=== PATIENT | male | born 1940 | race Two or more races ===

== ENCOUNTER 2023-12-01 02:30 | Inpatient (IN) | payer OTHER ==
[~2023-12-01] VITALS: Ht 185.4 cm; Wt 84.0 kg
[2023-12-01] VITALS (11 sets, daily range): BP systolic 136–159; BP diastolic 70–87; PULSE 67–89; RESP 12–20; TEMP 98.2–99.1; O2SAT 90–98
[2023-12-01] MEDS ORDERED: HYDROcodone-ACET 5/325MG TAB PO PRN (04:45)
[2023-12-01] MEDS ORDERED: DOCUSATE SOD 100 MG CAP PO PRN (04:45)
[2023-12-01] MEDS ORDERED: ALBUTEROL SULF 2.5 MG/0.5ML(0.5%) NEB SOLN NEB PRN (04:45)
[2023-12-01] MEDS ORDERED: ONDANSETRON HCL 4 MG/2 ML VIAL IV PRN (04:45)
[2023-12-01] MEDS ORDERED: MORPHINE SULFATE INJ 2 MG/ml SYRG IV PRN ×2 (04:45)
[2023-12-01] MEDS ORDERED: IPRATROPIUM BROM 0.5 MG/2.5ML INH SOL NEB PRN (04:45)
[2023-12-01] MEDS ORDERED: ACETAMINOPHEN 325 MG TAB PO PRN (04:45)
[2023-12-01] MEDS ORDERED: DEXTROSE (50%) 50ML SYRG IV PRN (04:45)
[2023-12-01] MEDS ORDERED: NITROGLYCERIN 0.4 MG SL TAB SL PRN (04:45)
[2023-12-01] MEDS ORDERED: AMLO1TAB23 PO (05:16)
[2023-12-01] MEDS ORDERED: METO25TA5 PO (05:16)
[2023-12-01] MEDS ORDERED: PRAV20TA3 PO (05:16)
[2023-12-01 05:53] LABS: Basophils # (auto) 0.1 10 ^3/uL (0-0.2); Basophils % (auto) 0.7 % (0.0-2.0); Eosinophils # (auto) 0.3 10 ^3/uL (0-0.8); Eosinophils % (auto) 3.5 % (0.0-7.0); Hematocrit 36.3 % (41.0-53.0); Hemoglobin 12.5 g/dL (13.5-17.5); Lymphocytes # (auto) 1.2 10 ^3/uL (0.4-5.4); Lymphocytes % (auto) 14.7 % (10.0-50.0); Mean Corpuscular Hemoglobin 33.5 pg (28.0-32.0); Mean Corpuscular Hgb Conc. 34.5 g/dL (32.0-36.0); Mean Corpuscular Volume 97.1 fL (80.0-100.0); Monocytes # (auto) 0.4 10 ^3/uL (0-1.3); Monocytes % (auto) 5.3 % (0.0-12.0); Neutrophils # (auto) 6.2 10 ^3/uL (1.6-8.6); Neutrophils % (auto) 75.8 % (37.0-80.0); Red Blood Cells 3.74 10^6/uL (4.5-5.90); Red Cell Distribution Width 13.6 % (11.8-14.3); White Blood Cell 8.1 10^3/uL (4.4-10.8)
[2023-12-01 05:56] LABS: INR 1.07 (0.9-1.15); Prothrombin Time 11.2 sec (9.3-11.8)
[2023-12-01 05:57] LABS: Anion Gap 10 (5-15); Carbon Dioxide 20 mmol/L (20-30); Chloride 109 mmol/L (98-107); Potassium 3.6 mmol/L (3.5-5.1); Sodium 139 mmol/L (136-145)
[2023-12-01 05:58] LABS: Calcium 8.4 mg/dL (8.7-10.4)
[2023-12-01 06:03] LABS: BUN/Creatinine Ratio 9.2 (10.0-20.0); Blood Urea Nitrogen 8 mg/dL (9-23); Glucose 151 mg/dL (74-106)
[2023-12-01] MEDS ORDERED: METOPROLOL TARTRATE 25 MG TAB PO SCH (10:00)
[2023-12-01] MEDS: PANTOPRAZOLE 40 MG/10 ML VIAL INJ IV SCH (10:37)
[2023-12-01] MEDS: ENOXAPARIN SOD 40 MG/0.4 ML SYRINGE SC SCH (10:38)
[2023-12-01] MEDS: PRAVASTATIN SODIUM 20 MG TAB PO SCH (10:39)
[2023-12-01] MEDS: amLODIPine BESYLATE 5 MG TAB PO SCH (10:40)
[2023-12-01] MEDS ORDERED: METF-370 PO (10:42)
[2023-12-01] MEDS ORDERED: INSUINJ37 SC (10:42)
[2023-12-01] MEDS: InsuLIN REG 1unit/0.01ml Soln (100units/ml) SC SCH ×3 (11:30→22:00)
[2023-12-01] MEDS: ACCU-CHEK COMFORT CURVE STRIP VI SCH ×3 (11:36→22:00)
[2023-12-01] MEDS ORDERED: POTASSIUM CHL 20 Meq TABLET PO ONE (12:45)
[2023-12-01] MEDS: MAGNESIUM SULFATE 1GM/100ML 100 ML IV SCH ×2 (13:05→15:11)
[2023-12-01] MEDS: TAMSULOSIN HYDROCHLORIDE 0.4 MG CAP PO SCH (17:36)
[2023-12-01] MEDS: INSULIN LANTUS (GLARGINE) 1 /0.01ml (100units/ml) SC SCH (22:00)
[2023-12-02] VITALS (9 sets, daily range): BP systolic 132–145; BP diastolic 79–87; PULSE 92–116; RESP 16–22; O2SAT 93–98
[2023-12-02 05:17] LABS: Basophils # (auto) 0 10 ^3/uL (0-0.2); Basophils % (auto) 0.4 % (0.0-2.0); Eosinophils # (auto) 0.2 10 ^3/uL (0-0.8); Eosinophils % (auto) 3.1 % (0.0-7.0); Hematocrit 38.1 % (41.0-53.0); Lymphocytes # (auto) 0.7 10 ^3/uL (0.4-5.4); Lymphocytes % (auto) 9.2 % (10.0-50.0); Mean Corpuscular Hemoglobin 33.5 pg (28.0-32.0); Mean Corpuscular Hgb Conc. 34.3 g/dL (32.0-36.0); Mean Corpuscular Volume 97.8 fL (80.0-100.0); Monocytes # (auto) 0.5 10 ^3/uL (0-1.3); Monocytes % (auto) 5.8 % (0.0-12.0); Neutrophils # (auto) 6.6 10 ^3/uL (1.6-8.6); Neutrophils % (auto) 81.5 % (37.0-80.0); Nucleated Red Blood Cells % 0.1 %; Red Blood Cells 3.89 10^6/uL (4.5-5.90); White Blood Cell 8.1 10^3/uL (4.4-10.8)
[2023-12-02 05:25] LABS: Anion Gap 12 (5-15); Carbon Dioxide 19 mmol/L (20-30); Chloride 107 mmol/L (98-107); Potassium 3.6 mmol/L (3.5-5.1); Sodium 138 mmol/L (136-145)
[2023-12-02 05:26] LABS: Calcium 8.2 mg/dL (8.7-10.4)
[2023-12-02 05:31] LABS: BUN/Creatinine Ratio 9.2 (10.0-20.0); Blood Urea Nitrogen 8 mg/dL (9-23); Glucose 163 mg/dL (74-106)
[2023-12-02] MEDS: InsuLIN REG 1unit/0.01ml Soln (100units/ml) SC SCH ×4 (06:32→22:03)
[2023-12-02] MEDS: ACCU-CHEK COMFORT CURVE STRIP VI SCH ×4 (06:32→22:05)
[2023-12-02] MEDS: ENOXAPARIN SOD 40 MG/0.4 ML SYRINGE SC SCH (10:00)
[2023-12-02] MEDS: PRAVASTATIN SODIUM 20 MG TAB PO SCH (11:59)
[2023-12-02] MEDS: amLODIPine BESYLATE 5 MG TAB PO SCH (11:59)
[2023-12-02] MEDS: PANTOPRAZOLE 40 MG/10 ML VIAL INJ IV SCH (11:59)
[2023-12-02] MEDS ORDERED: ceFAZolin 2 GM/D5W100ml 100 ML IV ONE (14:19)
[2023-12-02] MEDS ORDERED: AMIODARONE 450mg/250ml AE 250 ML IV SCH (16:30)
[2023-12-02] MEDS ORDERED: LEVALBUTEROL HCL 1.25 MG/3 ML NEB NEB PRN (17:15)
[2023-12-02] MEDS: LACTATED RINGER'S 1,000 ML IV SCH (17:15)
[2023-12-02] MEDS ORDERED: ONDANSETRON HCL 4 MG/2 ML VIAL IV PRN (17:15)
[2023-12-02] MEDS ORDERED: ACCU-CHEK COMFORT CURVE STRIP VI ONE (17:15)
[2023-12-02] MEDS ORDERED: NALOXONE HCL 0.4 MG/ML VIAL IV PRN (17:15)
[2023-12-02] MEDS ORDERED: DexAMETHasone SOD PHOS 10MG/1ML VIAL INJ IV PRN (17:15)
[2023-12-02] MEDS: TAMSULOSIN HYDROCHLORIDE 0.4 MG CAP PO SCH (18:00)
[2023-12-02] MEDS: ceFAZolin 1GM/50ML 50 ML IV SCH (19:54)
[2023-12-02] MEDS: INSULIN LANTUS (GLARGINE) 1 /0.01ml (100units/ml) SC SCH (22:05)
[2023-12-02] MEDS: AMIODARONE 450mg/250ml AE 250 ML IV SCH (22:22)
[2023-12-03] VITALS (23 sets, daily range): BP systolic 115–156; BP diastolic 53–96; PULSE 73–101; RESP 16–19; TEMP 97.8–98.4; O2SAT 96–99
[2023-12-03] MEDS: LACTATED RINGER'S 1,000 ML IV SCH ×3 (03:15→23:15)
[2023-12-03] MEDS: ceFAZolin 1GM/50ML 50 ML IV SCH ×2 (03:48→11:06)
[2023-12-03] MEDS: AMIODARONE 450mg/250ml AE 250 ML IV SCH (03:57)
[2023-12-03] MEDS: ACCU-CHEK COMFORT CURVE STRIP VI SCH ×4 (06:34→22:19)
[2023-12-03] MEDS: InsuLIN REG 1unit/0.01ml Soln (100units/ml) SC SCH ×4 (06:35→22:20)
[2023-12-03 07:27] LABS: Basophils # (auto) 0 10 ^3/uL (0-0.2); Basophils % (auto) 0.1 % (0.0-2.0); Eosinophils # (auto) 0 10 ^3/uL (0-0.8); Hematocrit 31.5 % (41.0-53.0); Monocytes # (auto) 0.3 10 ^3/uL (0-1.3); Neutrophils % (auto) 92.9 % (37.0-80.0); White Blood Cell 9.7 10^3/uL (4.4-10.8)
[2023-12-03 07:30] LABS: Lymphocytes # (auto) 0.4 10 ^3/uL (0.4-5.4); Lymphocytes % (auto) 3.6 % (10.0-50.0); Mean Corpuscular Hgb Conc. 34.8 g/dL (32.0-36.0); Mean Corpuscular Volume 97.6 fL (80.0-100.0); Monocytes % (auto) 3.4 % (0.0-12.0); Red Blood Cells 3.23 10^6/uL (4.5-5.90); Red Cell Distribution Width 13.5 % (11.8-14.3)
[2023-12-03 07:41] LABS: Anion Gap 9 (5-15); Calcium 8.4 mg/dL (8.5-10.1); Carbon Dioxide 20 mmol/L (20-30); Chloride 105 mmol/L (98-107); Potassium 4.1 mmol/L (3.5-5.1); Sodium 134 mmol/L (136-145)
[2023-12-03 07:47] LABS: BUN/Creatinine Ratio 11.3 (10.0-20.0); Blood Urea Nitrogen 12 mg/dL (9-23)
[2023-12-03 07:48] LABS: Glucose 332 mg/dL (74-106)
[2023-12-03] MEDS: ENOXAPARIN SOD 40 MG/0.4 ML SYRINGE SC SCH (10:55)
[2023-12-03] MEDS: amLODIPine BESYLATE 5 MG TAB PO SCH (10:56)
[2023-12-03] MEDS: PRAVASTATIN SODIUM 20 MG TAB PO SCH (10:57)
[2023-12-03] MEDS ORDERED: ceFAZolin 1GM/50ML 50 ML IV ONE (11:00)
[2023-12-03] MEDS: TAMSULOSIN HYDROCHLORIDE 0.4 MG CAP PO SCH (17:06)
[2023-12-03 17:27] LABS: COVID19 ANTIGEN SOFIA FIA NEGATIVE (NEGATIVE)
[2023-12-03] MEDS: INSULIN LANTUS (GLARGINE) 1 /0.01ml (100units/ml) SC SCH (22:21)
[2023-12-03] MEDS: KETOROLAC TROMETH 30 MG/ML 1ML VIAL IV PRN (22:33)
[2023-12-04 05:00] VITALS: BP 136/82; PULSE 84; RESP 17; TEMP 98.3; O2SAT 98
[2023-12-04 06:52] LABS: Basophils # (auto) 0 10 ^3/uL (0-0.2); Eosinophils # (auto) 0 10 ^3/uL (0-0.8); Hemoglobin 9.9 g/dL (13.5-17.5); Monocytes # (auto) 0.4 10 ^3/uL (0-1.3)
[2023-12-04 06:55] LABS: Basophils % (auto) 0.1 % (0.0-2.0); Eosinophils % (auto) 0.5 % (0.0-7.0); Hematocrit 27.9 % (41.0-53.0); Lymphocytes # (auto) 0.5 10 ^3/uL (0.4-5.4); Lymphocytes % (auto) 6.8 % (10.0-50.0); Mean Corpuscular Hemoglobin 34.5 pg (28.0-32.0); Mean Corpuscular Hgb Conc. 35.5 g/dL (32.0-36.0); Mean Corpuscular Volume 97.1 fL (80.0-100.0); Neutrophils # (auto) 6.9 10 ^3/uL (1.6-8.6); Neutrophils % (auto) 87.6 % (37.0-80.0); Red Blood Cells 2.87 10^6/uL (4.5-5.90); Red Cell Distribution Width 13.9 % (11.8-14.3); White Blood Cell 7.9 10^3/uL (4.4-10.8)
[2023-12-04] MEDS: ACCU-CHEK COMFORT CURVE STRIP VI SCH ×3 (07:00→17:47)
[2023-12-04 07:05] LABS: Anion Gap 8 (5-15); Carbon Dioxide 22 mmol/L (20-30); Chloride 106 mmol/L (98-107); Potassium 3.5 mmol/L (3.5-5.1); Sodium 136 mmol/L (136-145)
[2023-12-04 07:06] LABS: Calcium 8.2 mg/dL (8.7-10.4)
[2023-12-04 07:11] LABS: BUN/Creatinine Ratio 17.3 (10.0-20.0); Blood Urea Nitrogen 14 mg/dL (9-23); Glucose 235 mg/dL (74-106)
[2023-12-04] MEDS: InsuLIN REG 1unit/0.01ml Soln (100units/ml) SC SCH ×3 (07:46→17:47)
[2023-12-04 08:00] VITALS: PULSE 70
[2023-12-04 09:00] VITALS: BP 132/61; PULSE 74; RESP 18; TEMP 98.2; O2SAT 96
[2023-12-04] MEDS: PRAVASTATIN SODIUM 20 MG TAB PO SCH (10:17)
[2023-12-04] MEDS: amLODIPine BESYLATE 5 MG TAB PO SCH (10:18)
[2023-12-04] MEDS: ENOXAPARIN SOD 40 MG/0.4 ML SYRINGE SC SCH (10:18)
[2023-12-04] MEDS: KETOROLAC TROMETH 30 MG/ML 1ML VIAL IV PRN ×2 (10:26→17:31)
[2023-12-04 13:00] VITALS: BP 139/68; PULSE 67; RESP 18; TEMP 98.9; O2SAT 97
[2023-12-04 16:39] VITALS: BP 140/66; PULSE 72; RESP 17; TEMP 98; O2SAT 98
[2023-12-04] MEDS: TAMSULOSIN HYDROCHLORIDE 0.4 MG CAP PO SCH (17:46)
== END 2023-12-04 19:15 | DRG 481 ==
LOC: TELE-WESTW 04:22 → UNDOADMIN 04:22 → TELE-WESTW 04:58
PROVIDERS: ADMIT Nurse Practitioner Family; ATTEND Hospitalist
PROC: 0QS704Z Reposition Left Upper Femur with Internal Fixation Device, Open Approach (ICD-10-PCS; principal; 2023-12-02 15:39)
DX: S72.142A Displaced intertrochanteric fracture of left femur, initial encounter for closed fracture (principal); I47.10 Supraventricular tachycardia, unspecified; I48.20 Chronic atrial fibrillation, unspecified; I11.0 Hypertensive heart disease with heart failure; E11.9 Type 2 diabetes mellitus without complications; I50.9 Heart failure, unspecified; N40.0 Benign prostatic hyperplasia without lower urinary tract symptoms; Z20.822 Contact with and (suspected) exposure to COVID-19; E78.5 Hyperlipidemia, unspecified; J44.9 Chronic obstructive pulmonary disease, unspecified; F03.A0 Unspecified dementia, mild, without behavioral disturbance, psychotic disturbance, mood disturbance, and anxiety; I48.0 Paroxysmal atrial fibrillation; I45.10 Unspecified right bundle-branch block; W18.39XA Other fall on same level, initial encounter; I25.2 Old myocardial infarction; Z95.2 Presence of prosthetic heart valve; Z82.0 Family history of epilepsy and other diseases of the nervous system; Z80.3 Family history of malignant neoplasm of breast; Z88.2 Allergy status to sulfonamides; Y93.89 Activity, other specified; Y92.89 Other specified places as the place of occurrence of the external cause; Y99.8 Other external cause status
CPT/HCPCS: 36415; 71045; 72192; 73502; 76000; 80048; 82962; 83735; 85025; 85610; 87426; 93306; 97110; 97116; 97163; 97530; C9113; G0378; J1815; J1885

== ENCOUNTER 2024-01-06 17:38 | Emergency (ER) | payer OTHER ==
[~2024-01-06] VITALS: Ht 185.4 cm; Wt 76.1 kg
[2024-01-06 17:38] VITALS: BP 145/73; RESP 15; O2SAT 98
[~2024-01-06 17:38] MED LIST: AMLO1TAB23 PO; INSUINJ37 SC; METF-370 PO; METO25TA5 PO; PRAV20TA3 PO
[2024-01-06 18:05] VITALS: PULSE 77
[2024-01-06 18:57] LABS: Basophils # (auto) 0.1 10 ^3/uL (0-0.2); Basophils % (auto) 0.9 % (0.0-2.0); Eosinophils # (auto) 0.3 10 ^3/uL (0-0.8); Eosinophils % (auto) 5.3 % (0.0-7.0); Hematocrit 39.6 % (41.0-53.0); Hemoglobin 13.2 g/dL (13.5-17.5); Lymphocytes # (auto) 1.3 10 ^3/uL (0.4-5.4); Lymphocytes % (auto) 21.1 % (10.0-50.0); Mean Corpuscular Hemoglobin 33.8 pg (28.0-32.0); Mean Corpuscular Hgb Conc. 33.4 g/dL (32.0-36.0); Monocytes # (auto) 0.4 10 ^3/uL (0-1.3); Monocytes % (auto) 6.3 % (0.0-12.0); Neutrophils # (auto) 4.2 10 ^3/uL (1.6-8.6); Neutrophils % (auto) 66.4 % (37.0-80.0); Nucleated Red Blood Cells % 0.1 %; Red Blood Cells 3.92 10^6/uL (4.5-5.90); Red Cell Distribution Width 15.8 % (11.8-14.3); White Blood Cell 6.4 10^3/uL (4.4-10.8)
[2024-01-06 19:03] LABS: Alanine Aminotransferase 10 U/L (7-40); Albumin 4.4 g/dL (3.2-4.8); Alkaline Phosphatase 132 U/L (46-116); Anion Gap 7 (5-15); Aspartate Aminotransferase 16 U/L (13-40); BUN/Creatinine Ratio 12.6 (10.0-20.0); Bilirubin, Total 0.5 mg/dL (0.2-1.0); Blood Urea Nitrogen 13 mg/dL (9-23); Calcium 9.8 mg/dL (8.5-10.1); Carbon Dioxide 25 mmol/L (20-30); Chloride 109 mmol/L (98-107); Glucose 120 mg/dL (74-106); Potassium 4.2 mmol/L (3.5-5.1); Sodium 141 mmol/L (136-145); Total Protein 7.9 g/dL (5.7-8.2)
== END 2024-01-06 19:48 | disposition left against medical advice (07) ==
LOC: ER 17:38
DX: R00.1 Bradycardia, unspecified (principal); Z53.21 Procedure and treatment not carried out due to patient leaving prior to being seen by health care provider
CPT/HCPCS: 36415; 80053; 84484; 85025; 93005

== ENCOUNTER 2025-04-22 22:36 | Inpatient (IN) | payer OTHER ==
[~2025-04-22] VITALS: Ht 188 cm; Wt 76.1 kg
--- NOTE | 2025-04-22 23:00 | ED.PDOC ---
HPI Comments 84-year-old Male who came to ER via EMS for chest pains. Per EMS, patient picked up at home, so extensive cardiac history including hypertension, diabetes, AFib, CHF, COPD, mi, dementia, status post valve replacement. This morning, patient has been complaining of chest pains, and he self-medicated with 4 nitroglycerin which provided relief for the pain, At about 7pm, he started experiencing upper back pains, so he took his aspirin prior to calling paramedics for help. At this time he states pain has resolved, denies any nausea, vomiting or shortness of breath Chief Complaint: Chest Pain Time Seen by MD: 22:59 Primary Care Provider: NONE Reviewed Notes: Specialty Development Consultant Notes Allergies: Coded Allergies: Sulfa Antibiotics (Verified Allergy, Unknown, 12/01/23) Home Meds Reported Medications Insulin Glargine (Lantus Solostar) 100 Unit/Ml Inj, 0-50 UNIT SC DAILY 12/01/23 Metformin Hydrochloride (Metformin Hcl) 500 Mg Tab, 1 TAB PO BID 12/01/23 Pravastatin Sodium (PRAVACHOL TABLET) 20 Mg Tb, 1 TAB PO DAILY, #30 TAB 5 Refills 12/01/23 Amlodipine Besylate (Amlodipine Besylate) 10 Mg Tab, 1 TAB PO DAILY, #30 TAB 5 Refills 12/01/23 Metoprolol Tartrate (Metoprolol Tartrate) 25 Mg Tab, 25 MG PO DAILY, TAB 12/01/23 Information Source: Patient, Emergency Med Personnel Mode of Arrival: EMS Severity: Moderate Timing: Hours Duration: Intermittent Prehospital treatment: ASA, NTG, Oxygen Location: Substernal Radiation: Back Quality: Pressure Onset: With Light Exertion Cardiac Risk Factors: HTN, Diabetes History of: Similar pain in past, [place] Associated Signs and Symptoms: Back Pain Past Medical History PAST MEDICAL HISTORY: AFIB, CHF, COPD, Dementia, DM, HTN, [place] Surgical History (Other): Left hip surgery, valve replacement Family History Family History: Reviewed,noncontributory to illness Social History Smoker: Non-Smoker Alcohol: Denies ETOH Use Drugs: Denies Drug Use Lives In: Home Constitutional: denies: chills, diaphoresis, fatigue, fever, malaise, sweats, weakness, others EENTM: denies: blurred vision, double vision, ear bleeding, ear discharge, ear drainage, ear pain, ear ringing, eye pain, eye redness, hearing loss, mouth pain, mouth swelling, nasal discharge, nose bleeding, nose congestion, nose pain, photophobia, tearing, throat pain, throat swelling, voice changes, others Respiratory: denies: cough, hemoptysis, orthopnea, SOB at rest, shortness of breath, SOB with excertion, stridor, wheezing, others Cardiovascular: reports: chest pain; denies: dizzy spells, diaphoresis, Dyspnea on exertion, edema, irregular heart beat, left arm pain, lightheadedness, palpitations, PND, syncope, others Gastrointestinal: denies: abdomen distended, abdominal pain, blood streaked bowels, constipated, diarrhea, dysphagia, difficulty swallowing, hematemesis, melena, nausea, poor appetite, poor fluid intake, rectal bleeding, rectal pain, vomiting, others Genitourinary: denies: burning, dysuria, flank pain, frequency, hematuria, incontinence, penile discharge, penile sore, pain, testicle pain, testicle swelling, urgency, others Neurological: denies: dizziness, fainting, headache, left sided numbness, left sided weakness, numbness, paresthesia, pre-existing deficit, right sided numbness, right sided weakness, seizure, speech problems, tingling, tremors, weakness, others Musculoskeletal: reports: back pain; denies: gout, joint pain, joint swelling, muscle pain, muscle stiffness, neck pain, others Integumetry: denies: bruises, change in color, change in hair/nails, dryness, laceration, lesions, lumps, rash, wounds, others Allergic/Immunocompromised: denies: Difficulty Healing, Frequent Infections, Hives, Itching, others Hematologic/Lymphatic: denies: anemia, blood clots, easy bleeding, easy bruising, swollen glands, others Endocrine: denies: excessive hunger, excessive sweating, excessive thirst, excessive urination, flushing, intolerance to cold, intolerance to heat, unexplained weight gain, unexplained weight loss, others Psychiatric: denies: anxiety, bipolar disorder, depression, hopeless, panic disorder, schizophrenia, sleepless, suicidal, others Physical Exam General Appearance: No Apparent Distress, Normal HEENT: Normal ENT Inspection, Pharynx Normal, TMs Normal Neck: Full Range of Motion, Non-Tender, Normal, Normal Inspection Respiratory: Chest Non-Tender, Lungs Clear, No Accessory Muscle Use, No Respiratory Distress, Normal Breath Sounds Cardiovascular: No Edema, No JVD, No Murmur, No Gallop, Normal Peripheral Pulses, Regular Rate/Rhythm Breast Exam: Deferred Gastrointestinal: No Organomegaly, Non Tender, No Pulsatile Mass, Normal Bowel Sounds, Soft Genitalia: Deferred Pelvic: Deferred Rectal: Deferred Extremities: No calf tenderness, Normal capillary refill, Normal inspection, Normal range of motion, Non-tender, No pedal edema Musculoskeletal : Apperance: Normal Neurologic: Alert, tunnel worker II-XII nml as Tested, No Motor Deficits, Normal Affect, Normal Mood, No Sensory Deficits Cerebellar Function: Normal Reflexes: Normal Skin: Dry, Normal Color, Warm Lymphatic: No Adenopathy Was a procedure done? Was a procedure done?: No CP Differential Dx Differential Diagnosis: Angina, Anxiety / Panic Attack Differential Diagnosis: Angina, Chest Wall Pain, Costochondritis, Esophageal reflux/spasm, Gastritis, Myocardial Infarction X-Ray, Labs, Meds, VS Vital Signs Date Time Temp Pulse Resp B/P (MAP) Pulse Ox O2 Delivery O2 Flow Rate FiO2 04/23/25 02:09 68 16 139/58 (85) 96 04/23/25 02:06 68 16 96 Room Air* 0 21 04/23/25 01:41 70 04/23/25 01:00 75 15 113/62 (79) 92 04/23/25 00:00 77 04/22/25 23:38 85 04/22/25 23:10 87 16 94 Room Air* 0 21 04/22/25 23:07 97.8 87 16 144/75 (98) 94 97.8 04/22/25 22:38 90 04/22/25 22:36 98.2 89 16 160/82 (108) 94 98.2 Lab Test 04/23/25 01:46 04/22/25 23:30 04/22/25 22:38 Range/Units Troponin I High Sensitivity 182 *H 89 *H 43 </=54 ng/L White Blood Count 4.9 4.4-10.8 10^3/uL Red Blood Count 3.21 L 4.5-5.90 10^6/uL Hemoglobin 9.3 L 13.5-17.5 g/dL Hematocrit 28.2 L 41.0-53.0 % Mean Corpuscular Volume 87.8 80.0-100.0 fL Mean Corpuscular Hemoglobin 29.0 28.0-32.0 pg Mean Corpuscular Hemoglobin Concent 33.0 32.0-36.0 g/dL Red Cell Distribution Width 15.5 H 11.8-14.3 % Platelet Count 176 140-450 10^3/uL Mean Platelet Volume 8.8 6.9-10.8 fL Neutrophils (%) (Auto) 71.8 37.0-80.0 % Lymphocytes (%) (Auto) 14.2 10.0-50.0 % Monocytes (%) (Auto) 7.2 0.0-12.0 % Eosinophils (%) (Auto) 6.2 0.0-7.0 % Basophils (%) (Auto) 0.6 0.0-2.0 % Neutrophils # (Auto) 3.5 1.6-8.6 10 ^3/uL Lymphocytes # (Auto) 0.7 0.4-5.4 10 ^3/uL Monocytes # (Auto) 0.4 0-1.3 10 ^3/uL Eosinophils # (Auto) 0.3 0-0.8 10 ^3/uL Basophils # (Auto) 0 0-0.2 10 ^3/uL Nucleated Red Blood Cells 0.0 % Prothrombin Time 10.8 9.3-11.8 sec Prothrombin Time INR 1.02 0.9-1.15 Activated Partial Thromboplast Time 26.6 24.5-34.5 SEC Sodium Level 142 136-145 mmol/L Potassium Level 2.8 L 3.5-5.1 mmol/L Chloride Level 109 H 98-107 mmol/L Carbon Dioxide Level 23 20-31 mmol/L Anion Gap 10 5-15 Blood Urea Nitrogen 10 9-23 mg/dL Creatinine 1.08 0.700-1.30 mg/dL Glomerular Filtration Rate Calc 67 >90 mL/min BUN/Creatinine Ratio 9.3 L 10.0-20.0 Serum Glucose 212 H 74-106 mg/dL Calcium Level 8.5 L 8.7-10.4 mg/dL Magnesium Level 2.0 1.6-2.6 mg/dL Total Bilirubin 0.6 0.2-1.0 mg/dL Aspartate Amino Transferase (AST) < 8 L 13-40 U/L Alanine Aminotransferase (ALT) < 9 7-40 U/L Alkaline Phosphatase 103 46-116 U/L B-Type Natriuretic Peptide 483.26 0-100 pg/mL Total Protein 7.4 5.7-8.2 g/dL Albumin 4.0 3.2-4.8 g/dL Current Medications Medications (Trade) Dose Ordered Sig/Zabrina Route Start Time Stop Time Status Last Admin Potassium Chloride (Klor-Con Tablet) 40 meq ONCE ONCE PO 04/23/25 00:00 04/23/25 00:01 DC 04/23/25 00:22 Time of 1ST Reevaluation: 22:53 Reevaluation 1ST: Unchanged Patient Education/Counseling: Diagnosis, Treatment Family Education/Counseling: No Family Present Departure 1 Departure Time of Disposition: 02:00 Impression: Primary Impression: Acute coronary syndrome Disposition: ADMITTED INPATIENT Condition: Guarded Discharged With: Self Critical Care Note Critical Care Time?: Yes (35 min-critical care time only) Critical care comment: Chest pains Stability Stability form required: No Heart Score Heart Score: Heart Score Response (Comments) Value History Moderate Suspicious 1 EKG Repolarization Disturb 1 Age >65 2 Risk Factors >3 or Hx ASHD 2 Troponin Normal limit 0 Total 6 I personally scribed for SHEILA GUTIERREZ MD ([email or web address]) on 04/22/25 at 23:00. Electronically submitted by Brown Rosales ([facility]). SHEILA GUTIERREZ MD April 22, 2025 23:00
[2025-04-22 23:05] LABS: Basophils # (auto) 0 10 ^3/uL (0-0.2); Basophils % (auto) 0.6 % (0.0-2.0); Eosinophils # (auto) 0.3 10 ^3/uL (0-0.8); Eosinophils % (auto) 6.2 % (0.0-7.0); Hematocrit 28.2 % (41.0-53.0); Hemoglobin 9.3 g/dL (13.5-17.5); Lymphocytes # (auto) 0.7 10 ^3/uL (0.4-5.4); Lymphocytes % (auto) 14.2 % (10.0-50.0); Mean Corpuscular Volume 87.8 fL (80.0-100.0); Monocytes # (auto) 0.4 10 ^3/uL (0-1.3); Monocytes % (auto) 7.2 % (0.0-12.0); Neutrophils # (auto) 3.5 10 ^3/uL (1.6-8.6); Neutrophils % (auto) 71.8 % (37.0-80.0); Platelet Count (auto) 176 10^3/uL (140-450); Red Blood Cells 3.21 10^6/uL (4.5-5.90); Red Cell Distribution Width 15.5 % (11.8-14.3); White Blood Cell 4.9 10^3/uL (4.4-10.8)
[2025-04-22 23:10] VITALS: PULSE 87; RESP 16; O2SAT 94
[2025-04-22 23:13] LABS: INR 1.02 (0.9-1.15); Partial Thromboplastin Time 26.6 SEC (24.5-34.5); Prothrombin Time 10.8 sec (9.3-11.8)
[2025-04-22 23:15] LABS: Alkaline Phosphatase 103 U/L (46-116); Anion Gap 10 (5-15); BUN/Creatinine Ratio 9.3 (10.0-20.0); Blood Urea Nitrogen 10 mg/dL (9-23); Carbon Dioxide 23 mmol/L (20-31); Sodium 142 mmol/L (136-145); Total Protein 7.4 g/dL (5.7-8.2)
[2025-04-22 23:16] LABS: Bilirubin, Total 0.6 mg/dL (0.2-1.0)
[2025-04-22 23:18] LABS: Alanine Aminotransferase < 9 U/L (7-40); Aspartate Aminotransferase < 8 U/L (13-40); Calcium 8.5 mg/dL (8.7-10.4); Chloride 109 mmol/L (98-107); Glucose 212 mg/dL (74-106); Potassium 2.8 mmol/L (3.5-5.1)
--- NOTE | 2025-04-22 23:54 | DVH ---
CHEST RADIOGRAPH Indication: chest pain Technique: Single frontal view of the chest was obtained COMPARISON: XY CHEST PORTABLE on DOS: 12/01/23 FINDINGS: Lines and Tubes: None Lungs: No evidence of pulmonary infiltrates or edema. Mild chronic appearing reticular opacities not ed at the lung bases. Pleura: No effusion. No pneumothorax. Cardiomediastinal contours: Mild cardiomegaly. IMPRESSION: No acute disease.
[2025-04-23] VITALS (9 sets, daily range): BP systolic 126–217; BP diastolic 57–111; PULSE 51–88; RESP 16–18; TEMP 96.7–98.5; O2SAT 95–99
[2025-04-23] MEDS: POTASSIUM CHL 20 Meq TABLET PO ONE ×2 (00:22→06:13)
[2025-04-23] MEDS ORDERED: ASPirin 81 mg TAB PO ONE (00:30)
[2025-04-23] MEDS ORDERED: DOCUSATE SOD 100 MG CAP PO PRN (03:00)
[2025-04-23] MEDS ORDERED: MORPHINE SULFATE INJ 2 MG/ml SYRG IV PRN (03:00)
[2025-04-23] MEDS ORDERED: DEXTROSE (50%) 50ML SYRG IV PRN (03:00)
--- NOTE | 2025-04-23 03:23 | ECG ---
[facility] Test Date: 2025-04-22 Test Time: 23:38:08 Pat Name: CONNOR ALBERTO Department: ED Room: 0220T Gender: M Auto Wrecker: JANKI : 1940 Requested By: SHEILA GUTIERREZ Order Number: [id number] Reading MD: Doni Puentes Measurements Intervals [place] Rate: 85 P: -33 IA: 208 QRS: -71 QRSD: 167 T: 86 QT: 443 QTc: 527 Interpretive Statements Sinus rhythm RBBB and LAFB Left ventricular hypertrophy Baseline wander in lead(s) I,II,aVR Electronically Signed On 04-26-2025 12:00:28 PDT by Doni Puentes Please click the below link to view image of tracing.
--- NOTE | 2025-04-23 03:23 | ECG ---
[facility] Test Date: 2025-04-22 Test Time: 22:38:52 Pat Name: CONNOR ALBERTO Department: ED Room: 0220T Gender: M Hospitalist Nocturnist Physician: JANKI : 1940 Requested By: SHEILA GUTIERREZ Order Number: [id number] Reading MD: Doni Puentes Measurements Intervals [place] Rate: 90 P: 18 CT: 202 QRS: -75 QRSD: 171 T: 93 QT: 439 QTc: 538 Interpretive Statements Sinus rhythm Right bundle branch block LVH with IVCD and secondary repol abnrm Prolonged QT interval Electronically Signed On 04-26-2025 12:00:19 PDT by Doni Puentes Please click the below link to view image of tracing.
--- NOTE | 2025-04-23 03:24 | ECG ---
[facility] Test Date: 2025-04-23 Test Time: 01:41:06 Pat Name: CONNOR ALBERTO Department: ED Room: 0220T Gender: M Adolescent Psychiatrist: adalberto : 1940 Requested By: HSEILA GUTIERREZ Order Number: [id number] Reading MD: Doni Puentes Measurements Intervals [place] Rate: 70 P: -37 AL: 236 QRS: -67 QRSD: 170 T: 80 QT: 463 QTc: 500 Interpretive Statements Sinus rhythm Prolonged AL interval RBBB and LAFB Left ventricular hypertrophy Baseline wander in lead(s) V2,V4 Electronically Signed On 04-26-2025 12:01:10 PDT by Doni Puentes Please click the below link to view image of tracing.
[2025-04-23 03:55] LABS: Anion Gap 10 (5-15); Carbon Dioxide 22 mmol/L (20-31); Sodium 142 mmol/L (136-145)
[2025-04-23] MEDS: InsuLIN REG 1unit/0.01ml Soln (100units/ml) SC SCH (04:00)
[2025-04-23] MEDS: ACCU-CHEK COMFORT CURVE STRIP VI SCH (04:00)
[2025-04-23 04:01] LABS: Blood Urea Nitrogen 10 mg/dL (9-23)
[2025-04-23 04:05] LABS: Basophils # (auto) 0 10 ^3/uL (0-0.2); Basophils % (auto) 0.5 % (0.0-2.0); Eosinophils # (auto) 0.3 10 ^3/uL (0-0.8); Hematocrit 26.9 % (41.0-53.0); Hemoglobin 8.9 g/dL (13.5-17.5); Lymphocytes # (auto) 1.1 10 ^3/uL (0.4-5.4); Lymphocytes % (auto) 25.2 % (10.0-50.0); Mean Corpuscular Hemoglobin 29.3 pg (28.0-32.0); Mean Corpuscular Volume 88.8 fL (80.0-100.0); Monocytes # (auto) 0.5 10 ^3/uL (0-1.3); Monocytes % (auto) 10.4 % (0.0-12.0); Neutrophils # (auto) 2.5 10 ^3/uL (1.6-8.6); Neutrophils % (auto) 56.9 % (37.0-80.0); Nucleated Red Blood Cells % 0.1 %; Platelet Count (auto) 161 10^3/uL (140-450); Red Blood Cells 3.03 10^6/uL (4.5-5.90); Red Cell Distribution Width 15.4 % (11.8-14.3); White Blood Cell 4.3 10^3/uL (4.4-10.8)
[2025-04-23 04:15] LABS: Calcium 8.4 mg/dL (8.7-10.4); Chloride 110 mmol/L (98-107); Glucose 119 mg/dL (74-106); Potassium 3.1 mmol/L (3.5-5.1)
--- NOTE | 2025-04-23 05:17 | DVHHP2 ---
MACRINA DONALD CARE PROVIDER 04/23/25 0517: History of Present Illness Reason for Visit: Chest pain History of Present Illness 84-year-old male with past medical history of CHF, AFib, COPD, DM, dementia, hard of hearing presents with complaints of chest pain x1 day. Information in this HPI is limited due to the patient being a poor historian and having difficulty with hearing. Patient reported treating with sublingual nitroglycerin. Which improved chest pain. During the emergency department evaluation troponin 43/89/182 at this time patient denies fevers, chills, shortness of breath, palpitations, nausea, vomiting. Cardiovascular: AFIB, CHF, HTN Smoke: No ALCOHOL: none Lives: with Family Review of Systems Constitutional: No: Fever, Chills, Sweats, Weakness, Malaise, Other Eyes: No: Pain, Vision change, Conjunctivae inflammation, Eyelid inflammation, Other, Redness ENT: No: Ear pain, Ear discharge, Nose pain, Nose discharge, Nose congestion, Mouth pain, Mouth swelling, Throat pain, Throat swelling, Other Respiratory: No: Cough, Dry, Shortness of breath, SOB with excertion, Wheezing, Hemoptysis, Pleuritic Pain, Sputum, Wheezing, Other Cardiovascular: Chest Pain; No: Palpitations, Orthopnea, Paroxysmal Noc. Dyspnea, Edema, Lt Headedness, Other Gastrointestinal: No: Nausea, Vomiting, Abdominal Pain, Diarrhea, Constipation, Melena, Hematochezia, Other Genitourinary: No Dysuria, No Frequency, No Incontinence, No Hematuria, No Retention, No Other Musculoskeletal: No: other, neck pain, shoulder pain, arm pain, back pain, hand pain, leg pain, foot pain Skin: No: Rash, Lesions, Jaundice, Bruising, Other Neurological: No: Weakness, Numbness, Incoordination, Change in speech, Confusion, Seizures, Other Allergies: Coded Allergies: Sulfa Antibiotics (Verified Allergy, Unknown, 12/01/23) Medications Current Medications Medications Dose Ordered Sig/Zabrina Route Start Time Stop Time Status Last Admin Dose Admin Docusate Sodium 100 mg BIDPRN PRN PO 04/23/25 03:00 Acetaminophen 650 mg Q6HP PRN PO 04/23/25 03:00 Ondansetron HCl 4 mg Q4HP PRN IV 04/23/25 03:00 Morphine Sulfate 2 mg Q4HPRN PRN IV 04/23/25 03:00 Enoxaparin Sodium 40 mg DAILY SC 04/23/25 10:00 Nitroglycerin 0.4 mg Q5MINP PRN SL 04/23/25 03:00 Morphine Sulfate 2 mg Q30M PRN IV 04/23/25 03:00 Diagnostic Test (Pha) 1 strip IQ4HR 04/23/25 04:00 04/23/25 04:00 1 STRIP Insulin Human Regular IQ4HR SC 04/23/25 04:00 Dextrose 50 ml UD PRN IV 04/23/25 03:00 Aspirin 81 mg DAILY PO 04/23/25 10:00 Metoprolol Tartrate 25 mg DAILY PO 04/23/25 10:00 Exam Vital Signs Vital Signs Date Time Temp Pulse Resp B/P (MAP) Pulse Ox O2 Delivery O2 Flow Rate FiO2 04/23/25 04:00 76 04/23/25 04:00 97.3 18 154/58 (90) 96 97.3 04/23/25 02:06 Room Air* 0 21 General Appearance: Alert, Oriented X3, Cooperative, No acute distress HEENT: Atraumatic, PERRLA, Other (Hard of hearing) Respiratory: Clear to auscultation, Normal air movement Cardiovascular: Regular rate, Normal S1, Normal S2 Abdominal: Normal bowel sounds, Soft, No tenderness Extremities: No cyanosis, No edema Skin: No rashes, No breakdown Psych/Mental Status: Mental status NL, Mood NL Labs/Xrays Labs Test 04/23/25 04:34 04/23/25 03:26 04/23/25 01:46 04/22/25 22:38 Range/Units POC Glucose 83 70-106 mg/dl White Blood Count 4.3 L 4.4-10.8 10^3/uL Red Blood Count 3.03 L 4.5-5.90 10^6/uL Hemoglobin 8.9 L 13.5-17.5 g/dL Hematocrit 26.9 L 41.0-53.0 % Mean Corpuscular Volume 88.8 80.0-100.0 fL Mean Corpuscular Hemoglobin 29.3 28.0-32.0 pg Mean Corpuscular Hemoglobin Concent 33.0 32.0-36.0 g/dL Red Cell Distribution Width 15.4 H 11.8-14.3 % Platelet Count 161 140-450 10^3/uL Mean Platelet Volume 8.8 6.9-10.8 fL Neutrophils (%) (Auto) 56.9 37.0-80.0 % Lymphocytes (%) (Auto) 25.2 10.0-50.0 % Monocytes (%) (Auto) 10.4 0.0-12.0 % Eosinophils (%) (Auto) 7.0 0.0-7.0 % Basophils (%) (Auto) 0.5 0.0-2.0 % Neutrophils # (Auto) 2.5 1.6-8.6 10 ^3/uL Lymphocytes # (Auto) 1.1 0.4-5.4 10 ^3/uL Monocytes # (Auto) 0.5 0-1.3 10 ^3/uL Eosinophils # (Auto) 0.3 0-0.8 10 ^3/uL Basophils # (Auto) 0 0-0.2 10 ^3/uL Nucleated Red Blood Cells 0.1 % Sodium Level 142 136-145 mmol/L Potassium Level 3.1 L 3.5-5.1 mmol/L Chloride Level 110 H 98-107 mmol/L Carbon Dioxide Level 22 20-31 mmol/L Anion Gap 10 5-15 Blood Urea Nitrogen 10 9-23 mg/dL Creatinine 1.00 0.700-1.30 mg/dL Glomerular Filtration Rate Calc 73 >90 mL/min BUN/Creatinine Ratio 10.0 10.0-20.0 Serum Glucose 119 H 74-106 mg/dL Calcium Level 8.4 L 8.7-10.4 mg/dL Troponin I High Sensitivity 182 *H </=54 ng/L Prothrombin Time 10.8 9.3-11.8 sec Prothrombin Time INR 1.02 0.9-1.15 Activated Partial Thromboplast Time 26.6 24.5-34.5 SEC Magnesium Level 2.0 1.6-2.6 mg/dL Total Bilirubin 0.6 0.2-1.0 mg/dL Aspartate Amino Transferase (AST) < 8 L 13-40 U/L Alanine Aminotransferase (ALT) < 9 7-40 U/L Alkaline Phosphatase 103 46-116 U/L B-Type Natriuretic Peptide 483.26 0-100 pg/mL Total Protein 7.4 5.7-8.2 g/dL Albumin 4.0 3.2-4.8 g/dL Assessment/Plan Assessment/Plan Chest pain Elevated troponin Hypokalemia DM Hx AFIB Hx CHF HX COPD Plan Admit to telemetry Cardiology consult. Echocardiogram. ACS protocol: ASA, beta sabrina, statin. Continue home medication's after medication reconciliation that we completed. Serial troponin.. Bronchodilators. As needed supplemental oxygen to maintain O2 saturation greater than 93% Monitor BMP. Correct electrolytes as needed GI ppx protonix / dvt ppx lovenox Plan discussed with: Patient My Orders Orders - MACRINA DONALD NP Procedure Category Date Status Time Admit ADMIT 04/23/25 Transmitted 02:48 Code Status CODE 04/23/25 Transmitted 02:48 Vital Signs LUIGI 04/23/25 In Process 02:48 Review Orders With LUIGI 04/23/25 In Process Adm. 02:48 Encourage Activity As LUIGI 04/23/25 In Process Tolerate 02:48 Oxygen By Face Mask RT 04/23/25 Transmitted 02:48 Docusate Sodium PHA 04/23/25 In Process Capsule (Colace 03:00 Acetaminophen Tablet PHA 04/23/25 In Process (Tylenol Tablet) 03:00 Notify Of Changes LUIGI 04/23/25 In Process From Base 02:48 Advance Directive LUIGI 04/23/25 In Process 02:48 Echo 2d Mode Cardiac US 04/23/25 Logged DOP 02:48 Basic Metabolic Panel LAB 04/24/25 Verified 05:00 Basic Metabolic Panel LAB 04/25/25 Verified 05:00 Basic Metabolic Panel LAB 04/26/25 Verified 05:00 Basic Metabolic Panel LAB 04/27/25 Verified 05:00 Complete Blood Count LAB 04/24/25 Verified 05:00 Complete Blood Count LAB 04/25/25 Verified 05:00 Complete Blood Count LAB 04/26/25 Verified 05:00 Complete Blood Count LAB 04/27/25 Verified 05:00 Patient Condition ORDERS 04/23/25 Transmitted 02:48 Allergies LUIGI 04/23/25 In Process 02:48 Ondansetron Hcl PHA 04/23/25 In Process (Zofran) 03:00 Morphine Sulfate PHA 04/23/25 In Process Injection 03:00 Enoxaparin Sodium PHA 04/23/25 In Process (Lovenox) 10:00 Sequential LUIGI 04/23/25 In Process Compression Device Nitroglycerin PHA 04/23/25 In Process Sublingual (Ntrostat 03:00 Morphine Sulfate PHA 04/23/25 In Process Injection 03:00 Stat Ekg For Chest LUIGI 04/23/25 In Process Pain 02:48 Notify Md Of Changes [facility] 04/23/25 In Process From Base 02:48 Conductor Yard For [facility] 04/23/25 In Process 24 Hours 02:48 Emergency Dysrhythmia LUIGI 04/23/25 In Process Protocol 02:48 Rhythm Strips Once LUIGI 04/23/25 In Process Every Shift 02:48 Oxygen By Nasal RT 04/23/25 Transmitted Cannula 02:48 Glucose Blood PHA 04/23/25 In Process (Accu-Chek Comfort 04:00 Insulin R (Human) PHA 04/23/25 In Process (Insulin R) 04:00 Dextrose 50% Syringe PHA 04/23/25 In Process 03:00 Aspirin Enteric PHA 04/23/25 In Process Coated Tablet 10:00 Metoprolol Tartrate PHA 04/23/25 In Process Tablet (Lopressor Ta 10:00 * Cardiology Consult CONS 04/23/25 Transmitted 02:48 Troponin-I Hs LAB 04/23/25 Logged 06:00 Troponin-I Hs LAB 04/23/25 Logged 14:00 Troponin-I Hs LAB 04/23/25 Logged 22:00 Consistent DIET 04/23/25 Transmitted Carb(Ccho)Diabetes Breakfast Potassium Er Tablet PHA 04/23/25 Transmitted (Klor-Con Tablet) 05:15 Date of Service: April 23, 2025 Billing Provider: SANDRA MCFARLANE MD Common Visit Codes: NOT BILLABLE SANDRA MCFARLANE MD 04/23/25 1521: Review of Systems Allergies: Coded Allergies: Sulfa Antibiotics (Verified Allergy, Unknown, 12/01/23) Additional Comments Additional Comments Additional Comments The patient was seen and evaluated by me. I agree with the assessment and plan of my nurse practitioner. We will wait for Cardiology evaluation. MACRINA DONALD NP April 23, 2025 05:17 SANDRA MCFARLANE MD April 23, 2025 15:21
[2025-04-23] MEDS: ASPirin-EC 81 mg tab PO SCH (08:53)
[2025-04-23] MEDS: ENOXAPARIN SOD 40 MG/0.4 ML SYRINGE SC SCH (08:53)
[2025-04-23] MEDS: METOPROLOL TARTRATE 25 MG TAB PO SCH (08:54)
[2025-04-23] MEDS ORDERED: FLUT250M2 INH (11:48)
[2025-04-23] MEDS ORDERED: FER325T PO (11:48)
[2025-04-23] MEDS ORDERED: CARV3.1240 PO (11:48)
[2025-04-23] MEDS ORDERED: MELA3TAB27 PO (11:48)
[2025-04-23] MEDS ORDERED: TAMS0.4C39 PO (11:48)
[2025-04-23] MEDS ORDERED: FLU01T PO (11:48)
[2025-04-23] MEDS ORDERED: OMEP20TA PO (11:48)
[2025-04-23] MEDS ORDERED: CLOP75TA70 PO (11:48)
[2025-04-23] MEDS ORDERED: ASPI81CH59 PO (11:48)
[2025-04-23] MEDS ORDERED: MULT-688 PO (11:48)
[2025-04-23] MEDS ORDERED: SACU1TAB PO (11:48)
[2025-04-23] MEDS: hydrALAZINE HCL 20 MG/ML VL IV PRN (20:44)
[2025-04-23] MEDS: NITROGLYCERIN 0.4 MG SL TAB SL PRN (22:03)
[2025-04-23] MEDS: ONDANSETRON HCL 4 MG/2 ML VIAL IV PRN (22:24)
[2025-04-23] MEDS: LABETALOL HCL 20 MG/4 ML VL IV ONE (22:33)
[2025-04-24] VITALS (8 sets, daily range): BP systolic 129–187; BP diastolic 72–99; PULSE 72–98; RESP 14–18; TEMP 97.5–98; O2SAT 94–99
[2025-04-24] MEDS: ACETAMINOPHEN 325 MG TAB PO PRN (00:31)
--- NOTE | 2025-04-24 01:54 | DVHSR ---
APPROVED REPORT EXAM: Two-dimensional and M-mode echocardiogram with Doppler and color Doppler. Blood Pressure: 140/57 mmHg INDICATION Chest Pain Surgery/Intervention Valve Replacement: Type: TAVR RISK FACTORS Height: 6'2", Weight: 166 DIMENSIONS LVDd4.6 (3.8-5.7cm)LA (2D)3.8 (1.9-4.0cm)Aortic Root (2.0-3.7cm) LVDs3.4 (2.5-4.0cm)LA (MM) (1.9-4.0cm)Aortic Cusp Exc (1.5-2.0cm) EF (%) 52.0 (55-70%)Rt. Atrium3.8 (1.9-4.0cm)Asc. Aorta cm IVSd1.5 (0.7-1.1cm)RV (D) (1.8-2.4cm) PWd4.9 (0.7-1.1cm) Mitral Valve MitralMitral Stenosis E wave0.76m/sMV Mean GR.mmHg A wave1.23m/sMV Peak GR.mmHg E/A ratio0.62D MVAcm2 DECEL [id number] 1/2 Timems Aortic Valve Aortic ValveAortic Stenosis V11.78m/Fadmuo Mean GR.8mmHg V21.80m/Fadumo Peak GR.14mmHg LVOT Diameter2.1 (1.8-2.4cm)Doppler AVA3.42cm2 AI P 1/2 Hvnc848.27ms Pulmonic Valve V20.76m/s Other Information Quality : Technically LimitedRhythm : Technically limited study due to body habitus and moving. 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
[2025-04-24 06:24] LABS: Basophils # (auto) 0 10 ^3/uL (0-0.2); Basophils % (auto) 0.4 % (0.0-2.0); Eosinophils # (auto) 0.2 10 ^3/uL (0-0.8); Eosinophils % (auto) 3.4 % (0.0-7.0); Hematocrit 29.4 % (41.0-53.0); Hemoglobin 9.5 g/dL (13.5-17.5); Lymphocytes # (auto) 0.8 10 ^3/uL (0.4-5.4); Lymphocytes % (auto) 15.5 % (10.0-50.0); Mean Corpuscular Hemoglobin 28.6 pg (28.0-32.0); Mean Corpuscular Hgb Conc. 32.3 g/dL (32.0-36.0); Mean Corpuscular Volume 88.7 fL (80.0-100.0); Monocytes # (auto) 0.5 10 ^3/uL (0-1.3); Monocytes % (auto) 9.2 % (0.0-12.0); Neutrophils # (auto) 3.8 10 ^3/uL (1.6-8.6); Neutrophils % (auto) 71.5 % (37.0-80.0); Platelet Count (auto) 172 10^3/uL (140-450); Red Blood Cells 3.32 10^6/uL (4.5-5.90); Red Cell Distribution Width 15.7 % (11.8-14.3); White Blood Cell 5.3 10^3/uL (4.4-10.8)
[2025-04-24 07:33] LABS: Sodium 141 mmol/L (136-145)
[2025-04-24 07:34] LABS: Anion Gap 14 (5-15); Calcium 8.9 mg/dL (8.7-10.4)
[2025-04-24 07:43] LABS: Blood Urea Nitrogen 9 mg/dL (9-23); Carbon Dioxide 16 mmol/L (20-31); Chloride 111 mmol/L (98-107); Glucose 153 mg/dL (74-106); Potassium 3.3 mmol/L (3.5-5.1)
--- NOTE | 2025-04-24 16:42 | DVHPN2 ---
Subjective I am assuming the care of the patient was from today onwards. Patient troponins are trending down cardiology consult is pending. Reviewed: Care Plan Changes from previous H/P or p: No Changes Eyes: No Pain, No Vision change, No Conjunctivae inflammation, No Eyelid inflammation, No Other, No Redness ENT: No Ear pain, No Ear discharge, No Nose pain, No Nose discharge, No Nose congestion, No Mouth pain, No Mouth swelling, No Throat pain, No Throat swelling, No Other Cardiovascular: Chest Pain; No Palpitations, No Orthopnea, No Paroxysmal Noc. Dyspnea, No Edema, No Lt Headedness, No Other Respiratory: No Cough, No Dry, No Shortness of breath, No SOB with excertion, No Wheezing, No Hemoptysis, No Pleuritic Pain, No Sputum, No Other Gastrointestinal: No Nausea, No Vomiting, No Abdominal Pain, No Diarrhea, No Constipation, No Melena, No Hematochezia, No Other Genitourinary: No Dysuria, No Frequency, No Incontinence, No Hematuria, No Retention, No Other Musculoskeletal: No other, No neck pain, No shoulder pain, No arm pain, No back pain, No hand pain, No leg pain, No foot pain Skin: No Rash, No Lesions, No Jaundice, No Bruising, No Other Objective Vitals Vital Signs Date Time Temp Pulse Resp B/P (MAP) Pulse Ox O2 Delivery O2 Flow Rate FiO2 04/24/25 13:00 97.5 78 14 148/77 (100) 98 97.5 04/24/25 08:00 Room Air* 0 21 Intake/Output Intake and Output 04/24/25 07:00 Intake Total 940 ml Balance 940 ml Intake Oral 940 ml # Voids 9 Exam HEENT pupils are reactive Neck is supple CV is S1-S2 regular rate and rhythm Respiratory diminished breath sound bases GI posterior bowel sound Extremity no 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 Medications Current Medications Medications Dose Ordered Sig/Zabrina Route Start Time Stop Time Status Last Admin Dose Admin Docusate Sodium 100 mg BIDPRN PRN PO 04/23/25 03:00 Acetaminophen 650 mg Q6HP PRN PO 04/23/25 03:00 04/24/25 00:31 650 MG Ondansetron HCl 4 mg Q4HP PRN IV 04/23/25 03:00 04/23/25 22:24 4 MG Morphine Sulfate 2 mg Q4HPRN PRN IV 04/23/25 03:00 Enoxaparin Sodium 40 mg DAILY SC 04/23/25 10:00 04/24/25 09:53 40 MG Nitroglycerin 0.4 mg Q5MINP PRN SL 04/23/25 03:00 04/23/25 22:12 0.4 MG Morphine Sulfate 2 mg Q30M PRN IV 04/23/25 03:00 Diagnostic Test (Pha) 1 strip IQ4HR 04/23/25 04:00 04/24/25 12:05 1 STRIP Insulin Human Regular IQ4HR SC 04/23/25 04:00 04/24/25 12:07 2 UNITS Dextrose 50 ml UD PRN IV 04/23/25 03:00 Aspirin 81 mg DAILY PO 04/23/25 10:00 04/24/25 09:53 81 MG Metoprolol Tartrate 25 mg DAILY PO 04/23/25 10:00 04/24/25 09:52 25 MG Hydralazine HCl 10 mg Q4HPRN PRN IV 04/23/25 20:45 04/24/25 01:11 10 MG Laboratory Results Laboratory Tests 04/24/25 06:06 Chemistry Test 04/24/25 06:06 Calcium Level 8.9 mg/dL (8.7-10.4) Assessment/Plan Assessment/Plan 64-year-old male presented to the hospital with a has been found to have 1. Chest pain with a NSTEMI 2. Diabetes mellitus type 2 3. Congestive heart failure not in exacerbation 4. Hypertension 5. COPD not in exacerbation 6. Hard of hearing -2D echo cardiology consulting continue has been statin beta-sabrina. Plan discussed with: Patient, Other My Orders Orders - SANDRA MCFARLANE MD Procedure Category Date Status Time * Cardiology Consult CONS 04/24/25 Transmitted 15:03 Date of Service: April 24, 2025 Billing Provider: SANDRA MCFARLANE MD Common Visit Codes: NOT BILLABLE SANDRA MCFARLANE MD April 24, 2025 16:42
[2025-04-25] VITALS (8 sets, daily range): BP systolic 125–189; BP diastolic 65–84; PULSE 76–102; RESP 16–20; TEMP 97.3–98.2; O2SAT 92–98
[2025-04-25] MEDS: MORPHINE SULFATE INJ 2 MG/ml SYRG IV PRN (07:36)
[2025-04-25 07:51] LABS: Basophils # (auto) 0 10 ^3/uL (0-0.2); Basophils % (auto) 0.4 % (0.0-2.0); Eosinophils # (auto) 0.2 10 ^3/uL (0-0.8); Eosinophils % (auto) 2.7 % (0.0-7.0); Hematocrit 30.5 % (41.0-53.0); Hemoglobin 9.7 g/dL (13.5-17.5); Lymphocytes # (auto) 0.8 10 ^3/uL (0.4-5.4); Mean Corpuscular Hemoglobin 28.8 pg (28.0-32.0); Mean Corpuscular Hgb Conc. 31.7 g/dL (32.0-36.0); Mean Corpuscular Volume 90.7 fL (80.0-100.0); Monocytes # (auto) 0.6 10 ^3/uL (0-1.3); Monocytes % (auto) 8.6 % (0.0-12.0); Neutrophils # (auto) 5.3 10 ^3/uL (1.6-8.6); Neutrophils % (auto) 77.3 % (37.0-80.0); Nucleated Red Blood Cells % 0.1 %; Platelet Count (auto) 182 10^3/uL (140-450); Red Blood Cells 3.36 10^6/uL (4.5-5.90); Red Cell Distribution Width 15.9 % (11.8-14.3); White Blood Cell 6.8 10^3/uL (4.4-10.8)
[2025-04-25 08:01] LABS: Anion Gap 11 (5-15); Carbon Dioxide 22 mmol/L (20-31); Potassium 3.5 mmol/L (3.5-5.1)
[2025-04-25 08:02] LABS: Calcium 9.5 mg/dL (8.7-10.4)
[2025-04-25 08:06] LABS: Chloride 112 mmol/L (98-107); Sodium 145 mmol/L (136-145)
[2025-04-25 08:07] LABS: BUN/Creatinine Ratio 14.9 (10.0-20.0); Blood Urea Nitrogen 14 mg/dL (9-23)
[2025-04-25 08:08] LABS: Glucose 137 mg/dL (74-106)
--- NOTE | 2025-04-25 13:24 | DVHINCON2 ---
Date Seen: April 25, 2025 Referring Physician MD Sharron Reason for Consultation Chest pain, elevated trops History of Present Illness This is an 84-year-old man who presented to the emergency room via EMS with a chief complaint of chest pain since 04/22/2025. The patient has a history of de mentia and is a poor historian. Information obtained from at bedside who reports intermittent substernal chest pain radiating to his left upper back prompting her to call 911. Upon EMS arrival he underwent a 12 lead electrocardiogram revealing a normal sinus rhythm and a BGL of 220 mg/dL. He underwent subsequent 12 lead electrocardiograms in the emergency room x 3 revealing a sinus rhythm with an associated right bundle branch block and suggestive of left ventricular hypertrophy. Troponin levels peaked at 223 ng/L. Follows up in the outpatient setting with Dr. Puentes who suggested a cardiac catheterization as outpatient. Of note, as inpatient the patient has complaint of chest pain and medicated with NTG SL with relief of symptoms. Significant medical history includes paroxysmal atrial fibrillation off DOAC given hx of anemia, status post TAVR at [facility] on 2021, hypertension, dyslipidemia, insulin-dependent diabetes mellitus, benign prostatic hyperplasia, anemia, and dementia. Past Medical History Past medical history reviewed. No other significant than mentioned above. Past Surgical History TAVR, 2021 Family History: Alzheimer's disease FATHER FH: breast cancer MOTHER Family History Family history reviewed. Social History Denies the use of illicit drugs, alcohol, or tobacco use. Allergies: Coded Allergies: Sulfa Antibiotics (Verified Allergy, Unknown, 12/01/23) Home Meds Reported Medications Melatonin (KP MELATONIN) 3 Mg Tab, 10 MG PO, TAB 04/23/25 Tamsulosin Hcl (Tamsulosin Hcl) 0.4 Mg Cap, 1 CAP PO DAILY, #30 CAP 5 Refills 04/23/25 Omeprazole (Gnp Omeprazole) 20 Mg Tab, 1 TAB PO DAILY, #30 TAB 3 Refills 04/23/25 Multiple Vitamins W/ Minerals (PRESERVISION AREDS 2) Areds 2 Cap, 1 2 PO, CAP 04/23/25 Sacubitril-Valsartan (Entresto 24-26 mg) 1 Tab Tab, 1 TAB PO, TAB 04/23/25 Fluticasone-Salmeterol (Advair Diskus 250/50) 1 Puff Ih, 1 PUFF INH BID, #1 INHALER 5 Refills 04/23/25 Fludrocortisone Acetate (Florinef) 0.1 Mg Tb, 1 TAB PO DAILY, #30 TAB 5 Refills 04/23/25 Ferrous Sulfate (FERROUS SULFATE) 325 Mg Tb, 1 TAB PO DAILY, #30 TAB 3 Refills 04/23/25 Clopidogrel Bisulfate (CLOPIDOGREL) 75 Mg Tab, 1 TAB PO DAILY, #30 TAB 5 Refills 04/23/25 Carvedilol (Carvedilol) 3.125 Mg Tab, 1 TAB PO BID, #60 TAB 3 Refills 04/23/25 Aspirin (Aspirin Low Dose) 81 Mg Chw, 81 MG PO, TAB.CHEW 04/23/25 Insulin Glargine (Lantus Solostar) 100 Unit/Ml Inj, 0-50 UNIT SC DAILY 12/01/23 Metformin Hydrochloride (Metformin Hcl) 500 Mg Tab, 1 TAB PO BID 12/01/23 Pravastatin Sodium (PRAVACHOL TABLET) 20 Mg Tb, 1 TAB PO DAILY, #30 TAB 5 Refills 12/01/23 Amlodipine Besylate (Amlodipine Besylate) 10 Mg Tab, 1 TAB PO DAILY, #30 TAB 5 Refills 12/01/23 Metoprolol Tartrate (Metoprolol Tartrate) 25 Mg Tab, 25 MG PO DAILY, TAB 12/01/23 Home Meds Home medications reviewed. Review of Systems Constitutional: No symptom reported Ears, Nose, & Throat: No symptom reported Eyes: No symptom reported Neurological: No symptoms reported Pulmonary/Respiratory: No symptom reported Cardiovascular: Chest pain Gastrointestinal: No symptom reported Genitourinary: No symptom reported Musculoskeletal: No symptom reported Skin: No symptom reported Psychiatric: No symptom reported Endocrine: No symptom reported Hemotologic/Lymphatic: No symptom reported Vital Signs Vital Signs Date Time Temp Pulse Resp B/P (MAP) Pulse Ox O2 Delivery O2 Flow Rate FiO2 04/25/25 09:01 92 189/83 04/25/25 08:06 20 04/25/25 08:00 97 Room Air* 0 21 04/25/25 05:00 98.1 98.1 Physical Exam General Appearance: Cooperative. Elder. Well nourished. In no acute distress Head Exam: Normal inspection Neck Exam: Normal inspection. Non-tender. Normal alignment Pulmonary/Respiratory: Chest non-tender. Clear bilateral breath sounds Cardiovascular/Chest: Regular rate and rhythm. S1, S2. Sinus rhythm with RBBB and LVH. No murmurs. No JVD. Peripheral Pulses: 2+ Radial (R). 2+ Radial (L). 2+ Pedal (R). 2+ Pedal (L) Abdominal Exam: Normal bowel sounds. Soft. Nontender. No hepatospenomegaly. No masses Ankle Exam: Negative ankle edema Lower extremities: Negative lower extremity edema Neuro/Mental Status: A&O x2. Alert but poor historian Thoughts/Psych: Unable to assess at this time Appearance: In no acute distress Skin Exam: Normal inspection. Normal color. Warm. Dry Labs/Diagnostic Data Labs Test 04/25/25 08:48 04/25/25 06:49 04/23/25 22:03 04/22/25 22:38 Range/Units POC Glucose 137 H 70-106 mg/dl White Blood Count 6.8 # 4.4-10.8 10^3/uL Red Blood Count 3.36 L 4.5-5.90 10^6/uL Hemoglobin 9.7 L 13.5-17.5 g/dL Hematocrit 30.5 L 41.0-53.0 % Mean Corpuscular Volume 90.7 80.0-100.0 fL Mean Corpuscular Hemoglobin 28.8 28.0-32.0 pg Mean Corpuscular Hemoglobin Concent 31.7 L 32.0-36.0 g/dL Red Cell Distribution Width 15.9 H 11.8-14.3 % Platelet Count 182 140-450 10^3/uL Mean Platelet Volume 9.1 6.9-10.8 fL Neutrophils (%) (Auto) 77.3 37.0-80.0 % Lymphocytes (%) (Auto) 11.0 10.0-50.0 % Monocytes (%) (Auto) 8.6 0.0-12.0 % Eosinophils (%) (Auto) 2.7 0.0-7.0 % Basophils (%) (Auto) 0.4 0.0-2.0 % Neutrophils # (Auto) 5.3 1.6-8.6 10 ^3/uL Lymphocytes # (Auto) 0.8 0.4-5.4 10 ^3/uL Monocytes # (Auto) 0.6 0-1.3 10 ^3/uL Eosinophils # (Auto) 0.2 0-0.8 10 ^3/uL Basophils # (Auto) 0 0-0.2 10 ^3/uL Nucleated Red Blood Cells 0.1 % Sodium Level 145 136-145 mmol/L Potassium Level 3.5 3.5-5.1 mmol/L Chloride Level 112 H 98-107 mmol/L Carbon Dioxide Level 22 20-31 mmol/L Anion Gap 11 5-15 Blood Urea Nitrogen 14 9-23 mg/dL Creatinine 0.94 0.700-1.30 mg/dL Glomerular Filtration Rate Calc 79 >90 mL/min BUN/Creatinine Ratio 14.9 10.0-20.0 Serum Glucose 137 H 74-106 mg/dL Calcium Level 9.5 8.7-10.4 mg/dL Troponin I High Sensitivity 48 </=54 ng/L Prothrombin Time 10.8 9.3-11.8 sec Prothrombin Time INR 1.02 0.9-1.15 Activated Partial Thromboplast Time 26.6 24.5-34.5 SEC Magnesium Level 2.0 1.6-2.6 mg/dL Total Bilirubin 0.6 0.2-1.0 mg/dL Aspartate Amino Transferase (AST) < 8 L 13-40 U/L Alanine Aminotransferase (ALT) < 9 7-40 U/L Alkaline Phosphatase 103 46-116 U/L B-Type Natriuretic Peptide 483.26 0-100 pg/mL Total Protein 7.4 5.7-8.2 g/dL Albumin 4.0 3.2-4.8 g/dL Assessment Non ST-elevation myocardial infarction Acute coronary syndrome rule out coronary artery disease Severe aortic valve stenosis status post TAVR (2021) Paroxysmal atrial fibrillation, now NSR (off NOAC) Aortic valve regurgitation, moderate degree Hypertension Dyslipidemia [id number] diabetes mellitus Dementia Plan/Recommendation (Dr. Dasilva) Scheduled for a cardiac catheterization and coronary angiogram with Dr. Puentes on 04/28/2025. Risks and benefits of the procedure were discussed with the at bedside who agreed to proceed with intervention. All questions answered. Thoracic echocardiogram revealing LVEF of 65% with moderate degree of aortic regurgitation. In the meantime, continue single antiplatelet therapy, lipid lowering agent, and initiate therapeutic Lovenox. Monitor H&H closely. Continue chest pain protocol. Monitor ECG changes and notify. Rest of plan per clinical course. Thank you for allowing us to participate in this patient's care. Please call if you have any questions or concerns. This medical document was created using an electronic medical record system with voice recognition software and computerized dictation system. Although this document has been carefully reviewed, there might still be some phonetic and typographical errors. Occasional wrong-word or ``sound-alike substitutions may have occurred due to the inherent limitations of voice recognition software. These areas are purely typographical due to imperfections of the software programs and do not reflect any compromise in the patient's medical care. Please read the chart carefully and recognize, using context, where these substitutions have occurred. Plan discussed with: Patient, Spouse, Other NYHA Physical activity limitations: NA Date of Service: April 25, 2025 Billing Provider: PRAVEEN BALL Cardiology Common Codes: [id number] INP/OBS CARE (High) PRAVEEN BALL April 25, 2025 13:24
--- NOTE | 2025-04-25 17:17 | DVHPN2 ---
Subjective Patient was seen by Cardiology currently scheduled for left heart catheterization. Reviewed: Care Plan Changes from previous H/P or p: No Changes Eyes: No Pain, No Vision change, No Conjunctivae inflammation, No Eyelid inflammation, No Other, No Redness ENT: No Ear pain, No Ear discharge, No Nose pain, No Nose discharge, No Nose congestion, No Mouth pain, No Mouth swelling, No Throat pain, No Throat swelling, No Other Cardiovascular: Chest Pain; No Palpitations, No Orthopnea, No Paroxysmal Noc. Dyspnea, No Edema, No Lt Headedness, No Other Respiratory: No Cough, No Dry, No Shortness of breath, No SOB with excertion, No Wheezing, No Hemoptysis, No Pleuritic Pain, No Sputum, No Other Gastrointestinal: No Nausea, No Vomiting, No Abdominal Pain, No Diarrhea, No Constipation, No Melena, No Hematochezia, No Other Genitourinary: No Dysuria, No Frequency, No Incontinence, No Hematuria, No Retention, No Other Musculoskeletal: No other, No neck pain, No shoulder pain, No arm pain, No back pain, No hand pain, No leg pain, No foot pain Skin: No Rash, No Lesions, No Jaundice, No Bruising, No Other Objective Vitals Vital Signs Date Time Temp Pulse Resp B/P (MAP) Pulse Ox O2 Delivery O2 Flow Rate FiO2 04/25/25 13:35 169/84 04/25/25 10:01 83 04/25/25 08:06 20 04/25/25 08:00 97 Room Air* 0 21 04/25/25 05:00 98.1 98.1 Intake/Output Intake and Output 04/25/25 07:00 Intake Total 1340 ml Balance 1340 ml Intake Oral 1340 ml # Voids 7 # Bowel Movements 1 Exam HEENT pupils are reactive Neck is supple CV is S1-S2 regular rate and rhythm Respiratory diminished breath sound bases GI posterior bowel sound Extremity no edema 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 Medications Current Medications Medications Dose Ordered Sig/Zabrina Route Start Time Stop Time Status Last Admin Dose Admin Docusate Sodium 100 mg BIDPRN PRN PO 04/23/25 03:00 Acetaminophen 650 mg Q6HP PRN PO 04/23/25 03:00 04/24/25 00:31 650 MG Ondansetron HCl 4 mg Q4HP PRN IV 04/23/25 03:00 04/23/25 22:24 4 MG Morphine Sulfate 2 mg Q4HPRN PRN IV 04/23/25 03:00 04/25/25 07:36 2 MG Nitroglycerin 0.4 mg Q5MINP PRN SL 04/23/25 03:00 04/25/25 07:41 0.4 MG Morphine Sulfate 2 mg Q30M PRN IV 04/23/25 03:00 Diagnostic Test (Pha) 1 strip IQ4HR 04/23/25 04:00 04/25/25 15:59 1 STRIP Insulin Human Regular IQ4HR SC 04/23/25 04:00 04/25/25 16:02 2 UNITS Dextrose 50 ml UD PRN IV 04/23/25 03:00 Aspirin 81 mg DAILY PO 04/23/25 10:00 04/25/25 09:01 81 MG Metoprolol Tartrate 25 mg DAILY PO 04/23/25 10:00 04/25/25 09:01 25 MG Hydralazine HCl 10 mg Q4HPRN PRN IV 04/23/25 20:45 04/25/25 13:35 10 MG Enoxaparin Sodium 80 mg Q12HR SC 04/25/25 22:00 Atorvastatin Calcium 40 mg HS PO 04/25/25 22:00 Amlodipine Besylate 10 mg DAILY PO 04/26/25 10:00 Fludrocortisone Acetate 0.1 mg DAILY PO 04/26/25 10:00 Clopidogrel Bisulfate 75 mg DAILY PO 04/26/25 10:00 Sacubitril/ Valsartan 1 tab BID PO 04/25/25 22:00 Laboratory Results Laboratory Tests 04/25/25 06:49 Chemistry Test 04/25/25 06:49 Calcium Level 9.5 mg/dL (8.7-10.4) Assessment/Plan Assessment/Plan 64-year-old male presented to the hospital with a has been found to have 1. Chest pain with a NSTEMI 2. Diabetes mellitus type 2 3. Congestive heart failure not in exacerbation 4. Hypertension 5. COPD not in exacerbation 6. Hard of hearing -2D echo cardiology consulting continue has been statin beta-sabrina. -left heart catheterization per Cardiology. Plan discussed with: Patient, Spouse My Orders Orders - SANDRA MCFARLANE MD Procedure Category Date Status Time Amlodipine Tablet PHA 04/26/25 In Process (Norvasc Tablet) 10:00 Fludrocortisone PHA 04/26/25 In Process Tablet (Florinef 10:00 Clopidogrel Bisulfate PHA 04/26/25 In Process (Plavix) 10:00 Sacubitril-Valsartan PHA 04/25/25 In Process (Entresto 24-26 Mg 22:00 Pt Request For Service PT 04/25/25 Logged 15:39 Date of Service: April 25, 2025 Billing Provider: SANDRA MCFARLANE MD Common Visit Codes: NOT BILLABLE SANDRA MCFARLANE MD April 25, 2025 17:17
[2025-04-25] MEDS: ATORVASTATIN 20 MG TAB PO SCH (20:29)
[2025-04-25] MEDS: SACUBITRIL-VALSARTAN 24mg/26mg TAB PO SCH (20:29)
[2025-04-25] MEDS: ENOXAPARIN SOD 80 MG/0.8ML SYRINGE SC SCH (20:29)
[2025-04-26 01:00] VITALS: BP 173/82; PULSE 98; RESP 16; TEMP 98; O2SAT 96
[2025-04-26 05:00] VITALS: BP 123/54; PULSE 113; RESP 18; TEMP 98.1; O2SAT 98
[2025-04-26 08:00] VITALS: PULSE 101; PULSE 107; RESP 17; O2SAT 98
[2025-04-26] MEDS: FLUDROCORTISONE ACETATE 0.1 MG TAB PO SCH (10:12)
[2025-04-26] MEDS: CLOPIDOGREL BISULFATE 75 MG TAB PO SCH (10:13)
[2025-04-26] MEDS: amLODIPine BESYLATE 5 MG TAB PO SCH (10:18)
[2025-04-26 10:27] LABS: Basophils # (auto) 0 10 ^3/uL (0-0.2); Basophils % (auto) 0.2 % (0.0-2.0); Eosinophils # (auto) 0.1 10 ^3/uL (0-0.8); Eosinophils % (auto) 1.2 % (0.0-7.0); Hematocrit 30.5 % (41.0-53.0); Hemoglobin 9.9 g/dL (13.5-17.5); Lymphocytes # (auto) 0.6 10 ^3/uL (0.4-5.4); Lymphocytes % (auto) 10.2 % (10.0-50.0); Mean Corpuscular Hemoglobin 28.7 pg (28.0-32.0); Mean Corpuscular Hgb Conc. 32.5 g/dL (32.0-36.0); Mean Corpuscular Volume 88.3 fL (80.0-100.0); Monocytes # (auto) 0.7 10 ^3/uL (0-1.3); Neutrophils # (auto) 4.2 10 ^3/uL (1.6-8.6); Neutrophils % (auto) 76.4 % (37.0-80.0); Nucleated Red Blood Cells % 0.1 %; Platelet Count (auto) 191 10^3/uL (140-450); Red Blood Cells 3.45 10^6/uL (4.5-5.90); Red Cell Distribution Width 16.5 % (11.8-14.3); White Blood Cell 5.4 10^3/uL (4.4-10.8)
--- NOTE | 2025-04-26 10:28 | DVHPN2 ---
Consult Progress Note Date Seen: April 26, 2025 Subjective Other Systems: Notified of chest pain last night Objective vital signs Vital Sign Date Time Temp Pulse Resp B/P (MAP) Pulse Ox O2 Delivery O2 Flow Rate FiO2 04/26/25 08:00 101 17 98 Room Air* 0 21 04/26/25 05:00 98.1 123/54 (77) 98.1 Total Intake and Output 04/25/25 04/25/25 04/26/25 15:00 23:00 07:00 Intake Total 450 ml 200 ml Balance 450 ml 200 ml medications Current Medications Medications Dose Ordered Sig/Zabrina Route Start Time Stop Time Status Last Admin Dose Admin Docusate Sodium 100 mg BIDPRN PRN PO 04/23/25 03:00 Acetaminophen 650 mg Q6HP PRN PO 04/23/25 03:00 04/24/25 00:31 650 MG Ondansetron HCl 4 mg Q4HP PRN IV 04/23/25 03:00 04/25/25 23:30 4 MG Morphine Sulfate 2 mg Q4HPRN PRN IV 04/23/25 03:00 04/25/25 23:29 2 MG Nitroglycerin 0.4 mg Q5MINP PRN SL 04/23/25 03:00 04/25/25 07:41 0.4 MG Morphine Sulfate 2 mg Q30M PRN IV 04/23/25 03:00 Diagnostic Test (Pha) 1 strip IQ4HR 04/23/25 04:00 04/26/25 08:21 1 STRIP Insulin Human Regular IQ4HR SC 04/23/25 04:00 04/26/25 08:27 2 UNITS Dextrose 50 ml UD PRN IV 04/23/25 03:00 Aspirin 81 mg DAILY PO 04/23/25 10:00 04/26/25 10:14 81 MG Metoprolol Tartrate 25 mg DAILY PO 04/23/25 10:00 04/25/25 09:01 25 MG Hydralazine HCl 10 mg Q4HPRN PRN IV 04/23/25 20:45 04/26/25 01:23 10 MG Enoxaparin Sodium 80 mg Q12HR SC 04/25/25 22:00 04/26/25 10:12 80 MG Atorvastatin Calcium 40 mg HS PO 04/25/25 22:00 5/25/25 20:29 40 MG Amlodipine Besylate 10 mg DAILY PO 04/26/25 10:00 Fludrocortisone Acetate 0.1 mg DAILY PO 04/26/25 10:00 04/26/25 10:12 0.1 MG Clopidogrel Bisulfate 75 mg DAILY PO 04/26/25 10:00 04/26/25 10:13 75 MG Sacubitril/ Valsartan 1 tab BID PO 04/25/25 22:00 04/26/25 10:12 1 TAB Examination: LUNGS:Normal, CVS:Normal (NSR), NEURO:Abnormal (Dementia, non- verbal) laboratory and microbiology Test 04/26/25 10:00 Range/Units Serum Glucose Pending Problem List/Assessment/Plan Problem List/Assessment/Plan Non ST-elevation myocardial infarction Acute coronary syndrome rule out coronary artery disease Severe aortic valve stenosis status post TAVR (2021) Paroxysmal atrial fibrillation, now NSR (off NOAC) Aortic valve regurgitation, moderate degree Hypertension Dyslipidemia [id number] diabetes mellitus Dementia Plan/Recommendation (Dr. Dasilva) Scheduled for a cardiac catheterization and coronary angiogram with Dr. Puentes on 04/28/2025. Transthoracic echocardiogram revealing LVEF of 65% with moderate degree of aortic regurgitation. In the meantime, continue single antiplatelet therapy, lipid lowering agent, and therapeutic Lovenox. Monitor H&H closely. Continue chest pain protocol. Monitor ECG changes and notify. Rest of plan per clinical course. Thank you for allowing us to participate in this patient's care. Please call if you have any questions or concerns. This medical document was created using an electronic medical record system with voice recognition software and computerized dictation system. Although this document has been carefully reviewed, there might still be some phonetic and typographical errors. Occasional wrong-word or ``sound-alike substitutions may have occurred due to the inherent limitations of voice recognition software. These areas are purely typographical due to imperfections of the software programs and do not reflect any compromise in the patient's medical care. Please read the chart carefully and recognize, using context, where these substitutions have occurred. Plan discussed with: Patient, Other Dietary Evaluation Review Recommendations by RD: Protein Supplementation Comments: 1) Initiate Glucerna qd. Encourage optimal PO intake 2) Collect HbA1C 3) Follow-up with cardiology and pulmonology 4) Continue to monitor I&O, labs, and skin integrity Expected Outcomes/Goals: 1) appetite and labs to improve 2) f/u in 3-5 days Date of Service: April 26, 2025 Billing Provider: PRAVEEN BALL Cardiology Common Codes: [id number] HOSP CARE(High PRAVEEN BALL April 26, 2025 10:28
[2025-04-26 10:47] LABS: Alanine Aminotransferase 11 U/L (7-40); Albumin 4.2 g/dL (3.2-4.8); Alkaline Phosphatase 114 U/L (46-116); Anion Gap 10 (5-15); Aspartate Aminotransferase 17 U/L (13-40); BUN/Creatinine Ratio 14.3 (10.0-20.0); Bilirubin, Total 0.9 mg/dL (0.2-1.0); Blood Urea Nitrogen 14 mg/dL (9-23); Calcium 9.2 mg/dL (8.7-10.4); Carbon Dioxide 22 mmol/L (20-31); Sodium 144 mmol/L (136-145); Total Protein 7.8 g/dL (5.7-8.2)
[2025-04-26 10:52] LABS: Chloride 112 mmol/L (98-107); Glucose 165 mg/dL (74-106)
[2025-04-26 11:29] LABS: Triglycerides 140 mg/dL (< 150)
[2025-04-26 11:30] LABS: LDL Cholesterol 70 mg/dL (< 100)
[2025-04-26 11:31] LABS: Cholesterol 111 mg/dL (< 200)
[2025-04-26 11:33] LABS: HDL Cholesterol 26 mg/dL (40-59)
--- NOTE | 2025-04-26 15:46 | DVHPN2 ---
Subjective Patient was seen by Cardiology currently scheduled for left heart catheterization. Reviewed: Care Plan Changes from previous H/P or p: No Changes Eyes: No Pain, No Vision change, No Conjunctivae inflammation, No Eyelid inflammation, No Other, No Redness ENT: No Ear pain, No Ear discharge, No Nose pain, No Nose discharge, No Nose congestion, No Mouth pain, No Mouth swelling, No Throat pain, No Throat swelling, No Other Cardiovascular: Chest Pain; No Palpitations, No Orthopnea, No Paroxysmal Noc. Dyspnea, No Edema, No Lt Headedness, No Other Respiratory: No Cough, No Dry, No Shortness of breath, No SOB with excertion, No Wheezing, No Hemoptysis, No Pleuritic Pain, No Sputum, No Other Gastrointestinal: No Nausea, No Vomiting, No Abdominal Pain, No Diarrhea, No Constipation, No Melena, No Hematochezia, No Other Genitourinary: No Dysuria, No Frequency, No Incontinence, No Hematuria, No Retention, No Other Musculoskeletal: No other, No neck pain, No shoulder pain, No arm pain, No back pain, No hand pain, No leg pain, No foot pain Skin: No Rash, No Lesions, No Jaundice, No Bruising, No Other Objective Vitals Vital Signs Date Time Temp Pulse Resp B/P (MAP) Pulse Ox O2 Delivery O2 Flow Rate FiO2 04/26/25 11:24 92 126/48 04/26/25 08:00 17 98 Room Air* 0 21 04/26/25 05:00 98.1 98.1 Intake/Output Intake and Output 04/26/25 07:00 Intake Total 650 ml Balance 650 ml Intake Oral 650 ml # Voids 8 Exam HEENT pupils are reactive Neck is supple CV is S1-S2 regular rate and rhythm Respiratory diminished breath sound bases GI posterior bowel sound Extremity no edema 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 Medications Current Medications Medications Dose Ordered Sig/Zabrina Route Start Time Stop Time Status Last Admin Dose Admin Docusate Sodium 100 mg BIDPRN PRN PO 04/23/25 03:00 Acetaminophen 650 mg Q6HP PRN PO 04/23/25 03:00 04/24/25 00:31 650 MG Ondansetron HCl 4 mg Q4HP PRN IV 04/23/25 03:00 04/25/25 23:30 4 MG Morphine Sulfate 2 mg Q4HPRN PRN IV 04/23/25 03:00 04/25/25 23:29 2 MG Nitroglycerin 0.4 mg Q5MINP PRN SL 04/23/25 03:00 04/25/25 07:41 0.4 MG Morphine Sulfate 2 mg Q30M PRN IV 04/23/25 03:00 Diagnostic Test (Pha) 1 strip IQ4HR 04/23/25 04:00 04/26/25 08:21 1 STRIP Insulin Human Regular IQ4HR SC 04/23/25 04:00 04/26/25 08:27 2 UNITS Dextrose 50 ml UD PRN IV 04/23/25 03:00 Aspirin 81 mg DAILY PO 04/23/25 10:00 04/26/25 10:14 81 MG Metoprolol Tartrate 25 mg DAILY PO 04/23/25 10:00 04/26/25 10:24 25 MG Hydralazine HCl 10 mg Q4HPRN PRN IV 04/23/25 20:45 04/26/25 01:23 10 MG Enoxaparin Sodium 80 mg Q12HR SC 04/25/25 22:00 04/26/25 10:12 80 MG Atorvastatin Calcium 40 mg HS PO 04/25/25 22:00 04/25/25 20:29 40 MG Amlodipine Besylate 10 mg DAILY PO 04/26/25 10:00 04/26/25 10:18 10 MG Clopidogrel Bisulfate 75 mg DAILY PO 04/26/25 10:00 04/26/25 10:13 75 MG Sacubitril/ Valsartan 1 tab BID PO 04/25/25 22:00 04/26/25 10:12 1 TAB Laboratory Results Laboratory Tests 04/26/25 10:00 Chemistry Test 04/26/25 10:00 Albumin 4.2 g/dL (3.2-4.8) Calcium Level 9.2 mg/dL (8.7-10.4) Total Protein 7.8 g/dL (5.7-8.2) Lipid panel Test 04/26/25 10:00 Cholesterol Level 111 mg/dL (< 200) HDL Cholesterol 26 mg/dL (40-59) L Triglycerides Level 140 mg/dL (< 150) LFT Test 04/26/25 10:00 Alanine Aminotransferase (ALT) 11 U/L (7-40) Alkaline Phosphatase 114 U/L (46-116) Aspartate Amino Transferase (AST) 17 U/L (13-40) Total Bilirubin 0.9 mg/dL (0.2-1.0) HgA1c, TSH Test 04/26/25 10:00 Hemoglobin A1c 6.4 % A1C (<5.7) H Thyroid Stimulating Hormone (TSH) 1.17 uIU/mL (0.55-4.78) Assessment/Plan Assessment/Plan 64-year-old male presented to the hospital with a has been found to have 1. Chest pain with a NSTEMI 2. Diabetes mellitus type 2 3. Congestive heart failure not in exacerbation 4. Hypertension 5. COPD not in exacerbation 6. Hard of hearing -2D echo cardiology consulting continue has been statin beta-sabrina. -left heart catheterization per Cardiology. Plan discussed with: Spouse My Orders Orders - SANDRA MCFARLANE MD Procedure Category Date Status Time Notify Provider NOTICE 04/26/25 Transmitted Malnutrition 06:37 Nutritional NOURISH 04/26/25 Transmitted Supplements 06:37 Dietary NOTICE 04/26/25 Transmitted Recommendations 06:37 Date of Service: April 26, 2025 Billing Provider: SANDRA MCFARLANE MD Common Visit Codes: NOT BILLABLE SANDRA MCFARLANE MD April 26, 2025 15:46
[2025-04-26 20:00] VITALS: PULSE 82
[2025-04-27 08:00] VITALS: PULSE 89; O2SAT 96
[2025-04-27 09:00] VITALS: BP 119/56; PULSE 83; RESP 17; TEMP 98.1; O2SAT 96
[2025-04-27 10:21] LABS: Basophils # (auto) 0 10 ^3/uL (0-0.2); Basophils % (auto) 0.6 % (0.0-2.0); Eosinophils # (auto) 0.2 10 ^3/uL (0-0.8); Eosinophils % (auto) 4.7 % (0.0-7.0); Hematocrit 28.7 % (41.0-53.0); Hemoglobin 9.2 g/dL (13.5-17.5); Lymphocytes # (auto) 0.9 10 ^3/uL (0.4-5.4); Lymphocytes % (auto) 16.2 % (10.0-50.0); Mean Corpuscular Hemoglobin 28.4 pg (28.0-32.0); Mean Corpuscular Hgb Conc. 32.1 g/dL (32.0-36.0); Mean Corpuscular Volume 88.5 fL (80.0-100.0); Monocytes # (auto) 0.7 10 ^3/uL (0-1.3); Monocytes % (auto) 12.3 % (0.0-12.0); Neutrophils # (auto) 3.5 10 ^3/uL (1.6-8.6); Neutrophils % (auto) 66.2 % (37.0-80.0); Nucleated Red Blood Cells % 0.2 %; Platelet Count (auto) 175 10^3/uL (140-450); Red Blood Cells 3.24 10^6/uL (4.5-5.90); Red Cell Distribution Width 16.2 % (11.8-14.3); White Blood Cell 5.3 10^3/uL (4.4-10.8)
[2025-04-27 10:32] LABS: Alanine Aminotransferase 10 U/L (7-40); Albumin 3.9 g/dL (3.2-4.8); Alkaline Phosphatase 105 U/L (46-116); Anion Gap 9 (5-15); BUN/Creatinine Ratio 16.7 (10.0-20.0); Blood Urea Nitrogen 15 mg/dL (9-23); Calcium 8.8 mg/dL (8.7-10.4); Carbon Dioxide 23 mmol/L (20-31); Sodium 145 mmol/L (136-145); Total Protein 7.2 g/dL (5.7-8.2)
[2025-04-27 10:33] LABS: Bilirubin, Total 0.7 mg/dL (0.2-1.0)
[2025-04-27 10:34] LABS: Aspartate Aminotransferase 12 U/L (13-40); Chloride 113 mmol/L (98-107); Glucose 138 mg/dL (74-106)
--- NOTE | 2025-04-27 10:58 | DVHPN2 ---
Consult Progress Note Date Seen: April 27, 2025 Subjective Review of Systems: CVS:Normal, RESPIRATORY:Normal, NEURO:Normal Objective vital signs Vital Sign Date Time Temp Pulse Resp B/P (MAP) Pulse Ox O2 Delivery O2 Flow Rate FiO2 04/26/25 20:00 Room Air* 0 21 04/26/25 20:00 82 04/26/25 11:24 126/48 04/26/25 08:00 17 98 04/26/25 05:00 98.1 98.1 Total Intake and Output 04/26/25 04/26/25 04/27/25 15:00 23:00 07:00 Intake Total 200 ml Balance 200 ml medications Current Medications Medications Dose Ordered Sig/Zabrina Route Start Time Stop Time Status Last Admin Dose Admin Docusate Sodium 100 mg BIDPRN PRN PO 04/23/25 03:00 Acetaminophen 650 mg Q6HP PRN PO 04/23/25 03:00 04/24/25 00:31 650 MG Ondansetron HCl 4 mg Q4HP PRN IV 04/23/25 03:00 04/25/25 23:30 4 MG Morphine Sulfate 2 mg Q4HPRN PRN IV 04/23/25 03:00 04/25/25 23:29 2 MG Nitroglycerin 0.4 mg Q5MINP PRN SL 04/23/25 03:00 04/25/25 07:41 0.4 MG Morphine Sulfate 2 mg Q30M PRN IV 04/23/25 03:00 Diagnostic Test (Pha) 1 strip IQ4HR 04/23/25 04:00 04/27/25 08:00 1 STRIP Insulin Human Regular IQ4HR SC 04/23/25 04:00 04/27/25 04:32 2 UNITS Dextrose 50 ml UD PRN IV 04/23/25 03:00 Aspirin 81 mg DAILY PO 04/23/25 10:00 04/26/25 10:14 81 MG Metoprolol Tartrate 25 mg DAILY PO 04/23/25 10:00 04/26/25 10:24 25 MG Hydralazine HCl 10 mg Q4HPRN PRN IV 04/23/25 20:45 04/26/25 01:23 10 MG Enoxaparin Sodium 80 mg Q12HR SC 04/25/25 22:00 04/26/25 20:31 80 MG Atorvastatin Calcium 40 mg HS PO 04/25/25 22:00 04/26/25 20:30 40 MG Amlodipine Besylate 10 mg DAILY PO 04/26/25 10:00 04/26/25 10:18 10 MG Clopidogrel Bisulfate 75 mg DAILY PO 04/26/25 10:00 04/26/25 10:13 75 MG Sacubitril/ Valsartan 1 tab BID PO 04/25/25 22:00 04/26/25 20:30 1 TAB Examination: GENERAL:Normal, LUNGS:Normal, CVS:Normal, NEURO:Abnormal (Dementia) laboratory and microbiology Laboratory Tests 04/27/25 09:53 Test 04/27/25 09:53 Range/Units Serum Glucose 138 H 74-106 mg/dL Problem List/Assessment/Plan Problem List/Assessment/Plan Non ST-elevation myocardial infarction Acute coronary syndrome rule out coronary artery disease Severe aortic valve stenosis status post TAVR (2021) Paroxysmal atrial fibrillation, now NSR (off NOAC) Aortic valve regurgitation, moderate degree Persistent hypokalemia Hypertension Dyslipidemia Igp-qyzuofj-ddlvmbmff diabetes mellitus Dementia Plan/Recommendation (Dr. Puentes) Scheduled for a cardiac catheterization and coronary angiogram with Dr. Puentes on 04/28/2025. Transthoracic echocardiogram revealing LVEF of 65% with moderate degree of aortic regurgitation. In the meantime, continue single-antiplatelet therapy, lipid lowering agent, and therapeutic Lovenox (hold day of procedure). Monitor H&H closely. Replete electrolytes as necessary. Continue chest pain protocol. Monitor ECG changes and notify. Rest of plan per clinical course. Thank you for allowing us to participate in this patient's care. Please call if you have any questions or concerns. This medical document was created using an electronic medical record system with voice recognition software and computerized dictation system. Although this document has been carefully reviewed, there might still be some phonetic and typographical errors. Occasional wrong-word or ``sound-alike substitutions may have occurred due to the inherent limitations of voice recognition software. These areas are purely typographical due to imperfections of the software programs and do not reflect any compromise in the patient's medical care. Please read the chart carefully and recognize, using context, where these substitutions have occurred. Plan discussed with: Patient, Spouse, Other Dietary Evaluation Review Recommendations by RD: Protein Supplementation Comments: 1) Initiate Glucerna qd. Encourage optimal PO intake 2) Collect HbA1C 3) Follow-up with cardiology and pulmonology 4) Continue to monitor I&O, labs, and skin integrity Expected Outcomes/Goals: 1) appetite and labs to improve 2) f/u in 3-5 days Date of Service: April 27, 2025 Billing Provider: PRAVEEN BALL Cardiology Common Codes: [id number] [facility] C[facility](High PRAVEEN BALL April 27, 2025 10:58
[2025-04-27] MEDS: POTASSIUM CHL 20 Meq TABLET PO ONE (12:15)
[2025-04-27 13:00] VITALS: BP 157/63; PULSE 84; RESP 16; TEMP 98.1; O2SAT 96
--- NOTE | 2025-04-27 13:41 | ECG ---
[facility] Test Date: 2025-04-23 Test Time: 22:17:35 Pat Name: CONNOR ALBERTO Department: Respiratoy Room: 0212T Gender: M Office Mover: NAIN : 1940 Requested By: MACRINA DONALD Order Number: [id number] Reading MD: Doni Puentes Measurements Intervals [place] Rate: 104 P: -83 SC: 161 QRS: -77 QRSD: 151 T: 92 QT: 402 QTc: 529 Interpretive Statements Ectopic atrial tachycardia, unifocal Right bundle branch block LVH with IVCD and secondary repol abnrm Prolonged QT interval Electronically Signed On 05-02-2025 22:40:46 PDT by Doin Puentes Please click the below link to view image of tracing.
--- NOTE | 2025-04-27 15:06 | DVHPN2 ---
Subjective Patient was seen by Cardiology currently scheduled for left heart catheterization. Reviewed: Care Plan Changes from previous H/P or p: No Changes Eyes: No Pain, No Vision change, No Conjunctivae inflammation, No Eyelid inflammation, No Other, No Redness ENT: No Ear pain, No Ear discharge, No Nose pain, No Nose discharge, No Nose congestion, No Mouth pain, No Mouth swelling, No Throat pain, No Throat swelling, No Other Cardiovascular: Chest Pain; No Palpitations, No Orthopnea, No Paroxysmal Noc. Dyspnea, No Edema, No Lt Headedness, No Other Respiratory: No Cough, No Dry, No Shortness of breath, No SOB with excertion, No Wheezing, No Hemoptysis, No Pleuritic Pain, No Sputum, No Other Gastrointestinal: No Nausea, No Vomiting, No Abdominal Pain, No Diarrhea, No Constipation, No Melena, No Hematochezia, No Other Genitourinary: No Dysuria, No Frequency, No Incontinence, No Hematuria, No Retention, No Other Musculoskeletal: No other, No neck pain, No shoulder pain, No arm pain, No back pain, No hand pain, No leg pain, No foot pain Skin: No Rash, No Lesions, No Jaundice, No Bruising, No Other Objective Vitals Vital Signs Date Time Temp Pulse Resp B/P (MAP) Pulse Ox O2 Delivery O2 Flow Rate FiO2 04/27/25 11:50 119/56 04/27/25 11:50 83 04/27/25 08:00 96 Room Air* 0 21 04/26/25 08:00 17 04/26/25 05:00 98.1 98.1 Intake/Output Intake and Output 04/27/25 07:00 Intake Total 200 ml Balance 200 ml Intake Oral 200 ml # Voids 3 Exam HEENT pupils are reactive Neck is supple CV is S1-S2 regular rate and rhythm Respiratory diminished breath sound bases GI posterior bowel sound 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 Medications Current Medications Medications Dose Ordered Sig/Zabrina Route Start Time Stop Time Status Last Admin Dose Admin Docusate Sodium 100 mg BIDPRN PRN PO 04/23/25 03:00 Acetaminophen 650 mg Q6HP PRN PO 04/23/25 03:00 04/24/25 00:31 650 MG Ondansetron HCl 4 mg Q4HP PRN IV 04/23/25 03:00 04/25/25 23:30 4 MG Morphine Sulfate 2 mg Q4HPRN PRN IV 04/23/25 03:00 04/25/25 23:29 2 MG Nitroglycerin 0.4 mg Q5MINP PRN SL 04/23/25 03:00 04/25/25 07:41 0.4 MG Morphine Sulfate 2 mg Q30M PRN IV 04/23/25 03:00 Diagnostic Test (Pha) 1 strip IQ4HR 04/23/25 04:00 04/27/25 12:16 1 STRIP Insulin Human Regular IQ4HR SC 04/23/25 04:00 04/27/25 12:16 2 UNITS Dextrose 50 ml UD PRN IV 04/23/25 03:00 Aspirin 81 mg DAILY PO 04/23/25 10:00 04/27/25 11:49 81 MG Metoprolol Tartrate 25 mg DAILY PO 04/23/25 10:00 04/27/25 11:50 25 MG Hydralazine HCl 10 mg Q4HPRN PRN IV 04/23/25 20:45 04/26/25 01:23 10 MG Enoxaparin Sodium 80 mg Q12HR SC 04/25/25 22:00 04/27/25 11:50 80 MG Atorvastatin Calcium 40 mg HS PO 04/25/25 22:00 04/26/25 20:30 40 MG Amlodipine Besylate 10 mg DAILY PO 04/26/25 10:00 04/27/25 11:50 10 MG Clopidogrel Bisulfate 75 mg DAILY PO 04/26/25 10:00 04/27/25 11:49 75 MG Sacubitril/ Valsartan 1 tab BID PO 04/25/25 22:00 04/27/25 11:49 1 TAB Laboratory Results Laboratory Tests 04/27/25 09:53 Chemistry Test 04/27/25 09:53 Albumin 3.9 g/dL (3.2-4.8) Calcium Level 8.8 mg/dL (8.7-10.4) Total Protein 7.2 g/dL (5.7-8.2) LFT Test 04/27/25 09:53 Alanine Aminotransferase (ALT) 10 U/L (7-40) Alkaline Phosphatase 105 U/L (46-116) Aspartate Amino Transferase (AST) 12 U/L (13-40) L Total Bilirubin 0.7 mg/dL (0.2-1.0) Assessment/Plan Assessment/Plan 64-year-old male presented to the hospital with a has been found to have 1. Chest pain with a NSTEMI 2. Diabetes mellitus type 2 3. Congestive heart failure not in exacerbation 4. Hypertension 5. COPD not in exacerbation 6. Hard of hearing -2D echo cardiology consulting continue has been statin beta-sabrina. -left heart catheterization per Cardiology. Plan discussed with: Other Date of Service: April 27, 2025 Billing Provider: SANDRA MCFARLANE MD Common Visit Codes: NOT BILLABLE SANDRA MCFARLANE MD April 27, 2025 15:06
[2025-04-27 17:00] VITALS: BP 149/61; PULSE 74; RESP 16; TEMP 97.8; O2SAT 94
[2025-04-27 20:00] VITALS: PULSE 75; PULSE 82; RESP 16; O2SAT 98
[2025-04-27 21:00] VITALS: BP 146/64; PULSE 82; RESP 16; TEMP 97.9; O2SAT 98
[2025-04-28] VITALS (13 sets, daily range): BP systolic 129–166; BP diastolic 57–88; PULSE 74–100; RESP 16–20; TEMP 97–98.2; O2SAT 94–100
[2025-04-28 07:53] LABS: Alanine Aminotransferase 12 U/L (7-40); Albumin 3.7 g/dL (3.2-4.8); Anion Gap 9 (5-15); BUN/Creatinine Ratio 13.4 (10.0-20.0); Basophils # (auto) 0 10 ^3/uL (0-0.2); Basophils % (auto) 0.5 % (0.0-2.0); Blood Urea Nitrogen 11 mg/dL (9-23); Calcium 8.8 mg/dL (8.7-10.4); Carbon Dioxide 22 mmol/L (20-31); Eosinophils # (auto) 0.2 10 ^3/uL (0-0.8); Eosinophils % (auto) 4.6 % (0.0-7.0); Hematocrit 27.6 % (41.0-53.0); Hemoglobin 8.8 g/dL (13.5-17.5); Lymphocytes % (auto) 19.5 % (10.0-50.0); Mean Corpuscular Hemoglobin 28.3 pg (28.0-32.0); Mean Corpuscular Volume 88.6 fL (80.0-100.0); Monocytes # (auto) 0.6 10 ^3/uL (0-1.3); Monocytes % (auto) 11.9 % (0.0-12.0); Neutrophils # (auto) 3.3 10 ^3/uL (1.6-8.6); Neutrophils % (auto) 63.5 % (37.0-80.0); Nucleated Red Blood Cells % 0.1 %; Platelet Count (auto) 156 10^3/uL (140-450); Red Blood Cells 3.12 10^6/uL (4.5-5.90); Red Cell Distribution Width 16.5 % (11.8-14.3); Total Protein 6.8 g/dL (5.7-8.2); White Blood Cell 5.2 10^3/uL (4.4-10.8)
[2025-04-28 07:54] LABS: Alkaline Phosphatase 117 U/L (46-116); Aspartate Aminotransferase 13 U/L (13-40); Bilirubin, Total 0.7 mg/dL (0.2-1.0); Chloride 115 mmol/L (98-107); Glucose 133 mg/dL (74-106); Potassium 3.4 mmol/L (3.5-5.1); Sodium 146 mmol/L (136-145)
[2025-04-28 07:58] LABS: INR 1.03 (0.9-1.15); Partial Thromboplastin Time 32.2 SEC (24.5-34.5); Prothrombin Time 10.9 sec (9.3-11.8)
[2025-04-28] MEDS: ENOXAPARIN SOD 80 MG/0.8ML SYRINGE SC SCH (10:00)
[2025-04-28] MEDS: VERAPAMIL 2.5MG/ML INJ 2ML VIAL IV ONE (12:58)
[2025-04-28] MEDS: ANGIOMAX 250 MG VIAL IV ONE (12:58)
[2025-04-28] MEDS: HEPARIN SODIUM (PORCINE) 5000 UNITS/ML 1ML VIAL ONE (12:58)
[2025-04-28] MEDS: IODIXANOL 320MG/ML 100ML BTL IV ONE (12:58)
[2025-04-28] MEDS: MIDAZOLAM HCL 2MG/2ML 2ml VIAL (1mg/ml) ONE ×2 (12:58→14:28)
[2025-04-28] MEDS: fentaNYL CITRATE 100 MCG/2 ML VL ONE (12:58)
[2025-04-28] MEDS: LIDOCAINE 2%HCL (LOCAL ANESTH.) INJ 20ML MDV ONE (12:59)
[2025-04-28] MEDS: ATROPINE SULF 1 MG/10ml SYR ONE (13:46)
[2025-04-28] MEDS: hydrALAZINE HCL 20 MG/ML VL ONE (14:02)
[2025-04-28] MEDS: ASPirin 81 mg TAB ONE (14:42)
[2025-04-28] MEDS: CLOPIDOGREL BISULFATE 75 MG TAB ONE (14:42)
[2025-04-28] MEDS: SODIUM CHLORIDE 0.9% 1,000 ML IV ONE (14:45)
--- NOTE | 2025-04-28 14:50 | DVHPN2 ---
Consult Progress Note Date Seen: April 28, 2025 Subjective Review of Systems: CVS:Normal, RESPIRATORY:Normal, NEURO:Normal Objective vital signs Vital Sign Date Time Temp Pulse Resp B/P (MAP) Pulse Ox O2 Delivery O2 Flow Rate FiO2 04/28/25 09:00 97.7 76 18 134/68 (90) 100 97.7 04/28/25 08:00 Room Air* 0 21 Total Intake and Output 04/27/25 04/27/25 04/28/25 15:00 23:00 07:00 Intake Total 400 ml 800 ml Balance 400 ml 800 ml medications Current Medications Medications Dose Ordered Sig/Zabrina Route Start Time Stop Time Status Last Admin Dose Admin Docusate Sodium 100 mg BIDPRN PRN PO 04/23/25 03:00 Acetaminophen 650 mg Q6HP PRN PO 04/23/25 03:00 04/24/25 00:31 650 MG Ondansetron HCl 4 mg Q4HP PRN IV 04/23/25 03:00 04/25/25 23:30 4 MG Morphine Sulfate 2 mg Q4HPRN PRN IV 04/23/25 03:00 04/25/25 23:29 2 MG Nitroglycerin 0.4 mg Q5MINP PRN SL 04/23/25 03:00 04/25/25 07:41 0.4 MG Morphine Sulfate 2 mg Q30M PRN IV 04/23/25 03:00 Diagnostic Test (Pha) 1 strip IQ4HR 04/23/25 04:00 04/28/25 08:00 1 STRIP Insulin Human Regular IQ4HR SC 04/23/25 04:00 04/28/25 08:05 2 UNITS Dextrose 50 ml UD PRN IV 04/23/25 03:00 Aspirin 81 mg DAILY PO 04/23/25 10:00 04/27/25 11:49 81 MG Metoprolol Tartrate 25 mg DAILY PO 04/23/25 10:00 04/27/25 11:50 25 MG Hydralazine HCl 10 mg Q4HPRN PRN IV 04/23/25 20:45 04/26/25 01:23 10 MG Atorvastatin Calcium 40 mg HS PO 04/25/25 22:00 04/27/25 20:59 40 MG Amlodipine Besylate 10 mg DAILY PO 04/26/25 10:00 04/27/25 11:50 10 MG Clopidogrel Bisulfate 75 mg DAILY PO 04/26/25 10:00 04/27/25 11:49 75 MG Sacubitril/ Valsartan 1 tab BID PO 04/25/25 22:00 04/27/25 20:59 1 TAB Enoxaparin Sodium 70 mg Q12HR SC 04/28/25 10:00 Examination: LUNGS:Normal, CVS:Normal, NEURO:Abnormal (Dementia) laboratory and microbiology Laboratory Tests 04/28/25 05:54 Test 04/28/25 05:54 Range/Units Serum Glucose 133 H 74-106 mg/dL Problem List/Assessment/Plan Problem List/Assessment/Plan Non ST-elevation myocardial infarction Severe coronary artery disease s/p PCI and stenting of the RCA x 1DES (pending stage procedure) Severe aortic valve stenosis status post TAVR (2021) Paroxysmal atrial fibrillation, now NSR (off NOAC) Aortic valve regurgitation, moderate degree Persistent hypokalemia Hypertension Dyslipidemia Nqx-jmqrzyx-hxhthtwcb diabetes mellitus Dementia Plan/Recommendation (Dr. Puentes) Transthoracic echocardiogram revealing LVEF of 65% with moderate degree of aortic regurgitation. Cardiac catheterization and coronary angiogram completed with PCI and stenting of the RCA x 1 JERRELL. The patient will be brought back for a stage procedure of the LAD and LCx on 04/30/25. This was discussed with Jessie over the phone who agrees with POC and understands all the risks and benefits of the procedure. Initiate renal hydration given high-risk for DWIGHT (High Pre-Zak Score). In the meantime, continue single-antiplatelet therapy, lipid lowering agent, and therapeutic Lovenox (hold day of procedure on 04/30/25). Monitor H&H closely. Replete electrolytes as necessary. Continue chest pain protocol. Monitor ECG changes and notify. Rest of plan per clinical course. Thank you for allowing us to participate in this patient's care. Please call if you have any questions or concerns. This medical document was created using an electronic medical record system with voice recognition software and computerized dictation system. Although this document has been carefully reviewed, there might still be some phonetic and typographical errors. Occasional wrong-word or ``sound-alike substitutions may have occurred due to the inherent limitations of voice recognition software. These areas are purely typographical due to imperfections of the software programs and do not reflect any compromise in the patient's medical care. Please read the chart carefully and recognize, using context, where these substitutions have occurred. Plan discussed with: Spouse, Other Dietary Evaluation Review Recommendations by RD: Protein Supplementation Comments: 1) Initiate Glucerna qd. Encourage optimal PO intake 2) Collect HbA1C 3) Follow-up with cardiology and pulmonology 4) Continue to monitor I&O, labs, and skin integrity Expected Outcomes/Goals: 1) appetite and labs to improve 2) f/u in 3-5 days Date of Service: April 28, 2025 Billing Provider: PRAVEEN BALL Cardiology Common Codes: [id number] [facility]OS[facility] CARE(High PRAVEEN BALL April 28, 2025 14:50
--- NOTE | 2025-04-28 15:14 | DVHPN2 ---
Subjective Patient is going to go for left heart catheterization today.. Reviewed: Care Plan Changes from previous H/P or p: No Changes Eyes: No Pain, No Vision change, No Conjunctivae inflammation, No Eyelid inflammation, No Other, No Redness ENT: No Ear pain, No Ear discharge, No Nose pain, No Nose discharge, No Nose congestion, No Mouth pain, No Mouth swelling, No Throat pain, No Throat swelling, No Other Cardiovascular: Chest Pain; No Palpitations, No Orthopnea, No Paroxysmal Noc. Dyspnea, No Edema, No Lt Headedness, No Other Respiratory: No Cough, No Dry, No Shortness of breath, No SOB with excertion, No Wheezing, No Hemoptysis, No Pleuritic Pain, No Sputum, No Other Gastrointestinal: No Nausea, No Vomiting, No Abdominal Pain, No Diarrhea, No Constipation, No Melena, No Hematochezia, No Other Genitourinary: No Dysuria, No Frequency, No Incontinence, No Hematuria, No Retention, No Other Musculoskeletal: No other, No neck pain, No shoulder pain, No arm pain, No back pain, No hand pain, No leg pain, No foot pain Skin: No Rash, No Lesions, No Jaundice, No Bruising, No Other Objective Vitals Vital Signs Date Time Temp Pulse Resp B/P (MAP) Pulse Ox O2 Delivery O2 Flow Rate FiO2 04/28/25 09:00 97.7 76 18 134/68 (90) 100 97.7 04/28/25 08:00 Room Air* 0 21 Intake/Output Intake and Output 04/28/25 07:00 Intake Total 1200 ml Balance 1200 ml Intake Oral 1200 ml # Voids 7 # Bowel Movements 1 Exam HEENT pupils are reactive Neck is supple CV is S1-S2 regular rate and rhythm Respiratory diminished breath sound bases GI posterior bowel sound 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 Medications Current Medications Medications Dose Ordered Sig/Zabrina Route Start Time Stop Time Status Last Admin Dose Admin Docusate Sodium 100 mg BIDPRN PRN PO 04/23/25 03:00 Acetaminophen 650 mg Q6HP PRN PO 04/23/25 03:00 04/24/25 00:31 650 MG Ondansetron HCl 4 mg Q4HP PRN IV 04/23/25 03:00 04/25/25 23:30 4 MG Morphine Sulfate 2 mg Q4HPRN PRN IV 04/23/25 03:00 04/25/25 23:29 2 MG Nitroglycerin 0.4 mg Q5MINP PRN SL 04/23/25 03:00 04/25/25 07:41 0.4 MG Morphine Sulfate 2 mg Q30M PRN IV 04/23/25 03:00 Diagnostic Test (Pha) 1 strip IQ4HR 04/23/25 04:00 04/28/25 08:00 1 STRIP Insulin Human Regular IQ4HR SC 04/23/25 04:00 04/28/25 08:05 2 UNITS Dextrose 50 ml UD PRN IV 04/23/25 03:00 Aspirin 81 mg DAILY PO 04/23/25 10:00 04/27/25 11:49 81 MG Metoprolol Tartrate 25 mg DAILY PO 04/23/25 10:00 04/27/25 11:50 25 MG Hydralazine HCl 10 mg Q4HPRN PRN IV 04/23/25 20:45 04/26/25 01:23 10 MG Atorvastatin Calcium 40 mg HS PO 04/25/25 22:00 04/27/25 20:59 40 MG Amlodipine Besylate 10 mg DAILY PO 04/26/25 10:00 04/27/25 11:50 10 MG Clopidogrel Bisulfate 75 mg DAILY PO 04/26/25 10:00 04/27/25 11:49 75 MG Sacubitril/ Valsartan 1 tab BID PO 04/25/25 22:00 04/27/25 20:59 1 TAB Enoxaparin Sodium 70 mg Q12HR SC 04/28/25 10:00 Laboratory Results Laboratory Tests 04/28/25 05:54 Chemistry Test 04/28/25 05:54 Albumin 3.7 g/dL (3.2-4.8) Calcium Level 8.8 mg/dL (8.7-10.4) Total Protein 6.8 g/dL (5.7-8.2) Coagulation Test 04/28/25 05:54 Prothrombin Time 10.9 sec (9.3-11.8) Prothrombin Time INR 1.03 (0.9-1.15) Activated Partial Thromboplast Time 32.2 SEC (24.5-34.5) LFT Test 04/28/25 05:54 Alanine Aminotransferase (ALT) 12 U/L (7-40) Alkaline Phosphatase 117 U/L (46-116) H Aspartate Amino Transferase (AST) 13 U/L (13-40) Total Bilirubin 0.7 mg/dL (0.2-1.0) Assessment/Plan Assessment/Plan 64-year-old male presented to the hospital with a has been found to have 1. Chest pain with a NSTEMI empty 2. Diabetes mellitus type 2 3. Congestive heart failure not in exacerbation 4. Hypertension 5. COPD not in exacerbation 6. Hard of hearing -2D echo cardiology consulting continue has been statin beta-sabrina. -left heart catheterization per Cardiology 04/28 Plan discussed with: Patient Date of Service: April 28, 2025 Billing Provider: SANDRA MCFARLANE MD Common Visit Codes: NOT BILLABLE SANDRA MCFARLANE MD April 28, 2025 15:14
--- NOTE | 2025-04-28 15:28 | DVHOP2 ---
Operative Report - 2 Report Details Date: 04/28/25 Preop Diagnosis: CAD Postop Diagnosis: CAD Surgeon: Sundeep Puentes MD Anesthesiologist: Conscious sedation Anesthesia: Mac, Local Consent: The patient was informed of the risks and benefits of the procedure. These include but are not limited to complications of anesthesia, postoperative infection, incomplete relief of symptoms, recurrence of symptoms, damage to blood vessels, nerves and tendons, deep venous thrombosis, pulmonary embolism and possible need for repeat surgery in the future. Complications: No complications Findings: Severe CAD Indications for Surgery: Chest pain Name of Procedure Performed Left heart catheterization. Bilateral cine coronary angiography. Left ventriculography. Procedure Details Procedure Details: Prior local anesthesia with 2% lidocaine to the right wrist and full informed consent obtained the patient was prepped draped in usual fashion followed by placement of a six Kyr[place]z sheath into the right radial RV through which a Cain catheter was used for cannulation of both right and left coronary ostia. A pig tail catheter was for ventriculography. an AL1 guide was used for angioplasty of the RCA. No complications. Hemodynamics: Aortic blood pressure was 150/90. End-diastolic pressure was 16. There was no gradient across the aortic valve on pullback. Coronary anatomy. RCA is a large vessel and has a proximal 40 and 50% stenosis a mid 95% stenosis and a distal 60-70% stenosis at the origin of the posterolateral branch. The PDA is free of significant disease. Left main is large and normal. Distal left main of about 20% stenosis. The proximal LAD has a 99% stenosis. The circumflex marginal has a 99% stenosis at its proximal portion. The circumflex is otherwise free of significant disease. Ventriculography in the HAIR projection shows an EF of 40%. Angioplasty was performed of the RCA. A Specter wire was placed across the area of stenosis and Omni wire was then placed an FFR was performed. There was an FFR of 0.7 suggesting severe CAD. We then placed a two five balloon with no improvement in the lesion. We then placed a shockwave balloon a 3-0 by 12 at approximately four atmospheres. The balloon ruptured after a 2nd treatment initiated within the 1st gradient. The pulse of the balloon was dissection within the RCA. We then placed a 30 x 2 five balloon into the RCA at 16 atmospheres with excellent antegrade flow with the problems mentioned dissection. There was excellent flow across the RCA. Impression successful PTCA and stenting of the RCA. Successful FFR evaluation with Omni wire. Decreased left ventricular ejection fraction. Elevated left ventricular end-diastolic pressure wrist Recommendations: We will do a staged procedure two days of the LAD and circumflex under sedation with anesthesia. Condition Guarded Disposition Still a Patient Date of Service: April 28, 2025 Billing Provider: SUNDEEP PUENTES Sr., MD Cardiology Common Codes: PROCEDURE ONLY Cardiology Procedure Codes: 92483 -PTCA W/STENT PLACEMENT ( fractional flow reserve evaluation with Omni wire) SUNDEEP PUENTES Sr., MD April 28, 2025 15:28
[2025-04-28] MEDS: POTASSIUM CHL 20 Meq TABLET PO ONE (16:32)
[2025-04-29] VITALS (7 sets, daily range): BP systolic 125–160; BP diastolic 64–83; PULSE 66–92; RESP 17–18; TEMP 97.6–98; O2SAT 97–98
[2025-04-29 07:58] LABS: Basophils # (auto) 0 10 ^3/uL (0-0.2); Basophils % (auto) 0.6 % (0.0-2.0); Eosinophils # (auto) 0.2 10 ^3/uL (0-0.8); Eosinophils % (auto) 4.3 % (0.0-7.0); Hematocrit 31.9 % (41.0-53.0); Hemoglobin 10.1 g/dL (13.5-17.5); Lymphocytes # (auto) 0.9 10 ^3/uL (0.4-5.4); Lymphocytes % (auto) 16.7 % (10.0-50.0); Mean Corpuscular Hemoglobin 28.3 pg (28.0-32.0); Mean Corpuscular Hgb Conc. 31.8 g/dL (32.0-36.0); Mean Corpuscular Volume 88.8 fL (80.0-100.0); Monocytes # (auto) 0.5 10 ^3/uL (0-1.3); Monocytes % (auto) 8.4 % (0.0-12.0); Neutrophils # (auto) 3.9 10 ^3/uL (1.6-8.6); Nucleated Red Blood Cells % 0.1 %; Platelet Count (auto) 219 10^3/uL (140-450); Red Blood Cells 3.59 10^6/uL (4.5-5.90); Red Cell Distribution Width 16.1 % (11.8-14.3); White Blood Cell 5.6 10^3/uL (4.4-10.8)
[2025-04-29 08:16] LABS: Alanine Aminotransferase 26 U/L (7-40); Albumin 4.2 g/dL (3.2-4.8); Anion Gap 14 (5-15); BUN/Creatinine Ratio 9.9 (10.0-20.0); Bilirubin, Total 0.9 mg/dL (0.2-1.0); Calcium 9.4 mg/dL (8.7-10.4); Potassium 3.7 mmol/L (3.5-5.1); Sodium 144 mmol/L (136-145); Total Protein 8.1 g/dL (5.7-8.2)
[2025-04-29 08:28] LABS: Alkaline Phosphatase 167 U/L (46-116); Aspartate Aminotransferase 40 U/L (13-40); Blood Urea Nitrogen 8 mg/dL (9-23); Carbon Dioxide 18 mmol/L (20-31); Chloride 112 mmol/L (98-107); Glucose 135 mg/dL (74-106)
--- NOTE | 2025-04-29 13:27 | DVHPN2 ---
Consult Progress Note Subjective Other Systems: Patient denies any cardiac symptoms at time of assessment. Objective vital signs Vital Sign Date Time Temp Pulse Resp B/P (MAP) Pulse Ox O2 Delivery O2 Flow Rate FiO2 04/29/25 13:00 98.0 70 18 141/83 (102) 97 98.0 04/29/25 08:00 Room Air* 0 21 Total Intake and Output 04/28/25 04/28/25 04/29/25 15:00 23:00 07:00 Intake Total 200 ml Balance 200 ml medications Current Medications Medications Dose Ordered Sig/Zabrina Route Start Time Stop Time Status Last Admin Dose Admin Docusate Sodium 100 mg BIDPRN PRN PO 04/23/25 03:00 Acetaminophen 650 mg Q6HP PRN PO 04/23/25 03:00 04/24/25 00:31 650 MG Ondansetron HCl 4 mg Q4HP PRN IV 04/23/25 03:00 04/25/25 23:30 4 MG Morphine Sulfate 2 mg Q4HPRN PRN IV 04/23/25 03:00 04/25/25 23:29 2 MG Nitroglycerin 0.4 mg Q5MINP PRN SL 04/23/25 03:00 04/25/25 07:41 0.4 MG Morphine Sulfate 2 mg Q30M PRN IV 04/23/25 03:00 Diagnostic Test (Pha) 1 strip IQ4HR 04/23/25 04:00 04/29/25 12:22 1 STRIP Insulin Human Regular IQ4HR SC 04/23/25 04:00 04/29/25 12:42 3 UNITS Dextrose 50 ml UD PRN IV 04/23/25 03:00 Aspirin 81 mg DAILY PO 04/23/25 10:00 04/29/25 09:35 81 MG Metoprolol Tartrate 25 mg DAILY PO 04/23/25 10:00 04/29/25 09:35 25 MG Hydralazine HCl 10 mg Q4HPRN PRN IV 04/23/25 20:45 04/26/25 01:23 10 MG Atorvastatin Calcium 40 mg HS PO 04/25/25 22:00 04/28/25 21:36 40 MG Amlodipine Besylate 10 mg DAILY PO 04/26/25 10:00 04/29/25 09:36 10 MG Clopidogrel Bisulfate 75 mg DAILY PO 04/26/25 10:00 04/29/25 09:35 75 MG Sacubitril/ Valsartan 1 tab BID PO 04/25/25 22:00 04/29/25 09:35 1 TAB Enoxaparin Sodium 70 mg Q12HR SC 04/28/25 10:00 04/29/25 09:34 70 MG Examination: GENERAL:Normal, LUNGS:Normal, CVS:Normal, NEURO:Abnormal (Periods of confusion) laboratory and microbiology Laboratory Tests 04/29/25 07:21 Test 04/29/25 07:21 Range/Units Serum Glucose 135 H 74-106 mg/dL Problem List/Assessment/Plan Problem List/Assessment/Plan Non ST-elevation myocardial infarction Severe coronary artery disease s/p PCI and stenting of the RCA x 1DES (pending stage procedure) Severe aortic valve stenosis status post TAVR (2021) Paroxysmal atrial fibrillation, now NSR (off NOAC) Aortic valve regurgitation, moderate degree Persistent hypokalemia Hypertension Dyslipidemia Jtn-[id number] diabetes mellitus Dementia Plan/Recommendation (Dr. Puentes) Transthoracic echocardiogram revealing LVEF of 65% with moderate degree of aortic regurgitation. Cardiac catheterization and coronary angiogram completed with PCI and stenting of the RCA x 1 JERRELL. The patient will be brought back for a stage procedure of the LAD and LCx on 04/30/25. This was discussed with Jessie at bedside. She verbalized understanding of all the risks and benefits of the procedure. In the meantime, dual antiplatelet therapy, lipid lowering agent, and therapeutic Lovenox (hold day of procedure on 04/30/25). Monitor H&H closely. Replete electrolytes as necessary. Monitor ECG changes and notify. Rest of plan per clinical course. Thank you for allowing us to participate in this patient's care. Please call if you have any questions or concerns. This medical document was created using an electronic medical record system with voice recognition software and computerized dictation system. Although this document has been carefully reviewed, there might still be some phonetic and typographical errors. Occasional wrong-word or ``sound-alike substitutions may have occurred due to the inherent limitations of voice recognition software. These areas are purely typographical due to imperfections of the software programs and do not reflect any compromise in the patient's medical care. Please read the chart carefully and recognize, using context, where these substitutions have occurred. Plan discussed with: Patient, Spouse Dietary Evaluation Review Recommendations by RD: Protein Supplementation Comments: 1) Initiate Glucerna qd. Encourage optimal PO intake 2) Collect HbA1C 3) Follow-up with cardiology and pulmonology 4) Continue to monitor I&O, labs, and skin integrity Expected Outcomes/Goals: 1) appetite and labs to improve 2) f/u in 3-5 days Date of Service: April 29, 2025 Billing Provider: MADDIE SCHAFFER Common Visit Codes: [id number] INP/OBS CARE(HIGH) MADDIE SCHAFFER April 29, 2025 13:27
[2025-04-29] MEDS ORDERED: DEXTROSE (50%) 50ML SYRG IV PRN (14:00)
--- NOTE | 2025-04-29 14:46 | DVHPN2 ---
Subjective Patient underwent left heart catheterization yesterday in which found to have RCA as well as LAD and circumflex lesion. Patient is status post PCI to RCA. Reviewed: Care Plan Changes from previous H/P or p: No Changes Eyes: No Pain, No Vision change, No Conjunctivae inflammation, No Eyelid inflammation, No Other, No Redness ENT: No Ear pain, No Ear discharge, No Nose pain, No Nose discharge, No Nose congestion, No Mouth pain, No Mouth swelling, No Throat pain, No Throat swelling, No Other Cardiovascular: Chest Pain; No Palpitations, No Orthopnea, No Paroxysmal Noc. Dyspnea, No Edema, No Lt Headedness, No Other Respiratory: No Cough, No Dry, No Shortness of breath, No SOB with excertion, No Wheezing, No Hemoptysis, No Pleuritic Pain, No Sputum, No Other Gastrointestinal: No Nausea, No Vomiting, No Abdominal Pain, No Diarrhea, No Constipation, No Melena, No Hematochezia, No Other Genitourinary: No Dysuria, No Frequency, No Incontinence, No Hematuria, No Retention, No Other Musculoskeletal: No other, No neck pain, No shoulder pain, No arm pain, No back pain, No hand pain, No leg pain, No foot pain Skin: No Rash, No Lesions, No Jaundice, No Bruising, No Other Objective Vitals Vital Signs Date Time Temp Pulse Resp B/P (MAP) Pulse Ox O2 Delivery O2 Flow Rate FiO2 04/29/25 13:00 98.0 70 18 141/83 (102) 97 98.0 04/29/25 08:00 Room Air* 0 21 Intake/Output Intake and Output 04/29/25 07:00 Intake Total 200 ml Balance 200 ml Intake Oral 200 ml # Voids 7 Exam HEENT pupils are reactive Neck is supple CV is S1-S2 regular rate and rhythm Respiratory diminished breath sound bases GI posterior bowel sound Extremity no edema [employer] no motor deficit Medications Current Medications Medications Dose Ordered Sig/Zabrina Route Start Time Stop Time Status Last Admin Dose Admin Docusate Sodium 100 mg BIDPRN PRN PO 04/23/25 03:00 Acetaminophen 650 mg Q6HP PRN PO 04/23/25 03:00 04/24/25 00:31 650 MG Ondansetron HCl 4 mg Q4HP PRN IV 04/23/25 03:00 04/25/25 23:30 4 MG Morphine Sulfate 2 mg Q4HPRN PRN IV 04/23/25 03:00 04/25/25 23:29 2 MG Nitroglycerin 0.4 mg Q5MINP PRN SL 04/23/25 03:00 04/25/25 07:41 0.4 MG Morphine Sulfate 2 mg Q30M PRN IV 04/23/25 03:00 Diagnostic Test (Pha) 1 strip IQ4HR 04/23/25 04:00 04/29/25 12:22 1 STRIP Dextrose 50 ml UD PRN IV 04/23/25 03:00 Aspirin 81 mg DAILY PO 04/23/25 10:00 04/29/25 09:35 81 MG Metoprolol Tartrate 25 mg DAILY PO 04/23/25 10:00 04/29/25 09:35 25 MG Hydralazine HCl 10 mg Q4HPRN PRN IV 04/23/25 20:45 04/26/25 01:23 10 MG Atorvastatin Calcium 40 mg HS PO 04/25/25 22:00 04/28/25 21:36 40 MG Amlodipine Besylate 10 mg DAILY PO 04/26/25 10:00 04/29/25 09:36 10 MG Clopidogrel Bisulfate 75 mg DAILY PO 04/26/25 10:00 04/29/25 09:35 75 MG Sacubitril/ Valsartan 1 tab BID PO 04/25/25 22:00 04/29/25 09:35 1 TAB Enoxaparin Sodium 70 mg Q12HR SC 04/28/25 10:00 04/29/25 09:34 70 MG Diagnostic Test (Pha) 1 strip ACHS 04/29/25 17:00 UNV Insulin Human Regular ACHS SC 04/29/25 17:00 UNV Dextrose 50 ml UD PRN IV 04/29/25 14:00 UNV Pantoprazole Sodium 40 mg DAILY IV 04/30/25 10:00 UNV Laboratory Results Laboratory Tests 04/29/25 07:21 Chemistry Test 04/29/25 07:21 Albumin 4.2 g/dL (3.2-4.8) Calcium Level 9.4 mg/dL (8.7-10.4) Total Protein 8.1 g/dL (5.7-8.2) LFT Test 04/29/25 07:21 Alanine Aminotransferase (ALT) 26 U/L (7-40) Alkaline Phosphatase 167 U/L (46-116) H Aspartate Amino Transferase (AST) 40 U/L (13-40) Total Bilirubin 0.9 mg/dL (0.2-1.0) Assessment/Plan Assessment/Plan 64-year-old male presented to the hospital with a has been found to have 1. NSTEMI status post left heart catheterization with a PCI to RCA, staged PCI to LAD and circumflex later 2. Diabetes mellitus type 2 3. Congestive heart failure not in exacerbation 4. Hypertension 5. COPD not in exacerbation 6. Hard of hearing -continue dual antiplatelet therapy, statin, beta sabrina -follow up Cardiology recommendations Plan discussed with: Patient, Spouse My Orders Orders - SANDRA MCFARLANE MD Procedure Category Date Status Time Glucose Blood PHA 04/29/25 Logged (Accu-Chek Comfort 17:00 Insulin R (Human) PHA 04/29/25 Logged (Insulin R) 17:00 Dextrose 50% Syringe PHA 04/29/25 Logged 14:00 Pantoprazole PHA 04/30/25 Logged (Protonix) 10:00 Date of Service: April 29, 2025 Billing Provider: SANDRA MCFARLANE MD Common Visit Codes: NOT BILLABLE SANDRA MCFARLANE MD April 29, 2025 14:46
[2025-04-29] MEDS: PANTOPRAZOLE 40 MG/10 ML VIAL INJ IV ONE (15:27)
[2025-04-29] MEDS: ACCU-CHEK COMFORT CURVE STRIP VI SCH (17:16)
[2025-04-29] MEDS: InsuLIN REG 1unit/0.01ml Soln (100units/ml) SC SCH (17:20)
[2025-04-30] VITALS (10 sets, daily range): BP systolic 121–158; BP diastolic 45–74; PULSE 43–76; RESP 13–18; TEMP 97.7–98.4; O2SAT 93–100
[2025-04-30 06:49] LABS: Basophils # (auto) 0 10 ^3/uL (0-0.2); Basophils % (auto) 0.7 % (0.0-2.0); Eosinophils # (auto) 0.2 10 ^3/uL (0-0.8); Eosinophils % (auto) 4.6 % (0.0-7.0); Hematocrit 28.3 % (41.0-53.0); Hemoglobin 9.1 g/dL (13.5-17.5); Lymphocytes % (auto) 22.1 % (10.0-50.0); Mean Corpuscular Hemoglobin 28.5 pg (28.0-32.0); Mean Corpuscular Hgb Conc. 32.3 g/dL (32.0-36.0); Mean Corpuscular Volume 88.1 fL (80.0-100.0); Monocytes # (auto) 0.5 10 ^3/uL (0-1.3); Monocytes % (auto) 10.9 % (0.0-12.0); Neutrophils # (auto) 2.9 10 ^3/uL (1.6-8.6); Neutrophils % (auto) 61.7 % (37.0-80.0); Nucleated Red Blood Cells % 0.1 %; Platelet Count (auto) 182 10^3/uL (140-450); Red Blood Cells 3.21 10^6/uL (4.5-5.90); Red Cell Distribution Width 16.4 % (11.8-14.3); White Blood Cell 4.8 10^3/uL (4.4-10.8)
[2025-04-30 06:57] LABS: Alanine Aminotransferase 24 U/L (7-40); Albumin 3.6 g/dL (3.2-4.8); Anion Gap 8 (5-15); Aspartate Aminotransferase 23 U/L (13-40); BUN/Creatinine Ratio 10.1 (10.0-20.0); Bilirubin, Total 0.6 mg/dL (0.2-1.0); Carbon Dioxide 22 mmol/L (20-31); Potassium 3.8 mmol/L (3.5-5.1); Total Protein 6.9 g/dL (5.7-8.2)
[2025-04-30 07:01] LABS: Alkaline Phosphatase 140 U/L (46-116); Blood Urea Nitrogen 9 mg/dL (9-23); Chloride 117 mmol/L (98-107); Glucose 125 mg/dL (74-106); Sodium 147 mmol/L (136-145)
[2025-04-30] MEDS: PANTOPRAZOLE 40 MG/10 ML VIAL INJ IV SCH (09:49)
[2025-04-30] MEDS: IODIXANOL 320MG/ML 100ML BTL IV ONE ×2 (11:58→13:23)
[2025-04-30] MEDS ORDERED: fentaNYL CITRATE 100 MCG/2 ML VL ONE (12:17)
[2025-04-30] MEDS ORDERED: MIDAZOLAM HCL 2MG/2ML 2ml VIAL (1mg/ml) ONE (12:17)
[2025-04-30] MEDS ORDERED: PROPOFOL 10 MG/ML 20 ML IV ONE (12:18)
[2025-04-30] MEDS ORDERED: DexAMETHasone SOD PHOS 10MG/1ML VIAL INJ ONE (12:18)
[2025-04-30] MEDS: ANGIOMAX 250 MG VIAL IV ONE (12:47)
[2025-04-30] MEDS: SODIUM CHL 0.9% 50 ML ONE (12:48)
[2025-04-30] MEDS: LIDOCAINE 2%HCL (LOCAL ANESTH.) INJ 20ML MDV ONE (13:23)
--- NOTE | 2025-04-30 13:46 | DVHOP2 ---
Operative Report - 2 Report Details Date: 04/30/25 Preop Diagnosis: CAD Postop Diagnosis: CAD Surgeon: Sundeep Puentes MD Anesthesiologist: Cnidy Salas and Dr. Maxwell Anesthesia: General, Mac, Local Consent: The patient was informed of the risks and benefits of the procedure. These include but are not limited to complications of anesthesia, postoperative infection, incomplete relief of symptoms, recurrence of symptoms, damage to blood vessels, nerves and tendons, deep venous thrombosis, pulmonary embolism and possible need for repeat surgery in the future. Complications: No complications Findings: Severe stenosis of LAD and circumflex marginal. Indications for Surgery: CAD. Angina. Name of Procedure Performed Left heart catheterization. Bilateral cine coronary angiography. Left ventriculography.PTCA and stenting of the LAD and circumflex. Intravascular ultrasound of circumflex and left main coronary arteries Procedure Details Procedure Details: Prior local anesthesia with 2% lidocaine to the right groin Along with deep sedation by Anesthesiology and full informed consent obtained. The patient was prepped and draped usual fashion. We under fluoroscopic and ultrasound guidance we placed the sheath into the right femoral artery. We then placed a three five EBU guide into the left main and a Specter wire into the LAD. We then pre- dilated the LAD Which had a 99% proximal stenosis, with a two 5 x 8 balloon. We placed a 2.75 by 12 mm stent into the left anterior descending coronary artery and dilated and deployed at approximately 18 atmospheres. There was excellent antegrade flow without thrombus formation and a dissection. We then redirected the wire into the left main and circumflex marginal. the pr oximal marginal and a 95% stenosis. We pre-dilated with the same stent balloon. We then placed a 2.75 by 18 mm stent into the previously stenosed 90% stenosis of the proximal marginal. There was excellent antegrade flow without thrombus formation dissection. Intravascular ultrasound evaluation was performed of the circumflex and of the left main. There was no significant left main stenosis. There was significant stenosis of the marginals previously described and he measurement was taken to size the stent to the artery. Impression: Successful PTCA and stenting of the LAD and circumflex. Intravascular ultrasound evaluation of the circumflex and left main. Recommendations: Risk factor modification. Dual antiplatelet therapy. A Perclose devices used to seal the artery. Condition Good Disposition Still a Patient Date of Service: April 30, 2025 Billing Provider: SUNDEEP PUENTES Sr., MD Cardiology Common Codes: [id number] INP/OBS CARE (High) Cardiology Procedure Codes: 99921 -PTCA W/STENT PLACEMENT ( intravascular ultrasound of left main and circumflex coronary artery), [id number] ADD CORONARY BRANCH SUNDEEP PUENTES Sr., MD April 30, 2025 13:46
[2025-04-30] MEDS ORDERED: CLOP75TA70 PO (15:29)
[2025-04-30] MEDS ORDERED: CARV3.1240 PO (15:29)
[2025-04-30] MEDS ORDERED: PRAV20TA3 PO (15:29)
[2025-04-30] MEDS ORDERED: ASPI81CH59 PO (15:29)
[2025-04-30] MEDS ORDERED: SACU1TAB PO (15:29)
--- NOTE | 2025-04-30 15:30 | DVHPN2 ---
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 Puentes a beater engineer. I have talked with the beater engineer over the phone vital signs Vital Sign Date Time Temp Pulse Resp B/P (MAP) Pulse Ox O2 Delivery O2 Flow Rate FiO2 04/30/25 14:20 66 16 133/63 (86) 99 04/30/25 13:33 98.1 98.1 04/30/25 08:00 Room Air* 0 21 Total Intake and Output 04/29/25 04/29/25 04/30/25 15:00 23:00 07:00 Intake Total 250 ml 200 ml Balance 250 ml 200 ml medications Current Medications Medications Dose Ordered Sig/Zabrina Route Start Time Stop Time Status Last Admin Dose Admin Docusate Sodium 100 mg BIDPRN PRN PO 04/23/25 03:00 Acetaminophen 650 mg Q6HP PRN PO 04/23/25 03:00 04/24/25 00:31 650 MG Ondansetron HCl 4 mg Q4HP PRN IV 04/23/25 03:00 04/29/25 15:27 4 MG Morphine Sulfate 2 mg Q4HPRN PRN IV 04/23/25 03:00 04/25/25 23:29 2 MG Nitroglycerin 0.4 mg Q5MINP PRN SL 04/23/25 03:00 04/25/25 07:41 0.4 MG Morphine Sulfate 2 mg Q30M PRN IV 04/23/25 03:00 Dextrose 50 ml UD PRN IV 04/23/25 03:00 Aspirin 81 mg DAILY PO 04/23/25 10:00 04/30/25 09:49 81 MG Metoprolol Tartrate 25 mg DAILY PO 04/23/25 10:00 04/30/25 09:51 25 MG Hydralazine HCl 10 mg Q4HPRN PRN IV 04/23/25 20:45 04/26/25 01:23 10 MG Atorvastatin Calcium 40 mg HS PO 04/25/25 22:00 04/29/25 22:07 40 MG Amlodipine Besylate 10 mg DAILY PO 04/26/25 10:00 04/30/25 09:50 10 MG Clopidogrel Bisulfate 75 mg DAILY PO 04/26/25 10:00 04/30/25 09:50 75 MG Sacubitril/ Valsartan 1 tab BID PO 04/25/25 22:00 04/30/25 09:49 1 TAB Enoxaparin Sodium 70 mg Q12HR SC 04/28/25 10:00 04/29/25 22:09 70 MG Diagnostic Test (Pha) 1 strip ACHS 04/29/25 17:00 04/30/25 11:42 1 STRIP Insulin Human Regular ACHS SC 04/29/25 17:00 04/29/25 22:09 4 UNITS Dextrose 50 ml UD PRN IV 04/29/25 14:00 Pantoprazole Sodium 40 mg DAILY IV 04/30/25 10:00 04/30/25 09:49 40 MG 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 Monitor him overnight. If he remains stable consider discharge home tomorrow. Problems(with codes): (1) Acute coronary syndrome Dietary Evaluation Review Recommendations by RD: Protein Supplementation Comments: 1) Initiate Glucerna qd. Encourage optimal PO intake 2) Collect HbA1C 3) Follow-up with cardiology and pulmonology 4) Continue to monitor I&O, labs, and skin integrity Expected Outcomes/Goals: 1) appetite and labs to improve 2) f/u in 3-5 days Plan discussed with: CHUNG Dobbins MD April 30, 2025 15:30
[2025-05-01 01:00] VITALS: BP 118/48; PULSE 72; RESP 16; TEMP 97.9; O2SAT 98
[2025-05-01 05:00] VITALS: BP 149/67; PULSE 74; RESP 16; TEMP 98; O2SAT 97
[2025-05-01 07:43] LABS: Basophils # (auto) 0 10 ^3/uL (0-0.2); Basophils % (auto) 0.9 % (0.0-2.0); Eosinophils # (auto) 0.3 10 ^3/uL (0-0.8); Eosinophils % (auto) 5.6 % (0.0-7.0); Hematocrit 28.4 % (41.0-53.0); Hemoglobin 9.2 g/dL (13.5-17.5); Lymphocytes % (auto) 19.1 % (10.0-50.0); Mean Corpuscular Hemoglobin 28.9 pg (28.0-32.0); Mean Corpuscular Hgb Conc. 32.4 g/dL (32.0-36.0); Mean Corpuscular Volume 89.2 fL (80.0-100.0); Monocytes # (auto) 0.5 10 ^3/uL (0-1.3); Monocytes % (auto) 9.1 % (0.0-12.0); Neutrophils # (auto) 3.4 10 ^3/uL (1.6-8.6); Neutrophils % (auto) 65.3 % (37.0-80.0); Nucleated Red Blood Cells % 0.2 %; Platelet Count (auto) 178 10^3/uL (140-450); Red Blood Cells 3.18 10^6/uL (4.5-5.90); Red Cell Distribution Width 16.4 % (11.8-14.3); White Blood Cell 5.2 10^3/uL (4.4-10.8)
[2025-05-01 07:52] LABS: Alanine Aminotransferase 22 U/L (7-40); Anion Gap 12 (5-15); Aspartate Aminotransferase 21 U/L (13-40); BUN/Creatinine Ratio 7.4 (10.0-20.0); Calcium 8.9 mg/dL (8.7-10.4); Sodium 143 mmol/L (136-145); Total Protein 6.8 g/dL (5.7-8.2)
[2025-05-01 07:53] LABS: Albumin 3.5 g/dL (3.2-4.8); Alkaline Phosphatase 135 U/L (46-116); Bilirubin, Total 0.7 mg/dL (0.2-1.0); Blood Urea Nitrogen 6 mg/dL (9-23); Carbon Dioxide 18 mmol/L (20-31); Chloride 113 mmol/L (98-107); Glucose 126 mg/dL (74-106); Potassium 3.1 mmol/L (3.5-5.1)
[2025-05-01 08:00] VITALS: PULSE 77
[2025-05-01 09:06] VITALS: BP 128/47; PULSE 64; RESP 19; TEMP 97.6; O2SAT 97
[2025-05-01] MEDS: POTASSIUM EFFERVESENT TAB 25 MEQ PO ONE (09:33)
--- NOTE | 2025-05-01 10:53 | DVHDS2 ---
Discharge Summary Date of Admission April 23, 2025 at 02:48 Date of Discharge: May 01, 2025 Labs/Diagnostic Data: Laboratory Results Test 05/01/25 05:33 05/01/25 05:17 04/28/25 05:54 04/26/25 10:00 POC Glucose 133 mg/dl (70-106) White Blood Count 5.2 10^3/uL (4.4-10.8) Red Blood Count 3.18 10^6/uL (4.5-5.90) Hemoglobin 9.2 g/dL (13.5-17.5) Hematocrit 28.4 % (41.0-53.0) Mean Corpuscular Volume 89.2 fL (80.0-100.0) Mean Corpuscular Hemoglobin 28.9 pg (28.0-32.0) Mean Corpuscular Hemoglobin Concent 32.4 g/dL (32.0-36.0) Red Cell Distribution Width 16.4 % (11.8-14.3) Platelet Count 178 10^3/uL (140-450) Mean Platelet Volume 9.1 fL (6.9-10.8) Neutrophils (%) (Auto) 65.3 % (37.0-80.0) Lymphocytes (%) (Auto) 19.1 % (10.0-50.0) Monocytes (%) (Auto) 9.1 % (0.0-12.0) Eosinophils (%) (Auto) 5.6 % (0.0-7.0) Basophils (%) (Auto) 0.9 % (0.0-2.0) Neutrophils # (Auto) 3.4 10 ^3/uL (1.6-8.6) Lymphocytes # (Auto) 1.0 10 ^3/uL (0.4-5.4) Monocytes # (Auto) 0.5 10 ^3/uL (0-1.3) Eosinophils # (Auto) 0.3 10 ^3/uL (0-0.8) Basophils # (Auto) 0 10 ^3/uL (0-0.2) Nucleated Red Blood Cells 0.2 % Sodium Level 143 mmol/L (136-145) Potassium Level 3.1 mmol/L (3.5-5.1) Chloride Level 113 mmol/L (98-107) Carbon Dioxide Level 18 mmol/L (20-31) Anion Gap 12 (5-15) Blood Urea Nitrogen 6 mg/dL (9-23) Creatinine 0.81 mg/dL (0.700-1.30) Glomerular Filtration Rate Calc 86 mL/min (>90) BUN/Creatinine Ratio 7.4 (10.0-20.0) Serum Glucose 126 mg/dL (74-106) Calcium Level 8.9 mg/dL (8.7-10.4) Total Bilirubin 0.7 mg/dL (0.2-1.0) Aspartate Amino Transferase (AST) 21 U/L (13-40) Alanine Aminotransferase (ALT) 22 U/L (7-40) Alkaline Phosphatase 135 U/L (46-116) Total Protein 6.8 g/dL (5.7-8.2) Albumin 3.5 g/dL (3.2-4.8) Prothrombin Time 10.9 sec (9.3-11.8) Prothrombin Time INR 1.03 (0.9-1.15) Activated Partial Thromboplast Time 32.2 SEC (24.5-34.5) Hemoglobin A1c 6.4 % A1C (<5.7) Triglycerides Level 140 mg/dL (< 150) Cholesterol Level 111 mg/dL (< 200) LDL Cholesterol 70 mg/dL (< 100) HDL Cholesterol 26 mg/dL (40-59) Thyroid Stimulating Hormone (TSH) 1.17 uIU/mL (0.55-4.78) Test 04/23/25 22:03 04/22/25 22:38 Troponin I High Sensitivity 48 ng/L (</=54) Magnesium Level 2.0 mg/dL (1.6-2.6) B-Type Natriuretic Peptide 483.26 pg/mL (0-100) Other Laboratory Tests 05/01/25 05:17 Brief Hx & Hospital Course: 84-year-old male with past medical history of CHF, AFib, COPD, DM, dementia, hard of hearing presents with complaints of chest pain x1 day. Information in this HPI is limited due to the patient being a poor historian and having difficulty with hearing. Patient reported treating with sublingual nitroglycerin. Which improved chest pain. During the emergency department evaluation troponin 43/89/182 at this time patient denies fevers, chills, shortness of breath, palpitations, nausea, vomiting. He is admitted and noted to have non ST elevation ND with coronary artery atherosclerotic vascular disease. Patient is evaluated by dean for student affairs recommended coronary angiogram and underwent successful angiogram with coronary artery stent placements. Postop patient monitored overnight did well. Chest pain is resolved. He is getting out of bed ambulating without any chest pain or shortness for breath symptoms. He is feeling better back to baseline status. Therefore patient and his who is at bedside requesting patient to be discharged home. I have talked to both of them regarding importance of dual antiplatelet therapy and cardiac medications as he is prescribed and advised to continue them indefinitely. Also told them that patient should follow up with dean for student affairs in two weeks. Patient/ verbalized understanding over hospital diagnosis, treatment, discharge medications, discharge instructions and follow- up plan of care. Consults/Reason for consult APPROVED REPORT EXAM: Two-dimensional and M-mode echocardiogram with Doppler and color Doppler. Blood Pressure: 140/57 mmHg INDICATION Chest Pain Surgery/Intervention Valve Replacement: Type: TAVR RISK FACTORS Height: 6'2", Weight: 166 DIMENSIONS LVDd 4.6 (3.8-5.7cm) LA (2D) 3.8 (1.9-4.0cm) Aortic Root (2.0- 3.7cm) LVDs 3.4 (2.5-4.0cm) LA (MM) (1.9-4.0cm) Aortic Cusp Exc (1.5- 2.0cm) EF (%) 52.0 (55-70%) Rt. Atrium 3.8 (1.9-4.0cm) Asc. Aorta cm IVSd 1.5 (0.7-1.1cm) RV (D) (1.8-2.4cm) PWd 4.9 (0.7-1.1cm) Mitral Valve Mitral Mitral Stenosis E wave 0.76m/s MV Mean GR. mmHg A wave 1.23m/s MV Peak GR. mmHg E/A ratio 0.6 2D MVA cm2 DECEL Time 288ms PRESS 1/2 Time ms Aortic Valve Aortic Valve Aortic Stenosis V1 1.78m/s AO Mean GR. 8mmHg V2 1.80m/s AO Peak GR. 14mmHg LVOT Diameter 2.1 (1.8-2.4cm) Doppler SEBASTIÁN 3.42cm2 AI P 1/2 Time 363.27ms Pulmonic Valve V2 0.76m/s Other Information Quality : Technically Limited Rhythm : Technically limited study due to body habitus and moving. Conclusion MODERATE DEGREE LVH AND MODERATE DEGREE LV DIASTOLIC DYSFUNCTION LV EF IS 65% MODERATELY CALCIFIED AORTIC LEAFLETS MODERATE DEGREE AORTIC REGURGITATION NODULAR DEGENERATION OF MV NO EFFUSION SIGNED BY: ALEJANDRO ROD MD SIGNED DATE/TIME: 04/24/25 0154 Operations or Procedures Operative Report - 2 Report Details Date: 04/28/25 Preop Diagnosis: CAD Postop Diagnosis: CAD Surgeon: Sundeep Castillo MD Anesthesiologist: Conscious sedation Anesthesia: Mac, Local Consent: The patient was informed of the risks and benefits of the procedure. These include but are not limited to complications of anesthesia, postoperative infection, incomplete relief of symptoms, recurrence of symptoms, damage to blood vessels, nerves and tendons, deep venous thrombosis, pulmonary embolism and possible need for repeat surgery in the future. Complications: No complications Findings: Severe CAD Indications for Surgery: Chest pain Name of Procedure Performed Left heart catheterization. Bilateral cine coronary angiography. Left ventriculography. Procedure Details Procedure Details: Prior local anesthesia with 2% lidocaine to the right wrist and full informed consent obtained the patient was prepped draped in usual fashion followed by placement of a six Mohawk sheath into the right radial RV through which a Cain catheter was used for cannulation of both right and left coronary ostia. A pigtail catheter was for ventriculography. an AL1 guide was used for angioplasty of the RCA. No complications. Hemodynamics: Aortic blood pressure was 150/90. End-diastolic pressure was 16. There was no gradient across the aortic valve on pullback. Coronary anatomy. RCA is a large vessel and has a proximal 40 and 50% stenosis a mid 95% stenosis and a distal 60-70% stenosis at the origin of the posterolateral branch. The PDA is free of significant disease. Left main is large and normal. Distal left main of about 20% stenosis. The proximal LAD has a 99% stenosis. The circumflex marginal has a 99% stenosis at its proximal portion. The circumflex is otherwise free of significant disease. Ventriculography in the HAIR projection shows an EF of 40%. Angioplasty was performed of the RCA. A Specter wire was placed across the area of stenosis and Omni wire was then placed an FFR was performed. There was an FFR of 0.7 suggesting severe CAD. We then placed a two five balloon with no improvement in the lesion. We then placed a shockwave balloon a 3-0 by 12 at approximately four atmospheres. The balloon ruptured after a 2nd treatment initiated within the 1st gradient. The pulse of the balloon was dissection within the RCA. We then placed a 30 x 2 five balloon into the RCA at 16 atmospheres with excellent antegrade flow with the problems mentioned dissection. There was excellent flow across the RCA. Impression successful PTCA and stenting of the RCA. Successful FFR evaluation with Omni wire. Decreased left ventricular ejection fraction. Elevated left ventricular end-diastolic pressure wrist Recommendations: We will do a staged procedure two days of the LAD and circumflex under sedation with anesthesia. Condition Guarded Disposition 2 Still a Patient Date of Service: April 28, 2025 Billing Provider: SUNDEEP CASTILLO Sr., MD Cardiology Common Codes: PROCEDURE ONLY Cardiology Procedure Codes: 84689 -PTCA W/STENT PLACEMENT ( fractional flow reserve evaluation with Omni wire) Condition at Discharge: Good Final Diagnosis/Problems List CAD status post angiogram with a stent placements, atherosclerotic heart disease, hypertension Discharge Disposition: Home Discharge Instruct/Medications Diet: Consistent carbohydrate, Cardiac 2g Na,low cholest Activity: No Restrictions, As Tolerated Follow Up/Referral: With Dr. Castillo [facility] for student affairs in two weeks. Medications: Take all the medications as prescribed and per discharge med reconciliation list. Changed Medications: Aspirin (Aspirin Low Dose) 81 Mg Chw 81 MG PO DAILY, #60 TAB.CHEW (Medication details modified) Sacubitril-Valsartan (Entresto 24-26 mg) 1 Tab Tab 1 TAB PO BID, #60 TAB (Medication details modified) Continued Medications: Amlodipine Besylate (Amlodipine Besylate) 10 Mg Tab 1 TAB PO DAILY, #30 TAB 5 Refills Carvedilol (Carvedilol) 3.125 Mg Tab 1 TAB PO BID, #60 TAB 3 Refills (This prescription has been renewed) Clopidogrel Bisulfate (Clopidogrel) 75 Mg Tab 1 TAB PO DAILY, #90 TAB 5 Refills (This prescription has been renewed) Ferrous Sulfate (Ferrous Sulfate) 325 Mg Tb 1 TAB PO DAILY, #30 TAB 3 Refills Fludrocortisone Acetate (Florinef) 0.1 Mg Tb 1 TAB PO DAILY, #30 TAB 5 Refills Fluticasone-Salmeterol (Advair Diskus 250/50) 1 Puff Ih 1 PUFF INH BID, #1 INHALER 5 Refills Insulin Glargine (Lantus Solostar) 100 Unit/Ml Inj 0-50 UNIT SC DAILY Melatonin (Kp Melatonin) 3 Mg Tab 10 MG PO, TAB Metformin Hydrochloride (Metformin Hcl) 500 Mg Tab 1 TAB PO BID Multiple Vitamins W/ Minerals (Preservision Areds 2) Areds 2 Cap 1 2 PO, CAP Omeprazole (Gnp Omeprazole) 20 Mg Tab 1 TAB PO DAILY, #30 TAB 3 Refills Pravastatin Sodium (Pravachol Tablet) 20 Mg Tb 1 TAB PO DAILY, #30 TAB 1 Refill (This prescription has been renewed) Tamsulosin Hcl (Tamsulosin Hcl) 0.4 Mg Cap 1 CAP PO DAILY, #30 CAP 5 Refills Discontinued Medications: Metoprolol Tartrate (Metoprolol Tartrate) 25 Mg Tab 25 MG PO DAILY, TAB Discharge Statement: "Patient was advised to return to the ER or call 911 if any headaches, dizziness, shortness of breath, chest pain, abdominal pain, bleeding, fevers, or worsening of medical condition. Patient was counseled about treatment plan, medications, possible side effects, patientverbalized understanding. All questions were answered to the best of my ability. This discharge took greater then 30 minutes in planning, reviewing documentation, counseling the patient, and discussing with other team members." ASSESSMENT ASSESSMENT Assessment CAD status post angiogram with a stent placements, atherosclerotic heart disease, hypertension CHUNG RAZO MD May 01, 2025 10:53
[2025-05-01 13:12] VITALS: BP 146/54; PULSE 63; RESP 19; TEMP 97.5; O2SAT 98
== END 2025-05-01 13:08 | disposition home or self-care (01) | DRG 321 ==
LOC: EDBD 22:36 → ER 22:36 → OVERFLOW 04-23 02:48 → TELE-CENTR 04-23 04:30 → CENTRAL 04-23 08:15 → TELE-CENTR 04-23 08:23
PROVIDERS: ADMIT Hospitalist; ATTEND Hospitalist
PROC: B211YZZ Fluoroscopy of Multiple Coronary Arteries using Other Contrast (ICD-10-PCS; principal; 2025-04-28)
PROC: 027034Z Dilation of Coronary Artery, One Artery with Drug-eluting Intraluminal Device, Percutaneous Approach (ICD-10-PCS; 2025-04-28)
PROC: B215YZZ Fluoroscopy of Left Heart using Other Contrast (ICD-10-PCS; 2025-04-28)
PROC: 4A023N7 Measurement of Cardiac Sampling and Pressure, Left Heart, Percutaneous Approach (ICD-10-PCS; 2025-04-28)
PROC: 4A033BC Measurement of Arterial Pressure, Coronary, Percutaneous Approach (ICD-10-PCS; 2025-04-28)
PROC: 027135Z Dilation of Coronary Artery, Two Arteries with Two Drug-eluting Intraluminal Devices, Percutaneous Approach (ICD-10-PCS; 2025-04-30)
PROC: B241ZZ3 Ultrasonography of Multiple Coronary Arteries, Intravascular (ICD-10-PCS; 2025-04-30)
PROC: B211YZZ Fluoroscopy of Multiple Coronary Arteries using Other Contrast (ICD-10-PCS; 2025-04-30)
PROC: B215YZZ Fluoroscopy of Left Heart using Other Contrast (ICD-10-PCS; 2025-04-30)
PROC: 4A023N7 Measurement of Cardiac Sampling and Pressure, Left Heart, Percutaneous Approach (ICD-10-PCS; 2025-04-30)
DX: I21.4 Non-ST elevation (NSTEMI) myocardial infarction (principal); I50.33 Acute on chronic diastolic (congestive) heart failure; E11.9 Type 2 diabetes mellitus without complications; I11.0 Hypertensive heart disease with heart failure; E87.6 Hypokalemia; J44.9 Chronic obstructive pulmonary disease, unspecified; I35.1 Nonrheumatic aortic (valve) insufficiency; I48.0 Paroxysmal atrial fibrillation; I45.10 Unspecified right bundle-branch block; E78.5 Hyperlipidemia, unspecified; I35.0 Nonrheumatic aortic (valve) stenosis; I25.119 Atherosclerotic heart disease of native coronary artery with unspecified angina pectoris; F03.90 Unspecified dementia, unspecified severity, without behavioral disturbance, psychotic disturbance, mood disturbance, and anxiety; D64.9 Anemia, unspecified; M54.9 Dorsalgia, unspecified; Z88.2 Allergy status to sulfonamides; Z79.899 Other long term (current) drug therapy; Z79.84 Long term (current) use of oral hypoglycemic drugs; Z95.2 Presence of prosthetic heart valve; Z82.0 Family history of epilepsy and other diseases of the nervous system; Z80.3 Family history of malignant neoplasm of breast; Z79.4 Long term (current) use of insulin; Z98.61 Coronary angioplasty status
CPT/HCPCS: 36415; 71045; 80048; 80053; 80061; 82962; 83036; 83735; 83880; 84443; 84484; 85025; 85610; 85730; 86850; 86900; 86901; 92929; 92941; 93005; 93306; 93458; 93571; 97110; 97116; 97163; 97530; 99152; 99291; A4565; C1874; C1887; G0378; J1100; J1815; J2250; J2405; J2470; J2704; Q9967

== ENCOUNTER 2025-05-08 13:20 | Inpatient (IN) | payer OTHER ==
[~2025-05-08] VITALS: Ht 185.4 cm; Wt 73.7 kg
[~2025-05-08 13:20] MED LIST changes: +ASPI81CH59 PO; +CARV3.1240 PO; +CLOP75TA70 PO; +FER325T PO; +FLU01T PO; +FLUT250M2 INH; +MELA3TAB27 PO; -METO25TA5 PO; +MULT-688 PO; +OMEP20TA PO; +SACU1TAB PO; +TAMS0.4C39 PO
[2025-05-08 15:28] LABS: Basophils # (auto) 0.1 10 ^3/uL (0-0.2); Basophils % (auto) 1.3 % (0.0-2.0); Eosinophils # (auto) 0.4 10 ^3/uL (0-0.8); Eosinophils % (auto) 7.2 % (0.0-7.0); Hematocrit 26.9 % (41.0-53.0); Hemoglobin 8.9 g/dL (13.5-17.5); Lymphocytes % (auto) 17.6 % (10.0-50.0); Mean Corpuscular Hemoglobin 27.8 pg (28.0-32.0); Mean Corpuscular Volume 84.3 fL (80.0-100.0); Monocytes # (auto) 0.6 10 ^3/uL (0-1.3); Monocytes % (auto) 11.3 % (0.0-12.0); Neutrophils # (auto) 3.4 10 ^3/uL (1.6-8.6); Neutrophils % (auto) 62.6 % (37.0-80.0); Nucleated Red Blood Cells % 0.1 %; Platelet Count (auto) 310 10^3/uL (140-450); Red Blood Cells 3.19 10^6/uL (4.5-5.90); White Blood Cell 5.5 10^3/uL (4.4-10.8)
[2025-05-08 15:38] LABS: Potassium 3.7 mmol/L (3.5-5.1); Sodium 141 mmol/L (136-145)
--- NOTE | 2025-05-08 15:38 | DVH ---
EXAM: XY CHEST PORTABLE TECHNIQUE: Single frontal chest radiograph CLINICAL HISTORY: cough, r upper back pain COMPARISON: XY CHEST PORTABLE on DOS: 04/22/25, XY CHEST PORTABLE on DOS: 12/01/23 Findings/Impression: Frontal chest radiograph demonstrates no acute osseous or superficial soft tissue abnormalities. The trachea is midline. The cardiac silhouette and mediastinum are within normal limits. Mildly enlar ged pulmonary arteries. Correlate for pulmonary artery hypertension. No pneumothorax, pleural effusions, or consolidations.
[2025-05-08 15:39] LABS: Anion Gap 11 (5-15); Calcium 9.2 mg/dL (8.7-10.4); Carbon Dioxide 23 mmol/L (20-31)
[2025-05-08 15:44] LABS: BUN/Creatinine Ratio 9.6 (10.0-20.0); Blood Urea Nitrogen 10 mg/dL (9-23)
[2025-05-08 15:47] LABS: Chloride 107 mmol/L (98-107); Glucose 134 mg/dL (74-106)
[2025-05-08 16:13] LABS: Partial Thromboplastin Time 26.8 SEC (24.5-34.5); Prothrombin Time 10.6 sec (9.3-11.8)
--- NOTE | 2025-05-08 16:14 | ED.PDOC ---
SOB-HPI HPI Comments 84 year old male presents to the ED with chief complaint of back pain. Patient reports that he has been experiencing left upper back pain that radiates into his shoulder with associated dry cough and shortness of breath for the past 24 hours. Patient's relays that the patient had recent stents placed in his heart and was discharged on Saturday (1 week ago). states that the patient's pain is now a 4/10 and his cough is mostly resolved. notes she provided the patient a Hydrocodone earlier this morning due to the pain. Patient relays that his pain at this time has improved. Patient denies any recent injury, dizziness, numbness, weakness, tingling, fever, chills, or recent fall. Chief Complaint: Back Pain Time Seen by MD: 16:13 Primary Care Provider: UNKNOWN Reviewed notes: Nurses Notes, Medications, Allergies Information Source: Patient, Spouse Mode of Arrival: Ambulatory Severity: Moderate Timing: Hours Duration: Since onset Context: At Rest PE Risk Factors: None History of: COPD Prehospital treatment: Pain Meds Modifying Factors: Nothing Associated Signs and Symptoms: Cough If cough with SOB: Non-Productive Past Medical History PAST MEDICAL HISTORY: AFIB, CAD, CHF, COPD, Dementia, DM, HTN, AL Surgical History: PTCA Family History Family History: Reviewed,noncontributory to illness Social History Smoker: Non-Smoker Alcohol: Denies ETOH Use Drugs: Denies Drug Use Lives In: Home Constitutional: denies: chills, diaphoresis, fatigue, fever, malaise, sweats, weakness, others EENTM: denies: blurred vision, double vision, ear bleeding, ear discharge, ear drainage, ear pain, ear ringing, eye pain, eye redness, hearing loss, mouth pain, mouth swelling, nasal discharge, nose bleeding, nose congestion, nose pain, photophobia, tearing, throat pain, throat swelling, voice changes, others Respiratory: reports: cough; denies: hemoptysis, orthopnea, SOB at rest, rossy rtness of breath, SOB with excertion, stridor, wheezing, others Cardiovascular: denies: chest pain, dizzy spells, diaphoresis, Dyspnea on exertion, edema, irregular heart beat, left arm pain, lightheadedness, palpitations, PND, syncope, others Gastrointestinal: denies: abdomen distended, abdominal pain, blood streaked bowels, constipated, diarrhea, dysphagia, difficulty swallowing, hematemesis, melena, nausea, poor appetite, poor fluid intake, rectal bleeding, rectal pain, vomiting, others Genitourinary: denies: burning, dysuria, flank pain, frequency, hematuria, inco ntinence, penile discharge, penile sore, pain, testicle pain, testicle swelling, urgency, others Neurological: denies: dizziness, fainting, headache, left sided numbness, left sided weakness, numbness, paresthesia, pre-existing deficit, right sided numbness, right sided weakness, seizure, speech problems, tingling, tremors, weakness, others Musculoskeletal: reports: back pain; denies: gout, joint pain, joint swelling, muscle pain, muscle stiffness, neck pain, others Integumetry: denies: bruises, change in color, change in hair/nails, dryness, laceration, lesions, lumps, rash, wounds, others Allergic/Immunocompromised: denies: Difficulty Healing, Frequent Infections, Hives, Itching, others Hematologic/Lymphatic: denies: anemia, blood clots, easy bleeding, easy bruising, swollen glands, others Endocrine: denies: excessive hunger, excessive sweating, excessive thirst, excessive urination, flushing, intolerance to cold, intolerance to heat, unexplained weight gain, unexplained weight loss, others Psychiatric: denies: anxiety, bipolar disorder, depression, hopeless, panic disorder, schizophrenia, sleepless, suicidal, others All Other Systems: Reviewed and Negative Physical Exam General Appearance: No Apparent Distress HEENT: Other (Pupils and face symmetric. Moist mucous membranes.) Neck: Full Range of Motion, Normal Inspection Respiratory: Chest Non-Tender, Lungs Clear, No Accessory Muscle Use, No Respiratory Distress, Normal Breath Sounds Cardiovascular: No Edema, No JVD, Regular Rate/Rhythm Breast Exam: Deferred Gastrointestinal: Non Tender, Soft Genitalia: Deferred Pelvic: Deferred Rectal: Deferred Extremities: Normal inspection, Normal range of motion, Non-tender, No pedal edema Neurologic: Alert (Oriented x3), Other (Moves all extremities. Extremely hard of hearing. At baseline per family.) Cerebellar Function: NOT DONE Reflexes: NOT DONE Skin: Dry, Normal Color, Warm Lymphatic: NOT DONE EKG EKG : Comments Sinus or ectopic atrial rhythm, rate 101, normal FL interval, QRS prolonged at 154, QTC prolonged at 500, left axis deviation, right bundle branch block and left anterior fascicular block, anteroseptal and lateral T-wave inversion with ST depression Was a procedure done? Was a procedure done?: No Differential Dx Differential Diagnosis: Asthma, Bronchitis, COPD, Dysrhythmia, Myocardial infarction, Pneumonia, Pneumothorax, Pulmonary Embolism, Other (Anginal eq uivalent) X-Ray, Labs, Meds, VS Vital Signs Date Time Temp Pulse Resp B/P (MAP) Pulse Ox O2 Delivery O2 Flow Rate FiO2 05/08/25 18:15 96 20 93 Room Air* 0 21 05/08/25 18:15 97.9 96 20 142/71 (94) 93 97.9 05/08/25 15:39 86 20 146/86 (106) 96 05/08/25 13:42 97.7 102 18 118/66 (83) 97 97.7 05/08/25 13:31 101 Lab Test 05/08/25 17:33 05/08/25 15:13 Range/Units Troponin I High Sensitivity 14 15 </=54 ng/L White Blood Count 5.5 4.4-10.8 10^3/uL Red Blood Count 3.19 L 4.5-5.90 10^6/uL Hemoglobin 8.9 L 13.5-17.5 g/dL Hematocrit 26.9 L 41.0-53.0 % Mean Corpuscular Volume 84.3 80.0-100.0 fL Mean Corpuscular Hemoglobin 27.8 L 28.0-32.0 pg Mean Corpuscular Hemoglobin Concent 33.0 32.0-36.0 g/dL Red Cell Distribution Width 17.0 H 11.8-14.3 % Platelet Count 310 140-450 10^3/uL Mean Platelet Volume 8.0 6.9-10.8 fL Neutrophils (%) (Auto) 62.6 37.0-80.0 % Lymphocytes (%) (Auto) 17.6 10.0-50.0 % Monocytes (%) (Auto) 11.3 0.0-12.0 % Eosinophils (%) (Auto) 7.2 H 0.0-7.0 % Basophils (%) (Auto) 1.3 0.0-2.0 % Neutrophils # (Auto) 3.4 1.6-8.6 10 ^3/uL Lymphocytes # (Auto) 1.0 0.4-5.4 10 ^3/uL Monocytes # (Auto) 0.6 0-1.3 10 ^3/uL Eosinophils # (Auto) 0.4 0-0.8 10 ^3/uL Basophils # (Auto) 0.1 0-0.2 10 ^3/uL Nucleated Red Blood Cells 0.1 % Prothrombin Time 10.6 9.3-11.8 sec Prothrombin Time INR 1.00 0.9-1.15 Activated Partial Thromboplast Time 26.8 24.5-34.5 SEC D-Dimer, Quantitative 0.41 0.0-0.49 mg/L FEU Sodium Level 141 136-145 mmol/L Potassium Level 3.7 3.5-5.1 mmol/L Chloride Level 107 98-107 mmol/L Carbon Dioxide Level 23 20-31 mmol/L Anion Gap 11 5-15 Blood Urea Nitrogen 10 9-23 mg/dL Creatinine 1.04 0.700-1.30 mg/dL Glomerular Filtration Rate Calc 70 >90 mL/min BUN/Creatinine Ratio 9.6 L 10.0-20.0 Serum Glucose 134 H 74-106 mg/dL Calcium Level 9.2 8.7-10.4 mg/dL B-Type Natriuretic Peptide 370.70 0-100 pg/mL Current Medications Medications (Trade) Dose Ordered Sig/Zabrina Route Start Time Stop Time Status Last Admin Acetaminophen/ Hydrocodone Bitart (Heath 5/325MG Tab) 1 tab ONCE ONCE PO 05/08/25 17:00 05/08/25 17:58 DC 05/08/25 18:30 PROCEDURE(s): CXRP - CHEST PORTABLE REASON: cough, r upper back pain ORDER NUMBER(s): [id number], ACCESSION NUMBER(s): [id number] EXAM: XY CHEST PORTABLE TECHNIQUE: Single frontal chest radiograph CLINICAL HISTORY: cough, r upper back pain COMPARISON: XY CHEST PORTABLE on DOS: 04/22/25, XY CHEST PORTABLE on DOS: 12/01/23 Findings/Impression: Frontal chest radiograph demonstrates no acute osseous or superficial soft tissue abnormalities. The trachea is midline. The cardiac silhouette and mediastinum are within normal limits. Mildly enlarged pulmonary arteries. Correlate for pulmonary artery hypertension. No pneumothorax, pleural effusions, or consolidations. ATED BY: ROBERTA WAHL DO DICTATED DATE/TIME: 05/08/25 1535 X-Ray, Labs, Meds, VS Comment 84-year-old male with a history of AFib, CAD, CHF, COPD, hypertension, mi and dementia presenting with thoracic left-sided back pain Vitals remarkable for heart rate 102, oxygen saturation 93% on room air Rhythm strip independently interpreted by me: Sinus or ectopic atrial rhythm, rate no one, no ectopy. Chest x-ray Findings/Impression: Frontal chest radiograph demonstrates no acute osseous or superficial soft tissue abnormalities. The trachea is midline. The cardiac silhouette and mediastinum are within normal limits. Mildly enlarged pulmonary arteries. Correlate for pulmonary artery hype rtension. No pneumothorax, pleural effusions, or consolidations. CBC, basic metabolic panel, troponin, coag panel and D-dimer unremarkable. BNP 370.7 Patient treated with the following in the ED Heath 5/325 mg p.o. with improvement of pain Patient's symptoms may be an anginal equivalent or due to CHF. EKG is abnormal, and chest x-ray is consistent with possible pulmonary hypertension. Oxygen saturation improved from 93 % on room air to normal on nasal cannula oxygen. Plan is to admit the patient for cardiology re-evaluation. Time of 1ST Reevaluation: 17:13 Reevaluation 1ST: Unchanged Patient Education/Counseling: Diagnosis, Treatment Family Education/Counseling: No Family Present Departure 1 Departure Time of Disposition: 19:00 Impression: Primary Impression: Thoracic back pain Qualified Codes: M54.6 - Pain in thoracic spine Additional Impression: Hypoxia Disposition: ADMITTED INPATIENT Admit to: [facility] Condition: Guarded Critical Care Note Critical Care Time?: No Stability Stability form required: No Heart Score Heart Score: Heart Score Response (Comments) Value History Moderate Suspicious [address]-Deviation 2 Age >65 2 Risk Factors >3 or Hx ASHD 2 Troponin Normal limit 0 Total 7 I personally scribed for GERONIMO HEDRICK MD ([email or web address]) on 05/08/25 at 16:14. Electronically submitted by Cesar Cuadra ([email or web address]). GERONIMO HEDRICK MD May 08, 2025 16:14
[2025-05-08 18:15] VITALS: PULSE 96; RESP 20; O2SAT 93
[2025-05-08] MEDS: HYDROcodone-ACET 5/325MG TAB PO ONE (18:30)
[2025-05-08] MEDS ORDERED: MORPHINE SULFATE 4 MG/ML SYR/VIAL IV PRN (22:30)
[2025-05-08] MEDS ORDERED: NITROGLYCERIN 0.4 MG SL TAB SL PRN (22:30)
[2025-05-08] MEDS ORDERED: ONDANSETRON HCL 4 MG/2 ML VIAL IV PRN (22:30)
[2025-05-08] MEDS ORDERED: DEXTROSE (50%) 50ML SYRG IV PRN (22:30)
[2025-05-08] MEDS ORDERED: DOCUSATE SOD 100 MG CAP PO PRN (22:30)
--- NOTE | 2025-05-08 22:54 | DVHHP2 ---
History of Present Illness Reason for Visit: Hypoxemia Review of Systems Allergies: Coded Allergies: Sulfa Antibiotics (Verified Allergy, Unknown, 12/01/23) Medications Current Medications Medications Dose Ordered Sig/Zabrina Route Start Time Stop Time Status Last Admin Dose Admin Aspirin 81 mg DAILY PO 05/09/25 10:00 UNV Tamsulosin HCl 0.4 mg QPM PO 05/09/25 18:00 UNV Furosemide 20 mg DAILY IV 05/09/25 10:00 UNV Hydralazine HCl 10 mg Q6HP PRN IV 05/08/25 22:30 UNV Amlodipine Besylate 5 mg DAILY PO 05/09/25 10:00 UNV Carvedilol 6.25 mg Q12HR PO 05/09/25 10:00 UNV Atorvastatin Calcium 20 mg HS PO 05/09/25 22:00 UNV Famotidine 20 mg DAILY IV 05/09/25 10:00 UNV Diagnostic Test (Pha) 1 strip ACHS 05/09/25 07:00 UNV Insulin Human Regular ACHS SC 05/09/25 07:00 UNV Dextrose 50 ml UD PRN IV 05/08/25 22:30 UNV Sodium Chloride 10 ml Q8HR IV 05/09/25 06:00 UNV Acetaminophen/ Hydrocodone Bitart 1 tab Q4HP PRN PO 05/08/25 22:30 UNV Ondansetron HCl 4 mg Q4HP PRN IV 05/08/25 22:30 UNV Docusate Sodium 100 mg BIDPRN PRN PO 05/08/25 22:30 UNV Acetaminophen 650 mg Q6HP PRN PO 05/08/25 22:30 UNV Nitroglycerin 0.4 mg Q5MINP PRN SL 05/08/25 22:30 UNV Morphine Sulfate 2 mg Q30M PRN IV 05/08/25 22:30 UNV Exam Vital Signs Vital Signs Date Time Temp Pulse Resp B/P (MAP) Pulse Ox O2 Delivery O2 Flow Rate FiO2 05/08/25 22:47 97.7 89 19 144/84 (104) 100 97.7 05/08/25 18:15 Room Air* 0 21 Labs/Xrays Labs Test 05/08/25 19:44 05/08/25 15:13 Range/Units Troponin I High Sensitivity 15 </=54 ng/L White Blood Count 5.5 4.4-10.8 10^3/uL Red Blood Count 3.19 L 4.5-5.90 10^6/uL Hemoglobin 8.9 L 13.5-17.5 g/dL Hematocrit 26.9 L 41.0-53.0 % Mean Corpuscular Volume 84.3 80.0-100.0 fL Mean Corpuscular Hemoglobin 27.8 L 28.0-32.0 pg Mean Corpuscular Hemoglobin Concent 33.0 32.0-36.0 g/dL Red Cell Distribution Width 17.0 H 11.8-14.3 % Platelet Count 310 140-450 10^3/uL Mean Platelet Volume 8.0 6.9-10.8 fL Neutrophils (%) (Auto) 62.6 37.0-80.0 % Lymphocytes (%) (Auto) 17.6 10.0-50.0 % Monocytes (%) (Auto) 11.3 0.0-12.0 % Eosinophils (%) (Auto) 7.2 H 0.0-7.0 % Basophils (%) (Auto) 1.3 0.0-2.0 % Neutrophils # (Auto) 3.4 1.6-8.6 10 ^3/uL Lymphocytes # (Auto) 1.0 0.4-5.4 10 ^3/uL Monocytes # (Auto) 0.6 0-1.3 10 ^3/uL Eosinophils # (Auto) 0.4 0-0.8 10 ^3/uL Basophils # (Auto) 0.1 0-0.2 10 ^3/uL Nucleated Red Blood Cells 0.1 % Prothrombin Time 10.6 9.3-11.8 sec Prothrombin Time INR 1.00 0.9-1.15 Activated Partial Thromboplast Time 26.8 24.5-34.5 SEC D-Dimer, Quantitative 0.41 0.0-0.49 mg/L FEU Sodium Level 141 136-145 mmol/L Potassium Level 3.7 3.5-5.1 mmol/L Chloride Level 107 98-107 mmol/L Carbon Dioxide Level 23 20-31 mmol/L Anion Gap 11 5-15 Blood Urea Nitrogen 10 9-23 mg/dL Creatinine 1.04 0.700-1.30 mg/dL Glomerular Filtration Rate Calc 70 >90 mL/min BUN/Creatinine Ratio 9.6 L 10.0-20.0 Serum Glucose 134 H 74-106 mg/dL Calcium Level 9.2 8.7-10.4 mg/dL B-Type Natriuretic Peptide 370.70 0-100 pg/mL Assessment/Plan My Orders Orders - THOMAS TA DNP Procedure Category Date Status Time Aspirin Tablet PHA 05/09/25 Logged 10:00 Tamsulosin PHA 05/09/25 Logged Hydrochloride (Flomax) 18:00 Furosemide Injection PHA 05/09/25 Logged (Lasix Injection) 10:00 Hydralazine Injection PHA 05/08/25 Logged (Apresoline Inject 22:30 Amlodipine Tablet PHA 05/09/25 Logged (Norvasc Tablet) 10:00 Carvedilol Tablet PHA 05/09/25 Logged (Coreg Tablet) 10:00 Consistent DIET 05/09/25 Transmitted Carb(Ccho)Diabetes Breakfast Atorvastatin (Lipitor) PHA 05/09/25 Logged 22:00 Famotidine Injection PHA 05/09/25 Logged (Pepcid Injection) 10:00 Glucose Blood PHA 05/09/25 Logged (Accu-Chek Comfort 07:00 Insulin R (Human) PHA 05/09/25 Logged (Insulin R) 07:00 Dextrose 50% Syringe PHA 05/08/25 Logged 22:30 Admit ADMIT 05/08/25 Transmitted 22:24 Allergies LUIGI 05/08/25 In Process 22:24 Code Status CODE 05/08/25 Transmitted 22:24 Sodium Chloride Lock PHA 05/09/25 Logged (Saline Lock Ns) 06:00 Oxygen Per Hour RT 05/08/25 Transmitted 22:24 Hydrocodone-Acet PHA 05/08/25 Logged 5/325mg Tab ([place] 22:30 Ondansetron Hcl PHA 05/08/25 Logged (Zofran) 22:30 Docusate Sodium PHA 05/08/25 Logged Capsule (Colace 22:30 Fall Risk Precautions LUIGI 05/08/[address] 22:24 Complete Blood Count LAB 05/09/25 Verified 04:00 Comprehensive LAB 05/09/25 Verified Metabolic Panel 04:00 Condition: Serious LUIGI 05/08/25 In Process 22:24 Acetaminophen Tablet PHA 05/08/25 Logged (Tylenol Tablet) 22:30 Maintain Bed Rest LUIGI 05/08/25 In Process 22:24 Sequential LUIGI 05/08/25 In Process Compression Device Nitroglycerin PHA 05/08/25 Logged Sublingual (Ntrostat 22:30 Morphine Sulfate PHA 05/08/25 Logged Injection 22:30 Stat Ekg For Chest LUIGI 05/08/25 In Process Pain 22:24 Notify Of Changes [facility] 05/08/25 In Process From Base 22:24 Racing Secretary And Handicapper For [facility] 05/08/25 In Process 24 Hours 22:24 Emergency Dysrhythmia [facility] 05/08/25 In Process Protocol 22:24 Rhythm Strips Once [facility] 05/08/25 In Process Every Shift 22:24 Oxygen By Nasal RT 05/08/25 Transmitted Cannula 22:24 THOMAS TA DNP May 08, 2025 22:54
[2025-05-09] VITALS (15 sets, daily range): BP systolic 120–173; BP diastolic 56–96; PULSE 72–101; RESP 16–19; TEMP 97.4–99.6; O2SAT 0–100
--- NOTE | 2025-05-09 00:41 | DVHHP2 ---
MACRINA DONALD LANDFILL G[employer] TECHNICIAN 05/09/25 0041: History of Present Illness Reason for Visit: Back pain History of Present Illness 84-year-old male with past medical history of DM, COPD, AFib, CHF, CAD status post PCI with stent to RCA (04/30/25) was brought in by his with complaints of back pain. Information in his HPI is limited due to the patient being a poor historian secondary to dementia. At the time of my evaluation patient denies chest pain or back pain. During the emergency department evaluation BMP was unremarkable. Troponin /, BNP 370. CXR was interpreted per the radiologist with no acute cardiopulmonary abnormality. On arrival to the emergency department patient's vital signs temperature 97.7, mildly tachycardic HR 102, BP 118/66 with oxygen saturation 97% on room air. Mild tachycardia improve after the patient was given [place] for back pain. Otherwise vital signs have remained stable. This patient was admitted per [facility] hospitalist due to the emergency department's ancillary staff failure to contact the correct admitting team. Cardiovascular: AFIB, CAD, CHF, HTN, [place], hyperipidemia DIRECTOR ADVANCED: Dementia Endocrine: Diabetes Review of Systems Constitutional: No: Fever, Chills, Sweats, Weakness, Malaise, Other Eyes: No: Pain, Vision change, Conjunctivae inflammation, Eyelid inflammation, Other, Redness ENT: No: Ear pain, Ear discharge, Nose pain, Nose discharge, Nose congestion, Mouth pain, Mouth swelling, Throat pain, Throat swelling, Other Respiratory: Cough; No: Dry, Shortness of breath, SOB with excertion, Wheezing, Hemoptysis, Pleuritic Pain, Sputum, Wheezing, Other Cardiovascular: No: Chest Pain, Palpitations, Orthopnea, Paroxysmal Noc. Dyspnea, Edema, Lt Headedness, Other Gastrointestinal: No: Nausea, Vomiting, Abdominal Pain, Diarrhea, Constipation, Melena, Hematochezia, Other Genitourinary: No Dysuria, No Frequency, No Incontinence, No Hematuria, No Retention, No Other Musculoskeletal: back pain; No: other, neck pain, shoulder pain, arm pain, hand pain, leg pain, foot pain Skin: No: Rash, Lesions, Jaundice, Bruising, Other Neurological: No: Weakness, Numbness, Incoordination, Change in speech, Confusion, Seizures, Other Allergies: Coded Allergies: Sulfa Antibiotics (Verified Allergy, Unknown, 12/01/23) Medications Current Medications Medications Dose Ordered Sig/Zabrina Route Start Time Stop Time Status Last Admin Dose Admin Aspirin 81 mg DAILY PO 05/09/25 10:00 Tamsulosin HCl 0.4 mg QPM PO 05/09/25 18:00 Furosemide 20 mg DAILY IV 05/09/25 10:00 Hydralazine HCl 10 mg Q6HP PRN IV 05/08/25 22:30 Amlodipine Besylate 5 mg DAILY PO 05/09/25 10:00 Carvedilol 6.25 mg Q12HR PO 05/09/25 10:00 Atorvastatin Calcium 20 mg HS PO 05/09/25 22:00 Famotidine 20 mg DAILY IV 05/09/25 10:00 Diagnostic Test (Pha) 1 strip ACHS 05/09/25 07:00 Insulin Human Regular ACHS SC 05/09/25 07:00 Dextrose 50 ml UD PRN IV 05/08/25 22:30 Sodium Chloride 10 ml Q8HR IV 05/09/25 06:00 Acetaminophen/ Hydrocodone Bitart 1 tab Q4HP PRN PO 05/08/25 22:30 Ondansetron HCl 4 mg Q4HP PRN IV 05/08/25 22:30 Docusate Sodium 100 mg BIDPRN PRN PO 05/08/25 22:30 Acetaminophen 650 mg Q6HP PRN PO 05/08/25 22:30 Nitroglycerin 0.4 mg Q5MINP PRN SL 05/08/25 22:30 Morphine Sulfate 2 mg Q30M PRN IV 05/08/25 22:30 Albuterol 2.5 mg Q6HPRN PRN NEB 05/09/25 00:45 UNV Ipratropium [place] 0.5 mg Q6HPRN PRN NEB 05/09/25 00:45 UNV Exam Vital Signs Vital Signs Date Time Temp Pulse Resp B/P (MAP) Pulse Ox O2 Delivery O2 Flow Rate FiO2 05/08/25 22:47 97.7 89 19 144/84 (104) 100 97.7 05/08/25 18:15 Room Air* 0 21 General Appearance: Alert (To self and place), Cooperative, No acute distress HEENT: Atraumatic, PERRLA, EOMI, Other (Hard of hearing) Respiratory: Clear to auscultation, Normal air movement Cardiovascular: Regular rate, Normal S1, Normal S2 Abdominal: Normal bowel sounds, Soft, No tenderness Extremities: No clubbing, No cyanosis, No edema Skin: No rashes Neuro: Normal speech Psych/Mental Status: Mental status NL, Mood NL Labs/Xrays Labs Test 05/08/25 19:44 05/08/25 15:13 Range/Units Troponin I High Sensitivity 15 </=54 ng/L White Blood Count 5.5 4.4-10.8 10^3/uL Red Blood Count 3.19 L 4.5-5.90 10^6/uL Hemoglobin 8.9 L 13.5-17.5 g/dL Hematocrit 26.9 L 41.0-53.0 % Mean Corpuscular Volume 84.3 80.0-100.0 fL Mean Corpuscular Hemoglobin 27.8 L 28.0-32.0 pg Mean Corpuscular Hemoglobin Concent 33.0 32.0-36.0 g/dL Red Cell Distribution Width 17.0 H 11.8-14.3 % Platelet Count 310 140-450 10^3/uL Mean Platelet Volume 8.0 6.9-10.8 fL Neutrophils (%) (Auto) 62.6 37.0-80.0 % Lymphocytes (%) (Auto) 17.6 10.0-50.0 % Monocytes (%) (Auto) 11.3 0.0-12.0 % Eosinophils (%) (Auto) 7.2 H 0.0-7.0 % Basophils (%) (Auto) 1.3 0.0-2.0 % Neutrophils # (Auto) 3.4 1.6-8.6 10 ^3/uL Lymphocytes # (Auto) 1.0 0.4-5.4 10 ^3/uL Monocytes # (Auto) 0.6 0-1.3 10 ^3/uL Eosinophils # (Auto) 0.4 0-0.8 10 ^3/uL Basophils # (Auto) 0.1 0-0.2 10 ^3/uL Nucleated Red Blood Cells 0.1 % Prothrombin Time 10.6 9.3-11.8 sec Prothrombin Time INR 1.00 0.9-1.15 Activated Partial Thromboplast Time 26.8 24.5-34.5 SEC D-Dimer, Quantitative 0.41 0.0-0.49 mg/L FEU Sodium Level 141 136-145 mmol/L Potassium Level 3.7 3.5-5.1 mmol/L Chloride Level 107 98-107 mmol/L Carbon Dioxide Level 23 20-31 mmol/L Anion Gap 11 5-15 Blood Urea Nitrogen 10 9-23 mg/dL Creatinine 1.04 0.700-1.30 mg/dL Glomerular Filtration Rate Calc 70 >90 mL/min BUN/Creatinine Ratio 9.6 L 10.0-20.0 Serum Glucose 134 H 74-106 mg/dL Calcium Level 9.2 8.7-10.4 mg/dL B-Type Natriuretic Peptide 370.70 0-100 pg/mL Assessment/Plan Assessment/Plan [facility] care [facility] patient at 0032 05/09/24. Patient stable with no complaints at time of evaluation. Dx Back pain CAD s/p PCI w/ stent RCA Hypertension Dementia DM HX AFIB, controlled Hx COPD not in exacerbation Plan Patient admitted to telemetry per [facility] hospitalist Monitor CBC, BMP, troponin level As needed bronchodilators. As needed supplemental O2 to maintain oxygen saturation greater than 93%. Physical therapy evaluation GI ppx protonix / dvt ppx scd Attempted to contact patient's via telephone to discuss plan of care. However there was no answer Plan discussed with: Patient My Orders Orders - MACRINA DONALD NP Procedure Category Date Status Time Pt Request For Service PT 05/09/25 Logged 00:36 Albuterol Medneb PHA 05/09/25 Logged (Ventolin Medneb) 00:45 Ipratropium Medneb PHA 05/09/25 Logged (Atrovent Medneb) 00:45 Date of Service: May 09, 2025 Billing Provider: SANDRA MCFARLANE MD Common Visit Codes: NOT BILLABLE SANDRA MCFARLANE MD 05/09/25 1750: Review of Systems Allergies: Coded Allergies: Sulfa Antibiotics (Verified Allergy, Unknown, 12/01/23) MACRINA DONALD NP May 09, 2025 00:41 SANDRA MCFARLANE MD May 09, 2025 17:50
[2025-05-09] MEDS ORDERED: IPRATROPIUM BROM 0.5 MG/2.5ML INH SOL NEB PRN (00:45)
[2025-05-09] MEDS ORDERED: ALBUTEROL SULF 2.5 MG/0.5ML(0.5%) NEB SOLN NEB PRN (00:45)
[2025-05-09] MEDS: hydrALAZINE HCL 20 MG/ML VL IV PRN (01:44)
[2025-05-09 05:14] LABS: Basophils # (auto) 0.1 10 ^3/uL (0-0.2); Eosinophils # (auto) 0.3 10 ^3/uL (0-0.8); Eosinophils % (auto) 4.6 % (0.0-7.0); Hematocrit 28.4 % (41.0-53.0); Hemoglobin 9.2 g/dL (13.5-17.5); Lymphocytes # (auto) 0.9 10 ^3/uL (0.4-5.4); Lymphocytes % (auto) 13.8 % (10.0-50.0); Mean Corpuscular Hemoglobin 27.3 pg (28.0-32.0); Mean Corpuscular Hgb Conc. 32.2 g/dL (32.0-36.0); Mean Corpuscular Volume 84.5 fL (80.0-100.0); Monocytes # (auto) 0.6 10 ^3/uL (0-1.3); Monocytes % (auto) 8.6 % (0.0-12.0); Neutrophils # (auto) 4.7 10 ^3/uL (1.6-8.6); Nucleated Red Blood Cells % 0.1 %; Platelet Count (auto) 338 10^3/uL (140-450); Red Blood Cells 3.36 10^6/uL (4.5-5.90); Red Cell Distribution Width 16.8 % (11.8-14.3); White Blood Cell 6.5 10^3/uL (4.4-10.8)
[2025-05-09 05:34] LABS: Alanine Aminotransferase 11 U/L (7-40); Anion Gap 13 (5-15); BUN/Creatinine Ratio 10.7 (10.0-20.0); Bilirubin, Total 0.7 mg/dL (0.2-1.0); Blood Urea Nitrogen 11 mg/dL (9-23); Calcium 9.4 mg/dL (8.7-10.4); Carbon Dioxide 21 mmol/L (20-31); Chloride 106 mmol/L (98-107); Potassium 3.6 mmol/L (3.5-5.1); Sodium 140 mmol/L (136-145); Total Protein 7.8 g/dL (5.7-8.2)
[2025-05-09 05:38] LABS: Alkaline Phosphatase 128 U/L (46-116); Aspartate Aminotransferase 9 U/L (13-40); Glucose 185 mg/dL (74-106)
[2025-05-09] MEDS: METOPROLOL TARTRATE 1MG/1ML-5ML VIAL IV ONE (05:54)
[2025-05-09] MEDS: SODIUM CHLOR 0.9% PF (SALINE LOCK) 10ML VIAL/SYR IV SCH (05:54)
[2025-05-09] MEDS: ACCU-CHEK COMFORT CURVE STRIP VI SCH (06:30)
[2025-05-09] MEDS: InsuLIN REG 1unit/0.01ml Soln (100units/ml) SC SCH (06:32)
[2025-05-09] MEDS: CLOPIDOGREL BISULFATE 75 MG TAB PO SCH (11:34)
[2025-05-09] MEDS: amLODIPine BESYLATE 5 MG TAB PO SCH (11:34)
[2025-05-09] MEDS: ASPirin 81 mg TAB PO SCH (11:34)
[2025-05-09] MEDS: FAMOTIDINE (10MG/ML) 2ML VL IV SCH (11:35)
[2025-05-09] MEDS: FUROSEMIDE 20 MG/2 ML VIAL IV SCH (11:35)
[2025-05-09] MEDS: CARVEDILOL 3.125 MG TAB PO SCH (11:36)
[2025-05-09] MEDS: HYDROcodone-ACET 5/325MG TAB PO PRN (16:12)
[2025-05-09] MEDS: TAMSULOSIN HYDROCHLORIDE 0.4 MG CAP PO SCH (17:34)
[2025-05-09] MEDS: ATORVASTATIN 20 MG TAB PO SCH (21:39)
[2025-05-10] VITALS (8 sets, daily range): BP systolic 109–147; BP diastolic 48–62; PULSE 74–84; RESP 17–20; TEMP 97.5–99.2; O2SAT 94–97
[2025-05-10] MEDS: ACETAMINOPHEN 325 MG TAB PO PRN (10:07)
--- NOTE | 2025-05-10 12:20 | ECG ---
[facility] Test Date: 2025-05-08 Test Time: 13:31:19 Pat Name: CONNOR ALBERTO Department: ER Room: [facility]6T B Gender: M Sub Assembly Team Worker: SHARON : 1940 Requested By: GERONIMO ESPINOZA Order Number: [id number] Reading MD: Doni Puentes Measurements Intervals [place] Rate: 101 P: -50 SC: 155 QRS: -84 QRSD: 154 T: 85 QT: 385 QTc: 500 Interpretive Statements Sinus or ectopic atrial tachycardia RBBB and LAFB Electronically Signed On 05-12-2025 20:47:19 PDT by Doni Puentes Please click the below link to view image of tracing.
--- NOTE | 2025-05-10 16:42 | DVHDS2 ---
Discharge Summary Date of Admission May 08, 2025 at 22:24 Date of Discharge: May 10, 2025 Labs/Diagnostic Data: Laboratory Results Test 05/10/25 10:19 05/09/25 04:45 05/08/25 15:13 POC Glucose 188 mg/dl (70-106) White Blood Count 6.5 10^3/uL (4.4-10.8) Red Blood Count 3.36 10^6/uL (4.5-5.90) Hemoglobin 9.2 g/dL (13.5-17.5) Hematocrit 28.4 % (41.0-53.0) Mean Corpuscular Volume 84.5 fL (80.0-100.0) Mean Corpuscular Hemoglobin 27.3 pg (28.0-32.0) Mean Corpuscular Hemoglobin Concent 32.2 g/dL (32.0-36.0) Red Cell Distribution Width 16.8 % (11.8-14.3) Platelet Count 338 10^3/uL (140-450) Mean Platelet Volume 8.3 fL (6.9-10.8) Neutrophils (%) (Auto) 72.0 % (37.0-80.0) Lymphocytes (%) (Auto) 13.8 % (10.0-50.0) Monocytes (%) (Auto) 8.6 % (0.0-12.0) Eosinophils (%) (Auto) 4.6 % (0.0-7.0) Basophils (%) (Auto) 1.0 % (0.0-2.0) Neutrophils # (Auto) 4.7 10 ^3/uL (1.6-8.6) Lymphocytes # (Auto) 0.9 10 ^3/uL (0.4-5.4) Monocytes # (Auto) 0.6 10 ^3/uL (0-1.3) Eosinophils # (Auto) 0.3 10 ^3/uL (0-0.8) Basophils # (Auto) 0.1 10 ^3/uL (0-0.2) Nucleated Red Blood Cells 0.1 % Sodium Level 140 mmol/L (136-145) Potassium Level 3.6 mmol/L (3.5-5.1) Chloride Level 106 mmol/L (98-107) Carbon Dioxide Level 21 mmol/L (20-31) Anion Gap 13 (5-15) Blood Urea Nitrogen 11 mg/dL (9-23) Creatinine 1.03 mg/dL (0.700-1.30) Glomerular Filtration Rate Calc 71 mL/min (>90) BUN/Creatinine Ratio 10.7 (10.0-20.0) Serum Glucose 185 mg/dL (74-106) Calcium Level 9.4 mg/dL (8.7-10.4) Total Bilirubin 0.7 mg/dL (0.2-1.0) Aspartate Amino Transferase (AST) 9 U/L (13-40) Alanine Aminotransferase (ALT) 11 U/L (7-40) Alkaline Phosphatase 128 U/L (46-116) Troponin I High Sensitivity 15 ng/L (</=54) Total Protein 7.8 g/dL (5.7-8.2) Albumin 4.0 g/dL (3.2-4.8) Prothrombin Time 10.6 sec (9.3-11.8) Prothrombin Time INR 1.00 (0.9-1.15) Activated Partial Thromboplast Time 26.8 SEC (24.5-34.5) D-Dimer, Quantitative 0.41 mg/L FEU (0.0-0.49) B-Type Natriuretic Peptide 370.70 pg/mL (0-100) Other Laboratory Tests 05/09/25 04:45 Brief Hx & Hospital Course: 84-year-old male with a known history of CAD status post PCI to RCA as well as LAD and circumflex recently presented to the hospital with the upper back pain. Patient was eventually admitted. Patient's hospital course was eventful for acute delirium with underlying Alzheimer dementia. Patient's pain is better controlled. Patient's upper back pain is likely musculoskeletal. Patient is back to baseline eventually as per patient's at bedside. Patient is being discharged under stable condition with a close follow up as an outpatient with the PCP as well as Cardiology and return to ER if there is any concern. Condition at Discharge: Stable Final Diagnosis/Problems List 1. Upper back pain, resolved likely musculoskeletal 2. CAD status post PCI to RCA, lad and circumflex recently 3. Hypertension 4. Dyslipidemia 5. Alzheimer dementia Discharge Disposition: Home with Health Services SNF Discharge Will this Physician continue t: No Discharge Instruct/Medications Diet: Cardiac 2g Na,low cholest Activity: No Restrictions, As Tolerated Follow Up/Referral: Follow up with the PCP in 1-2 weeks Follow up with Dr. Puentes in 1-2 weeks Medications: Resume home medications. Discharge Statement: "Patient was advised to return to the ER or call 911 if any headaches, dizziness, shortness of breath, chest pain, abdominal pain, bleeding, fevers, or worsening of medical condition. Patient was counseled about treatment plan, medications, possible side effects, patientverbalized understanding. All questions were answered to the best of my ability. This discharge took greater then 30 minutes in planning, reviewing documentation, counseling the patient, and discussing with other team members." ASSESSMENT ASSESSMENT Assessment 1. Upper back pain, resolved likely musculoskeletal 2. CAD status post PCI to RCA, lad and circumflex recently 3. Hypertension 4. Dyslipidemia 5. Alzheimer dementia Date of Service: May 10, 2025 Billing Provider: SANDRA MCFARLANE MD Common Visit Codes: NOT BILLABLE SANDRA MCFARLANE MD May 10, 2025 16:42
== END 2025-05-10 17:30 | disposition home or self-care (01) | DRG 552 ==
LOC: ER 13:20 → OVERFLOW 22:24 → TELE-WESTW 23:57
PROVIDERS: ADMIT Nurse Practitioner Family; ATTEND Nurse Practitioner Family
DX: M54.89 Other dorsalgia (principal); I25.10 Atherosclerotic heart disease of native coronary artery without angina pectoris; I11.0 Hypertensive heart disease with heart failure; I50.9 Heart failure, unspecified; E11.9 Type 2 diabetes mellitus without complications; J44.9 Chronic obstructive pulmonary disease, unspecified; I48.91 Unspecified atrial fibrillation; E78.5 Hyperlipidemia, unspecified; G30.9 Alzheimer's disease, unspecified; F02.80 Dementia in other diseases classified elsewhere, unspecified severity, without behavioral disturbance, psychotic disturbance, mood disturbance, and anxiety; R09.02 Hypoxemia; Z95.5 Presence of coronary angioplasty implant and graft; Z79.899 Other long term (current) drug therapy
CPT/HCPCS: 36415; 71045; 80048; 80053; 82962; 83880; 84484; 85025; 85379; 85610; 85730; 93005; 96374; 96375; 97163; G0378; J1815; J3490